=== PATIENT | female | born 1960 | race Caucasian/White ===

== ENCOUNTER 2020-02-18 09:33 | Outpatient (REF) | payer MEDICAID, SELFPAY ==
[2020-02-18 10:53] LABS: Alanine Aminotransferase 18 U/L (0-31); Albumin Level 4.6 g/dL (3.5-5.0); Alkaline Phosphatase 71 U/L (39-117); Anion Gap 13 (12-20); Aspartate Amino Transferase 24 U/L (5-31); Bilirubin Total 0.9 mg/dL (0.0-1.0); Blood Urea Nitrogen 15 mg/dL (9-16); Calcium 9.3 mg/dL (8.4-10.2); Carbon Dioxide 26 mmol/L (22-29); Chloride 104 mmol/L (96-108); Cholesterol 194 mg/dL; Estimated Glomerular Filt Rate > 60; Glucose Random 97 mg/dL (60-115); HDL Cholesterol 43 mg/dL; LDL Cholesterol Calculated 122 mg/dl; Potassium 4.2 mmol/l (3.3-5.1); Sodium 139 mmol/L (135-145); Total Protein 8.1 g/dL (6.5-8.0); Triglycerides 146 mg/dL
[2020-02-19 09:22] LABS: Mumps Virus IgG Antibody <9.00 AU/mL; Rubeola IgG (Measles) >300.00 AU/mL
[2020-02-19 17:37] LABS: Rubella IgG Antibody 9.86 Index
== END 2020-02-18 09:34 | disposition home or self-care (01) ==
LOC: HO.LAB 09:33
PROVIDERS: PCP Nurse Practitioner Community Health; Visit Provider Nurse Practitioner Community Health
DX: E78.5 Hyperlipidemia, unspecified (principal)
CPT/HCPCS: 80053; 80061; 86735; 86762; 86765

== ENCOUNTER 2020-05-21 14:33 | Outpatient (REF) | payer MEDICAID, SELFPAY ==
--- NOTE | ~2020-05-21 | MM_ITS ---
EXAMINATION: MM DIAGNOSTIC DIGITAL BREAST TOMOSYNTHESIS, BILATERAL CLINICAL INFORMATION: Six-month follow-up for question of bilateral breast densities which were not identified on ultrasound. The lifetime risk of breast cancer based on the Tyrer-Cuzick Model is 5.1%. COMPARISON: Mammography: October 07, 2019 and studies dating back to February 22, 2012 TECHNIQUE: Digital breast tomosynthesis is performed in both the craniocaudal and mediolateral oblique views along with computer-aided detection (CAD). Synthesized 2D images are generated from the tomosynthesis. FINDINGS: The breasts are heterogeneously dense, which may obscure small masses (ACR BI-RADS breast composition Category c). There are no significant masses, abnormal calcifications, or other abnormalities. Previously noted density superior to represent superimposition of fibroglandular tissue. Results are provided to the patient at time of visit by the technologist. MM/MM tomosynthesis diagnostic BI IMPRESSION: There are no significant changes from prior study. ASSESSMENT: BI-RADS 1: Negative RECOMMENDATION: Routine annual mammography screening due in 12 months. This patient's information was entered into a reminder system with a target due date for their next mammogram.
== END 2020-05-21 14:34 | disposition home or self-care (01) ==
LOC: HO.MAMMO 14:33
PROVIDERS: Visit Provider Nurse Practitioner Community Health
DX: R92.8 Other abnormal and inconclusive findings on diagnostic imaging of breast (principal)
CPT/HCPCS: 77062; 77066

== ENCOUNTER 2020-11-19 15:03 | Emergency (ER) | payer MEDICAID, SELFPAY ==
[2020-11-19 16:37] VITALS: BP 153/67; PULSE 73; RESP 18; TEMP 36.9; O2SAT 97; BMI 29.2
--- NOTE | 2020-11-19 18:18 | ED.GENADULT ---
HPI - General Adult General Chief complaint: Allergic Reaction Stated complaint: facial swelling Time Seen by Provider: 11/19/20 17:43 Source: patient and family (daughter) Mode of arrival: ambulatory Limitations: language barrier History of Present Illness HPI narrative: 60-year-old female here with her daughter who is interpreting presents for left facial swelling that happened at 2:30 p.m. after drinking lemonade. Patient was concerned she was having an allergic reaction. Stated she suddenly felt the left side of her face swollen. She did not feel short of breath, no throat swelling or lip swelling, no wheezing. No dental pain, patient has dentures. No fevers. 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 Related Data Previous Rx's Medication Instructions Recorded clindamycin HCl 300 mg capsule 450 mg PO TID 10 Days #45 cap 11/19/20 Allergies Allergy/AdvReac Type Severity Reaction Status Date / Time Penicillins Allergy Severe ANAPHYLAXIS Verified 11/19/20 17:35 AND BLEEDING penicillin V Allergy Unknown Unknown Verified 11/19/20 17:35 Review of Systems Constitutional: Constitutional: Denies body ache(s), Denies chills, Denies fatigue, Denies fever(s), Denies headache(s), Denies malaise and Denies weakness Eyes: Eyes: Denies diplopia ENT: Denies vertigo, Denies dizziness, Denies otalgia, Reports facial pain, Denies headache(s), Denies nasal congestion, Denies nasal discharge, Denies post nasal drip and Denies throat swelling Cardiovascular: Cardiovascular: Denies chest pain, Denies syncope, Denies leg edema, Denies lightheadedness, Denies Loss of Consciousness, Denies palpitations and Denies dyspnea Respiratory: Respiratory: Denies chest congestion, Denies cough and Denies dyspnea Gastrointestinal: Gastrointestinal: Denies abdominal pain, Denies nausea and Denies vomiting Musculoskeletal: Musculoskeletal: Reports no additional musculoskeletal complaints Neurologic: Denies confusion, Denies vertigo, Denies dizziness, Denies syncope, Denies headache(s) and Denies weakness Psychiatric: Psychiatric: Denies anxiety, Denies confusion and Denies depression Endocrine: Endocrine: Denies fatigue and Denies palpitations Allergic/Immunologic: Allergic/Immunologic: Denies throat swelling PMFSH Social History Social History Advance Directives: No Advance Directives Information Provided: No Patient : No Physical Exam Vital Signs: Vital Signs: Last Vital Signs Temp 98.4 F 11/19/20 16:37 Pulse 73 11/19/20 16:37 Resp 18 11/19/20 16:37 BP 153/67 H 11/19/20 16:37 Pulse Ox 97 11/19/20 16:37 Body Mass Index 29.2 Const: General: No confusion Nutritional Appearance: well nourished Orientation/consciousness: No confusion Limitations: no limitations HENMT: Other: No trismus Head: Yes normal to inspection, Yes normocephalic and Yes atraumatic Ears: hearing grossly normal bilaterally, TM's normal bilaterally and EAC's normal General nose exam: Normal external nose present Face and sinus: Yes Facial tenderness on exam of face and sinuses (left parotid area) Mouth: Normal oral and palatal mucosa present Teeth and gingiva: dentures Throat: Yes uvula midline and Yes abnormal tonsil (left tonsil stone) Eyes: Conjunctivae: conjunctivae normal Pupils: Equal, round and reactive pupils present EOM: EOMs intact bilaterally Neck: Neck: Yes full ROM, Yes no lymphadenopathy and Yes supple Resp: Effort & Inspection: normal respiratory effort and able to speak in complete sentences Auscultation: clear to auscultation bilaterally, no crackles, no rales, no rhonchi and no wheezes Cardio: Rate: regular rate Rhythm: regular rhythm Heart sounds: S1 normal heart sound present and S2 normal heart sound present GI: Inspection: Yes normal to inspection Palpation (GI): Soft to palpation, nontender, no guarding and not rigid Percussion: Yes normal to percussion Auscultation: normal bowel sounds Skin: General skin exam: no rashes or lesions noted Neuro: General: No confusion Cranial nerves: Yes Equal, round and reactive pupils present Extrem: General: Yes normal to inspection and Yes full ROM Psych: Appearance: grossly normal Affect: normal affect Attitude: cooperative Thought process: Normal thought process present Course Course Course Narrative: Patient has left facial swelling at the angle of her mandible, that got much worse when she drank a sour drink earlier today. On exam, patient has mildly erythematous posterior oropharynx, with an left tonsillar stone. Patient is tender swollen and mildly red around her parotid gland. Started her on clindamycin, gave return precautions to return if she has trouble opening her mouth, if she has fevers, if she has trouble swallowing. Discharge Plan Discharge Clinical Impression: Acute parotitis Patient Disposition: Home, Self-Care Additional Instructions: Please fill your prescription for antibiotics and take for the next 10 days. Please stay hydrated and take Tylenol or ibuprofen for pain Please return if you have fevers, he have trouble opening her mouth, or for any other new or concerning symptoms. We did see a tonsil stone in your left tonsil, I think this does not have anything to do with your current symptoms Please call your primary care provider for follow-up appointment within the next 2 weeks Prescriptions: New clindamycin HCl 300 mg capsule 450 mg PO TID 10 Days Qty: 45 RF: 0
== END 2020-11-19 18:22 | disposition home or self-care (01) ==
PROVIDERS: Emergency Provider Emergency Medicine
DX: K11.21 Acute sialoadenitis (principal); Z79.899 Other long term (current) drug therapy
CPT/HCPCS: 99283; 99284

== ENCOUNTER 2021-05-23 10:43 | Outpatient (REF) | payer MEDICAID, SELFPAY ==
--- NOTE | ~2021-05-23 | MM_ITS ---
EXAMINATION: MM SCREENING DIGITAL BREAST TOMOSYNTHESIS, BILATERAL CLINICAL INFORMATION: Screening. Asymptomatic. The lifetime risk of breast cancer based on the Tyrer-Cuzick Model is 4%. COMPARISON: Mammography: 05/21/2020, 10/07/2019, 04/07/2019, 03/26/2019, 07/07/2016 TECHNIQUE: Digital breast tomosynthesis is performed in both the craniocaudal and mediolateral oblique views along with computer-aided detection (CAD). Synthesized 2D images are generated from the tomosynthesis. Additional left CC view is provided. FINDINGS: The breasts are heterogeneously dense, which may obscure small masses (ACR BI-RADS breast composition Category c). Parenchymal pattern is similar to prior studies. 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 No interval significant mass or architectural abnormality or abnormal calcifications. The axilla and skin contours are unremarkable. MM/MM tomosynthesis screening BI IMPRESSION: No significant changes from prior studies. ASSESSMENT: BI-RADS 2: Benign RECOMMENDATION: Routine annual mammography screening. This patient's information was entered into a reminder system with a target due date for their next mammogram.
== END 2021-05-23 10:44 | disposition home or self-care (01) ==
LOC: HO.MAMMO 10:43
PROVIDERS: Visit Provider Nurse Practitioner Community Health
DX: Z12.31 Encounter for screening mammogram for malignant neoplasm of breast (principal)
CPT/HCPCS: 77063; 77067

== ENCOUNTER 2021-09-14 04:04 | Emergency (ER) | payer MEDICAID, SELFPAY ==
--- NOTE | ~2021-09-14 | XR_ITS ---
EXAMINATION: XR CHEST CLINICAL INFORMATION: Shortness of breath COMPARISON: 02/08/2017 TECHNIQUE: Frontal view of the chest was obtained. FINDINGS: The lungs are clear with no focal consolidation. No evidence of pneumothorax, pulmonary edema, or pleural effusions. The cardiomediastinal silhouette is unremarkable. No acute osseous findings. XR/XR chest 1V IMPRESSION: No acute cardiopulmonary findings.
[2021-09-14 04:18] VITALS: BP 156/61; PULSE 109; TEMP 38.8; O2SAT 98; BMI 30.9
[2021-09-14 04:43] LABS: Hematocrit 36.6 % (37.0-47.0); Hemoglobin 12.9 g/dl (12.0-16.0); Mean Corpuscular HGB Conc 35.2 g/dl (31.0-35.0); Mean Corpuscular Hemoglobin 27.6 pg (27.0-33.0); Mean Corpuscular Volume 78.2 fL (80.0-98.0); Mean Platelet Volume 10.3 fL (9.4-12.3); Platelet Count 199 X10*3/uL (160-400); Red Blood Count 4.68 X10*6/uL (4.20-5.50); Red Cell Distribution Width 13.8 % (11.0-16.0); White Blood Count 8.3 X10*3/uL (4.8-10.8)
[2021-09-14 04:47] LABS: Appearance Urine CLEAR; Color Urine YELLOW; Glucose Urine UA NEG (NEG); Leukocyte Esterase Urine NEG (NEG); Nitrite Urine NEG (NEG); Specific Gravity - Urine 1.025 (1.005-1.025); UACC Culture Trigger NO; Urine Blood 2+ (NEG); Urine Ketones NEG (NEG); Urine Protein TRACE MG/DL (NEG-TRACE)
[2021-09-14 04:52] LABS: COVID-19 Test Positive (Negative)
[2021-09-14 04:56] LABS: IDNOW Serial# 16C4AD1C; Influenza A Negative (Negative); Influenza B2 Negative (Negative)
[2021-09-14 05:05] LABS: Bacteria Urine 1+ /LPF; Mucus Urine 2+ /LPF; RBC Urine 0-2 /HPF (0); Squamous Epithelial Cell Urine 3+ /LPF
[2021-09-14 05:17] LABS: Alanine Aminotransferase 22 U/L (0-31); Albumin Level 4.5 g/dL (3.5-5.0); Alkaline Phosphatase 69 U/L (39-117); Anion Gap 11 (12-20); Aspartate Amino Transferase 27 U/L (5-31); Bilirubin Total 0.6 mg/dL (0.0-1.0); Blood Urea Nitrogen 13 mg/dL (9-16); Carbon Dioxide 27 mmol/L (22-29); Chloride 101 mmol/L (96-108); Creatinine Clr Calc Pharmacy 54.6; Estimated Glomerular Filt Rate 56; Glucose Random 97 mg/dL (60-115); Potassium 3.9 mmol/L (3.3-5.1); Sodium 135 mmol/L (135-145)
[2021-09-14 05:27] VITALS: TEMP 39.4
[2021-09-14] MEDS: Ondansetron ODT 4 MG TAB.RAPDIS TRANSLINGU (05:28)
[2021-09-14] MEDS: Acetaminophen 325 MG TABLET 650 MG PO (05:28)
--- NOTE | 2021-09-14 06:04 | ED_ITS ---
HPI - General Adult General Chief complaint: General Medical Stated complaint: 105 temp, vomiting, diarrhea, sore throat Time Seen by Provider: 09/14/21 05:56 Source: patient Mode of arrival: ambulatory Limitations: no limitations History of Present Illness HPI narrative: Patient comes to the emergency room complaining of fever, nausea, vomiting, sore throat. Patient states all her symptoms started approximately 3 hours ago, patient states that 3 days ago she was exposed to a patient that likely had COVID-19. Patient is not immunized for COVID-19. Patient states. Patient denies chest pain or shortness of breath. In triage, oxygen saturation 98%. Also, patient states that the vomiting is triggering her vertigo, due to the vomiting she has been unable to take any medications for vertigo. Related Data Previous Rx's Medication Instructions Recorded clindamycin HCl 300 mg capsule 450 mg PO TID 10 days #45 caps 11/19/20 ibuprofen 600 mg tablet 600 mg PO QID PRN fever or pain 09/14/21 #20 tabs meclizine 50 mg tablet 50 mg PO BID PRN dizziness #20 tabs 09/14/21 nirmatrelvir 300 mg (150 mg x See Rx Instructions PO .COMPLEX 09/14/21 2)-ritonavir 100 mg tablet (EUA) #30 tabs (Paxlovid) ondansetron HCl 4 mg tablet 4 mg PO Q6H PRN nausea and 09/14/21 vomiting #14 tabs Allergies Allergy/AdvReac Type Severity Reaction Status Date / Time Penicillins Allergy Severe ANAPHYLAXIS Verified 11/19/20 17:35 AND BLEEDING penicillin V Allergy Unknown Unknown Verified 11/19/20 17:35 Review of Systems Review of Systems: Constitutional : No Weight loss, complaining of fever, chills, fatigue, generalized malaise ENT/Mouth : No Hearing loss, No Ear Pain, No Nasal Congestion, No Sinus Pain, No Hoarseness, No sore throat, No Rhinorrhea, No Swallowing Difficulty Eyes: No Eye Pain, No Swelling, No Redness, No Foreign Body, No Discharge, No Vision Changes Cardiovascular : No Chest Pain, No SOB, No Dyspnea on Exertion, No Orthopnea, No Edema, No Palpitations Respiratory : No Cough, No Sputum, No Wheezing, No Smoke Exposure, No Dyspnea Gastrointestinal : Complaining of nausea and vomiting, No Diarrhea, No Constipation, complaining of mild epigastric pain,, No Hematochezia, No Melena Genitourinary : no irregular bleeding, No Dysuria, No Urinary Frequency, No Hematuria, No Urinary Incontinence, No Urgency, No Flank Pain, No Urinary Flow Changes, No Hesitancy Musculoskeletal : No joint pain, No Myalgias, No Joint Swelling Skin : No Skin Lesions, No rash Neuro : No Weakness, No Numbness, No Paresthesias, No Loss of Consciousness, No Dizziness, No Headache Psych : No Anxiety/Panic, No Depression, No SI/HI/AH/VH, No Social Issues, Heme/Lymph: No Bruising, No Bleeding,No Lymphadenopathy Endocrine : No Polyuria, No Polydipsia, No Temperature Intolerance [facility] Social History Social History Advance Directives: No Physical Exam ED Vital Signs: Vital Signs - 24 hr 09/14/21 04:18 09/14/21 05:27 09/14/21 07:08 Temperature 102 F H 102.9 F H 99.2 F Pulse Rate 109 H 106 H Respiratory Rate 18 Blood Pressure 156/61 H 116/53 L Pulse Oximetry 98 96 Oxygen Delivery Method Room Air Room Air BMI result Body Mass Index 30.9 Course Course Course Narrative: Discussed the labs and imaging with the patient. Patient aware that she tested positive for COVID-19. As mentioned above, patient has not been immunized. Patient was p.o. challenged, did not vomit, patient states that she feels well to go home, declined admission. Patient's oxygen saturation remains 96-98% on room air. Vertigo resolved. Medical Decision Making Lab Data Result diagrams: 09/14/21 04:31 09/14/21 04:31 Labs: Lab Results 09/14/21 09/14/21 09/14/21 Range/Units 04:31 04:31 04:31 WBC 8.3 (4.8-10.8) X10*3/uL RBC 4.68 (4.20-5.50) X10*6/uL Hgb 12.9 (12.0-16.0) g/dl Hct 36.6 L (37.0-47.0) % MCV 78.2 L (80.0-98.0) fL MCH 27.6 (27.0-33.0) pg MCHC 35.2 H (31.0-35.0) g/dl RDW 13.8 (11.0-16.0) % Plt Count 199 (160-400) X10*3/uL MPV 10.3 (9.4-12.3) fL Absolute Nucleated RBC 0.000 (0.0-0.012) X10*3/uL Nucleated RBC % (auto) 0.0 (0.0-0.2) /100WBC Sodium 135 (135-145) mmol/L Potassium 3.9 (3.3-5.1) mmol/L Chloride 101 (96-108) mmol/L Carbon Dioxide 27 (22-29) mmol/L Anion Gap 11 L (12-20) BUN 13 (9-16) mg/dL Creatinine 1.01 (0.5-1.4) mg/dL Estim Creat Clear Calc 54.6 Estimated GFR 56 Random Glucose 97 (60-115) mg/dL Calcium 9.0 (8.4-10.2) mg/dL Total Bilirubin 0.6 (0.0-1.0) mg/dL AST 27 (5-31) U/L ALT 22 (0-31) U/L Alkaline Phosphatase 69 (39-117) U/L Troponin I High Sens (<3.5-17.0) ng/L Total Protein 8.0 (6.5-8.0) g/dL Albumin 4.5 (3.5-5.0) g/dL Urine Color Urine Appearance Urine pH (5.0-8.0) Ur Specific [place] (1.005-1.025) Urine Protein (NEG-TRACE) MG/DL Urine Glucose (UA) (NEG) MG/DL Urine Ketones (NEG) MG/DL Urine Blood (NEG) Urine Nitrite (NEG) Ur Leukocyte Esterase (NEG) Urine RBC (0) /HPF Urine WBC (0-4) /HPF Ur Squamous Epith Cells /LPF Urine Bacteria /LPF Urine Mucus /LPF COVID-19 (GABRIELA) Positive A (Negative) COVID-19 Clin Com See Note Influenza Type A (ESTEFANI) (Negative) Influenza Type B (ESTEFANI) (Negative) Influenza A & B Note 09/14/21 09/14/21 09/14/21 Range/Units 04:31 04:31 04:31 WBC (4.8-10.8) X10*3/uL RBC (4.20-5.50) X10*6/uL Hgb (12.0-16.0) g/dl Hct (37.0-47.0) % MCV (80.0-98.0) fL MCH (27.0-33.0) pg MCHC (31.0-35.0) g/dl RDW (11.0-16.0) % Plt Count (160-400) X10*3/uL MPV (9.4-12.3) fL Absolute Nucleated RBC (0.0-0.012) X10*3/uL Nucleated RBC % (auto) (0.0-0.2) /100WBC Sodium (135-145) mmol/L Potassium (3.3-5.1) mmol/L Chloride (96-108) mmol/L Carbon Dioxide (22-29) mmol/L Anion Gap (12-20) BUN (9-16) mg/dL Creatinine (0.5-1.4) mg/dL Estim Creat Clear Calc Estimated GFR Random Glucose (60-115) mg/dL Calcium (8.4-10.2) mg/dL Total Bilirubin (0.0-1.0) mg/dL AST (5-31) U/L ALT (0-31) U/L Alkaline Phosphatase (39-117) U/L Troponin I High Sens < 3.5 (<3.5-17.0) ng/L Total Protein (6.5-8.0) g/dL Albumin (3.5-5.0) g/dL Urine Color YELLOW Urine Appearance CLEAR Urine pH 6.0 (5.0-8.0) Ur Specific [place] 1.025 (1.005-1.025) Urine Protein TRACE (NEG-TRACE) MG/DL Urine Glucose (UA) NEG (NEG) MG/DL Urine Ketones NEG (NEG) MG/DL Urine Blood 2+ H (NEG) Urine Nitrite NEG (NEG) Ur Leukocyte Esterase NEG (NEG) Urine RBC 0-2 (0) /HPF Urine WBC 5-9 H (0-4) /HPF Ur Squamous Epith Cells 3+ /LPF Urine Bacteria 1+ /LPF Urine Mucus 2+ /LPF COVID-19 (GABRIELA) (Negative) COVID-19 Clin Com Influenza Type A (ESTEFANI) Negative (Negative) Influenza Type B (ESTEFANI) Negative (Negative) Influenza A & B Note See Note Discharge Plan Discharge Clinical Impression: COVID-19, Nausea & vomiting, Vertigo Patient Disposition: Home, Self-Care Instructions: Acute Nausea and Vomiting (ED), COVID-19 (Coronavirus Disease 2019) (ED) Additional Instructions: Please follow-up with your primary care physician tomorrow. If you have any worsening or new symptoms, please return to the emergency room or call 911 Prescriptions: New Paxlovid (EUA) 300 mg (150 mg x 2)-100 mg tablet See Rx Instructions .ROUTE .COMPLEX Qty: 30 0RF Rx Instructions: take TWO 150 mg tablets of nirmatrelvir with ONE 100 mg tablet of ritonavir twice daily for 5 days meclizine 50 mg tablet 50 mg PO BID PRN (Reason: dizziness) Qty: 20 0RF ondansetron HCl 4 mg tablet 4 mg PO Q6H PRN (Reason: nausea and vomiting) Qty: 14 0RF ibuprofen 600 mg tablet 600 mg PO QID PRN (Reason: fever or pain) Qty: 20 0RF No Action clindamycin HCl 300 mg capsule 450 mg PO TID 10 Days Qty: 45 0RF
[2021-09-14] MEDS: 0.9 % Sodium Chloride 1,000 ML 999 ML IVCONT (06:23)
[2021-09-14] MEDS: Meclizine HCl 25 MG TABLET 50 MG PO (06:24)
[2021-09-14] MEDS: diazePAM 2 MG TABLET PO (06:24)
[2021-09-14] MEDS: Prochlorperazine Edisylate 10 MG/2 ML VIAL IVPUSH (06:24)
[2021-09-14 06:36] LABS: Troponin-I High Sensitivity < 3.5 ng/L (<3.5-17.0)
[2021-09-14 07:08] VITALS: BP 116/53; PULSE 106; RESP 18; TEMP 37.3; O2SAT 96
== END 2021-09-14 08:16 | disposition home or self-care (01) ==
PROVIDERS: Emergency Provider Emergency Medicine
DX: U07.1 COVID-19 (principal); R11.2 Nausea with vomiting, unspecified; R42 Dizziness and giddiness; Z79.899 Other long term (current) drug therapy
CPT/HCPCS: 71045; 80053; 81001; 84484; 85027; 87502; 87635; 96361; 96374; 99284

== ENCOUNTER 2022-02-19 19:48 | Emergency (ER) | payer MEDICAID, SELFPAY ==
[2022-02-19 20:31] VITALS: BP 155/72; PULSE 110; RESP 20; TEMP 37.3; O2SAT 99; BMI 29.4
[2022-02-19 20:52] VITALS: BP 148/80; PULSE 104; RESP 18; TEMP 37.1; O2SAT 99
--- NOTE | 2022-02-19 21:00 | ED.GENADULT ---
HPI - General Adult General Chief complaint: General Medical Stated complaint: abd pain, vomit, throat pain Time Seen by Provider: 02/19/22 21:00 Source: patient and family Mode of arrival: ambulatory Limitations: language barrier History of Present Illness HPI narrative: 62-year-old female presents with body aches, cough, sore throat, nausea and vomiting. Nausea and vomiting started today. Onset (ago): day(s) Severity: moderate Severity scale (1-10): 5 Quality: aching Pain Consistency: constant Associated symptoms: cough, fever/chills, headaches, loss of appetite, malaise, nausea/vomiting and weakness Treatments prior to arrival: none Related Data Previous Rx's Medication Instructions Recorded clindamycin HCl 300 mg capsule 450 mg PO TID 10 days #45 caps 11/19/20 ibuprofen 600 mg tablet 600 mg PO QID PRN fever or pain 09/14/21 #20 tabs meclizine 50 mg tablet 50 mg PO BID PRN dizziness #20 tabs 09/14/21 nirmatrelvir 300 mg (150 mg See Rx Instructions PO .COMPLEX 09/14/21 x2)-ritonavir 100 mg tablet,dose #30 tabs pack(EUA) (Paxlovid) ondansetron HCl 4 mg tablet 4 mg PO Q6H PRN nausea and 09/14/21 vomiting #14 tabs albuterol sulfate 90 mcg/actuation 2 inh inhalation Q4H PRN shortness 02/19/22 breath activated powder inhaler of breath or wheezing #1 ea benzonatate 100 mg capsule 100 mg PO TID PRN cough #14 caps 02/19/22 ondansetron 4 mg disintegrating 4 mg PO Q8H PRN nausea and 02/19/22 tablet vomiting #20 tabs Allergies Allergy/AdvReac Type Severity Reaction Status Date / Time Penicillins Allergy Severe ANAPHYLAXIS Verified 02/19/22 20:39 AND BLEEDING penicillin V Allergy Unknown Unknown Verified 02/19/22 20:39 Review of Systems Review of Systems: Constitutional: positive Fever, positive Chills, positive fatigue, positive Malaise ENT/Mouth: positive sore throat, positive runny nose Eyes: No Discharge Cardiovascular: No Chest Pain, No SOB Respiratory: Positive Cough, No Sputum, No Wheezing, No Dyspnea Gastrointestinal: Positive Nausea, phos Vomiting, No Diarrhea Musculoskeletal: positive Myalgia Skin: No rash Neuro: Positive Headache Yes all other systems are reviewed and are negative [facility] Past Medical History Attestation statement: The following information was validated with the patient. Source: old records reviewed Social History Social History Advance Directives: No Advance Directives Information Provided: No Physical Exam ED Vital Signs: Vital Signs - 24 hr 02/19/22 20:31 02/19/22 20:52 Temperature 99.2 F 98.8 F Pulse Rate 110 H 104 H Respiratory Rate 20 18 Blood Pressure 155/72 H 148/80 H Pulse Oximetry 99 99 Oxygen Delivery Method Room Air Room Air BMI result Body Mass Index 29.4 Appearance: Alert. Oriented X3. No acute distress. Eyes: Pupils equal, round and reactive to light. ENT: Pharynx normal. Positive rhinorrhea. Neck: Normal inspection. Neck supple. CVS: Tachycardic heart rate and rhythm. Pulses normal. Respiratory: No respiratory distress. Breath sounds normal. Abdomen: Soft and nontender. Skin: Skin warm and dry. Normal skin color. Normal skin turgor. Extremities: No lower extremity edema. Gait well balanced well coordinated. Neuro: No motor deficit. No sensory deficit. Cranial nerves 2-12 intact Course Course Course Narrative: 62-year-old female presents with upper respiratory symptoms consistent with influenza versus COVID. Patient also complains of nausea and vomiting. Will order COVID influenza RSV testing. Patient is afebrile, appears nontoxic, does have some rhinorrhea, and appears tired. Patient is tachycardic, low likelihood of sepsis at this time as I feel that her symptoms are most likely viral. If viral panel comes back negative will investigate for other sources of infection. COVID influenza RSV positive for COVID. I did discuss supportive measures with this patient. She recently had paxlovid, paxlovid not indicated for this patient at this time. I did discuss this in detail with her family. Patient verbalized understanding of and agrees to plan of care discharge home. Verbalized understanding of supportive measures. Verbalized understanding of signs symptoms indicating need for emergent intervention. Medications Administered Discontinued Medications Generic Name Dose Route Start Last Admin Trade Name Freq PRN Reason Stop Dose Admin Acetaminophen 650 mg 02/19/22 21:01 02/19/22 21:21 Acetaminophen 325 Mg Tablet PO 02/19/22 21:02 650 mg ONCE ONE Administration Ondansetron HCl 4 mg 02/19/22 21:23 02/19/22 21:32 Ondansetron Odt 4 Mg Tab.Rapdis TRANSLINGU 02/19/22 21:24 4 mg ONCE ONE Administration Medical Decision Making Differential Diagnosis Differential Diagnoses: The differential diagnosis associated with the presentation includes COVID, influenza, RSV, pneumonia, viral syndrome Admission/Observation Consideration of admission/observation: Escalation of care including admission/observation considered Becomes hypoxic will consider admission otherwise discharged home Lab Data MDM Lab Attestation statement: I reviewed the patient's lab results. Labs: Lab Results 02/19/22 Range/Units 20:55 Influenza Type A (PCR) NEGATIVE (Negative) Influenza Type B (PCR) NEGATIVE (Negative) RSV RNA Qual (PCR) NEGATIVE (Negative) SARS-CoV-2 RNA (RT-PCR) POSITIVE A (Negative) Discharge Plan Discharge Clinical Impression: COVID-19 Patient Disposition: Home, Self-Care Instructions: Covid-19 Viral Syndrome and Novel Coronavirus (ED) Hey/Ath, COVID-19 (Coronavirus Disease 2019) (ED) Additional Instructions: Has dado positivo por COVID-19. Favor de continuar con las medidas de apoyo. [place] Tylenol 650 mg cada 6 horas y Motrin 600 mg cada 6 horas seg?n sea necesario para controlar el dolor y la fiebre. Anote a qu? hora aleyda estos medicamentos para evitar jorge sobredosis accidental. [place] Tessalon Perles cada 8 horas seg?n sea necesario para la tos. Use un inhalador de albuterol para la dificultad para respirar. [place] Zofran cada 8 horas seg?n sea necesario para las n?useas y los v?mitos. [place] medicamento tambi?n lo hace debajo de la lengua. Descansa, sayda muchos l?quidos. Imriam por elegir lashonda departamento de emergencias para dumont evaluaci?n. Por favor, yesica un seguimiento con el m?dico de atenci?n primaria seg?n sea necesario. Regrese al departamento de emergencias por cualquier s?ntoma nuevo, preocupante o que empeore. You tested positive for COVID-19. Please continue with supportive measures. Alternate Tylenol 650 mg every 6 hours and Motrin 600 mg every 6 hours as needed for pain and fever management. Write down what time you take these medications to prevent accidental overdose. Take Tessalon Perles every 8 hours as needed for cough. Use albuterol inhaler for shortness of breath. Take Zofran every 8 hours as needed for nausea and vomiting. This medication does also under the tongue. Rest, drink plenty of fluids. Thank you for choosing this emergency department for evaluation. Please follow-up with primary care physician as needed. Return to the emergency department for any new, concerning, or worsening symptoms. Prescriptions: New ondansetron 4 mg tablet,disintegrating 4 mg PO Q8H PRN (Reason: nausea and vomiting) Qty: 20 0RF albuterol sulfate 90 mcg/actuation aerosol powdr breath activated 2 inh inhalation Q4H PRN (Reason: shortness of breath or wheezing) Qty: 1 0RF Rx Instructions: May dispense medication equivalent accepted by patient's insurance benzonatate 100 mg capsule 100 mg PO TID PRN (Reason: cough) Qty: 14 0RF No Action clindamycin HCl 300 mg capsule 450 mg PO TID 10 Days Qty: 45 0RF Paxlovid (EUA) 300 mg (150 mg x 2)-100 mg tablet See Rx Instructions .ROUTE .COMPLEX Qty: 30 0RF Rx Instructions: take TWO 150 mg tablets of nirmatrelvir with ONE 100 mg tablet of ritonavir twice daily for 5 days meclizine 50 mg tablet 50 mg PO BID PRN (Reason: dizziness) Qty: 20 0RF ondansetron HCl 4 mg tablet 4 mg PO Q6H PRN (Reason: nausea and vomiting) Qty: 14 0RF ibuprofen 600 mg tablet 600 mg PO QID PRN (Reason: fever or pain) Qty: 20 0RF Interventions: ED Discharge Assessment Last Done: 02/19/22 22:08 Discharge Date/Time: 02/19/22 22:10
[2022-02-19 21:37] LABS: Influenza A PCR NEGATIVE (Negative); Influenza B PCR NEGATIVE (Negative); Resp Syncy Virus RNA Qual PCR NEGATIVE (Negative); SARS COV2 PCR INHOUSE POSITIVE (Negative)
== END 2022-02-19 22:10 | disposition home or self-care (01) ==
PROVIDERS: Emergency Medicine; Emergency Provider Internal Medicine; PCP Physician Assistant Medical
DX: U07.1 COVID-19 (principal); R05.9 Cough, unspecified; R50.9 Fever, unspecified; M79.10 Myalgia, unspecified site
CPT/HCPCS: 0241U; 99283

== ENCOUNTER 2022-04-24 23:27 | Emergency (ER) | payer MEDICAID, SELFPAY ==
--- NOTE | ~2022-04-24 | CT_ITS ---
EXAMINATION: CT ABDOMEN AND PELVIS WITHOUT CONTRAST CLINICAL INFORMATION: Right flank pain, question stone COMPARISON: 11/08/2018 TECHNIQUE: Multidetector volumetric imaging was performed from the superior aspect of the liver through the pubic symphysis. Sagittal and coronal reformatted images were obtained on the technologist's workstation. This CT examination was performed using dose optimization techniques as appropriate, variously including the following: *Automated exposure control *Adjustment of mA and/or kV according to patient size (this includes techniques or standardized protocols for targeted exams where dose is matched to indication/reason for exam; i.e. extremities or head) *Use of iterative reconstruction technique DLP: 527 mGy-cm FINDINGS: LUNG BASES: The visualized lung bases are unremarkable. LIVER, GALLBLADDER, AND BILIARY TREE: The liver is normal in size, shape, and attenuation. No focal hepatic lesion or biliary ductal dilatation is identified. Patient is status post cholecystectomy. PANCREAS: Unremarkable. SPLEEN: Unremarkable. ADRENAL GLANDS: Unremarkable. KIDNEYS AND URETERS: The kidneys are normal in size, shape, and attenuation. No hydronephrosis, hydroureter, or calculi seen. No perinephric stranding. BLADDER: Unremarkable. GASTROINTESTINAL TRACT: No evidence of bowel obstruction or significant wall thickening. The appendix is unremarkable. No free fluid or free air is seen. ABDOMINAL WALL: No significant hernia is appreciated. LYMPH NODES: Normal. VASCULAR: Unremarkable. PELVIC VISCERA: An approximately 1.8 cm exophytic fibroid is suspected off the uterine fundus. OSSEOUS STRUCTURES: Scattered endplate osteophytes in the spine. CT/CT abdomen pelvis wo IV con IMPRESSION: No acute findings identified in the abdomen/pelvis. No hydronephrosis or obstructing calculus.
[2022-04-24 23:36] VITALS: BP 176/73; PULSE 80; RESP 20; TEMP 36.6; O2SAT 98; BMI 32.3
--- NOTE | 2022-04-25 00:03 | ED.BACK ---
HPI - Back Pain/Injury General Chief Complaint: Back Pain/Injury Stated Complaint: Lower back and right side pain Time Seen by Provider: 04/25/22 00:03 Source: patient Mode of arrival: ambulatory Limitations: no limitations History of Present Illness HPI Narrative: Patient history of back pain in the past comes here for similar pain in the right side started early today increases on movement associated with nausea no vomiting no urinary complaints patient never had kidney stones no fever or chills Related Data Previous Rx's Medication Instructions Recorded clindamycin HCl 300 mg capsule 450 mg PO TID 10 days #45 caps 11/19/20 ibuprofen 600 mg tablet 600 mg PO QID PRN fever or pain 09/14/21 #20 tabs meclizine 50 mg tablet 50 mg PO BID PRN dizziness #20 tabs 09/14/21 nirmatrelvir 300 mg (150 mg See Rx Instructions PO .COMPLEX 09/14/21 x2)-ritonavir 100 mg tablet,dose #30 tabs pack(EUA) (Paxlovid) ondansetron HCl 4 mg tablet 4 mg PO Q6H PRN nausea and 09/14/21 vomiting #14 tabs albuterol sulfate 90 mcg/actuation 2 inh inhalation Q4H PRN shortness 02/19/22 breath activated powder inhaler of breath or wheezing #1 ea benzonatate 100 mg capsule 100 mg PO TID PRN cough #14 caps 02/19/22 ondansetron 4 mg disintegrating 4 mg PO Q8H PRN nausea and 02/19/22 tablet vomiting #20 tabs cefuroxime axetil 250 mg tablet 250 mg PO BID 7 days #14 tabs 04/25/22 cyclobenzaprine 10 mg tablet 10 mg PO Q8H #20 tabs 04/25/22 tramadol 50 mg tablet 50 mg PO Q8H PRN pain #9 tabs 04/25/22 Allergies Allergy/AdvReac Type Severity Reaction Status Date / Time Penicillins Allergy Severe ANAPHYLAXIS Verified 02/19/22 20:39 AND BLEEDING penicillin V Allergy Unknown Unknown Verified 02/19/22 20:39 Review of Systems Review of Systems: Yes all other systems are reviewed and are negative PMFSH Social History Social History Advance Directives: No Patient : No Physical Exam Vital Signs: Vital Signs: Last Vital Signs Temp 97.9 F 04/24/22 23:36 Pulse 80 04/24/22 23:36 Resp 15 04/25/22 00:50 BP 176/73 H 04/24/22 23:36 Pulse Ox 98 04/24/22 23:36 O2 Del Method 04/24/22 23:36 BMI result Body Mass Index 32.3 Appearance: Alert. Oriented X3. In mod distress. Eyes: PERRLA, No Nystagmus ENT: Pharynx normal. Oral Mucosa moist Neck: Normal inspection. Neck supple. CVS: Normal heart rate and rhythm. Pulses normal. Respiratory: No respiratory distress. Equal air entry bilateral, no wheezing/rales/rhonchi Abdomen: Soft and nontender. Bowel sounds are present, no mass palpable,R CVA tenderness back; diffuse muscle tenderness right-sided traumatic chest all the way to R lower ribcage Skin: Skin warm and dry. Normal skin color. Normal skin turgor. Extremities: No lower extremity edema. No calf tenderness Neuro: Oriented X 3. No motor deficit. No sensory deficit.No cerebellar signs , cranial nerves II-XII intact Medications Administered Discontinued Medications Generic Name Dose Route Start Last Admin Trade Name Freq PRN Reason Stop Dose Admin Sodium Chloride 1,000 mls @ 999 mls/hr 04/25/22 00:08 04/25/22 00:50 Ns IV 04/25/22 01:08 999 mls/hr .Q1H1M ONE Administration Ceftriaxone Sodium 1 gm/ 50 mls @ 100 mls/hr 04/25/22 02:35 04/25/22 02:53 Sodium Chloride IV 04/25/22 03:04 100 mls/hr ONCE ONE Administration Morphine Sulfate 4 mg 04/25/22 00:09 04/25/22 00:50 Morphine Sulfate 4 Mg/Ml Cartridge IVPUSH 04/25/22 00:10 4 mg ONCE ONE Administration Protocol Ondansetron HCl 4 mg 04/25/22 00:09 04/25/22 00:50 Ondansetron Hcl 4 Mg/2 Ml Vial IVPUSH 04/25/22 00:10 4 mg ONCE ONE Administration Medical Decision Making Medical Decision Making MDM Narrative: Patient with similar pain off and on the past at this time workup is negative CT scan negative for kidney stone likely patient has muscular pain patient UA showed wbc's and large amount of leuko Estrase will start patient home on Ceftin received 1 dose of Rocephin in the ER Lab Data MDM Lab Attestation statement: I reviewed the patient's lab results. 04/25/22 00:03 04/25/22 00:03 Labs: Lab Results 04/25/22 04/25/22 04/25/22 Range/Units 00:03 00:03 02:07 WBC 10.8 (4.8-10.8) X10*3/uL RBC 5.05 (4.20-5.50) X10*6/uL Hgb 13.8 (12.0-16.0) g/dl Hct 39.4 (37.0-47.0) % MCV 78.0 L (80.0-98.0) fL MCH 27.3 (27.0-33.0) pg MCHC 35.0 (31.0-35.0) g/dl RDW 13.6 (11.0-16.0) % Plt Count 237 (160-400) X10*3/uL MPV 10.2 (9.4-12.3) fL Immature Gran % (Auto) 0.3 (0.0-0.4) % Neut % (Auto) 62.6 (45-73) % Lymph % (Auto) 27.3 (20-40) % [place] % (Auto) 7.6 (2-11) % Eos % (Auto) 1.6 (0-4) % Baso % (Auto) 0.6 (0-2) % Lymph # (Auto) 3.0 (1.2-4.9) X10*3/uL [place] # (Auto) 0.8 (0.1-1.2) X10*3/uL Eos # (Auto) 0.2 (0.0-0.4) X10*3/uL Baso # (Auto) 0.1 (0.0-0.2) X10*3/uL Abs Immat Gran (auto) 0.03 (0.00-0.03) X10*3/uL Absolute Neuts (auto) 6.8 (2.0-8.3) x10*3/uL Absolute Nucleated RBC 0.000 (0.0-0.012) X10*3/uL Nucleated RBC % (auto) 0.0 (0.0-0.2) /100WBC Sodium 138 (135-145) mmol/L Potassium 3.9 (3.3-5.1) mmol/L Chloride 103 (96-108) mmol/L Carbon Dioxide 25 (22-29) mmol/L Anion Gap 14 (12-20) BUN 12 (9-16) mg/dL Creatinine 0.87 (0.5-1.4) mg/dL Estim Creat Clear Calc 58.9 Estimated GFR > 60 Random Glucose 96 (60-115) mg/dL Calcium 9.2 (8.4-10.2) mg/dL Urine Color Yellow Urine Appearance Clear Urine pH 6.0 (5.0-9.0) Ur Specific [place] 1.010 (1.005-1.025) Urine Protein Negative (Neg-Trace) mg/dL Urine Glucose (UA) Negative (Negative) mg/dL Urine Ketones Negative (Negative) mg/dL Urine Blood Negative (Negative) Urine Nitrite Negative (Negative) Ur Leukocyte Esterase Large (3+) H (Negative) Urine RBC 0-2 (0-2) /HPF Urine WBC >50 H (0-5) /HPF Ur Squamous Epith Cells 3-5 (0-2) /HPF Urine Bacteria None Seen (None Seen) Hyaline Casts 0-2 (0-2) /LPF Discharge Plan Discharge Clinical Impression: Strain of lumbar region, UTI (urinary tract infection) Patient Disposition: Home, Self-Care Instructions: Urinary Tract Infection in Women (ED), Low Back Strain (ED) Additional Instructions: Take tramadol for pain and Flexeril for muscle relaxer Your CT scan is negative for any acute pathology no kidney stone was seen Follow with PCP not better Drink plenty of fluids and take antibiotic for UTI Prescriptions: New cyclobenzaprine 10 mg tablet 10 mg PO Q8H Qty: 20 0RF tramadol 50 mg tablet 50 mg PO Q8H PRN (Reason: pain) Qty: 9 0RF cefuroxime axetil 250 mg tablet 250 mg PO BID 7 Days Qty: 14 0RF No Action clindamycin HCl 300 mg capsule 450 mg PO TID 10 Days Qty: 45 0RF Paxlovid (EUA) 300 mg (150 mg x 2)-100 mg tablet See Rx Instructions .ROUTE .COMPLEX Qty: 30 0RF Rx Instructions: take TWO 150 mg tablets of nirmatrelvir with ONE 100 mg tablet of ritonavir twice daily for 5 days meclizine 50 mg tablet 50 mg PO BID PRN (Reason: dizziness) Qty: 20 0RF ondansetron HCl 4 mg tablet 4 mg PO Q6H PRN (Reason: nausea and vomiting) Qty: 14 0RF ibuprofen 600 mg tablet 600 mg PO QID PRN (Reason: fever or pain) Qty: 20 0RF ondansetron 4 mg tablet,disintegrating 4 mg PO Q8H PRN (Reason: nausea and vomiting) Qty: 20 0RF albuterol sulfate 90 mcg/actuation aerosol powdr breath activated 2 inh inhalation Q4H PRN (Reason: shortness of breath or wheezing) Qty: 1 0RF Rx Instructions: May dispense medication equivalent accepted by patient's insurance benzonatate 100 mg capsule 100 mg PO TID PRN (Reason: cough) Qty: 14 0RF
[2022-04-25 00:08] LABS: MANUAL DIFF FLAG NO
[2022-04-25 00:13] LABS: Basophils Absolute Auto 0.1 X10*3/uL (0.0-0.2); Basophils Percent Auto 0.6 % (0-2); Eosinophils Absolute Auto 0.2 X10*3/uL (0.0-0.4); Eosinophils Percent Auto 1.6 % (0-4); Hematocrit 39.4 % (37.0-47.0); Hemoglobin 13.8 g/dl (12.0-16.0); Imm Gran Abs Auto 0.03 X10*3/uL (0.00-0.03); Imm Gran Pct Auto 0.3 % (0.0-0.4); Lymphocytes Percent Auto 27.3 % (20-40); Mean Corpuscular Hemoglobin 27.3 pg (27.0-33.0); Mean Platelet Volume 10.2 fL (9.4-12.3); Monocytes Absolute Auto 0.8 X10*3/uL (0.1-1.2); Monocytes Percent Auto 7.6 % (2-11); Neutrophils Absolute Auto 6.8 x10*3/uL (2.0-8.3); Neutrophils Percent Auto 62.6 % (45-73); Platelet Count 237 X10*3/uL (160-400); Red Blood Count 5.05 X10*6/uL (4.20-5.50); Red Cell Distribution Width 13.6 % (11.0-16.0); White Blood Count 10.8 X10*3/uL (4.8-10.8)
[2022-04-25 00:25] LABS: Anion Gap 14 (12-20); Blood Urea Nitrogen 12 mg/dL (9-16); Calcium 9.2 mg/dL (8.4-10.2); Carbon Dioxide 25 mmol/L (22-29); Chloride 103 mmol/L (96-108); Creatinine Clr Calc Pharmacy 58.9; Estimated Glomerular Filt Rate > 60; Glucose Random 96 mg/dL (60-115); Potassium 3.9 mmol/L (3.3-5.1); Sodium 138 mmol/L (135-145)
[2022-04-25 00:50] VITALS: RESP 15
[2022-04-25] MEDS: Morphine Sulfate 4 MG/ML CARTRIDGE IVPUSH (00:50)
[2022-04-25] MEDS: 0.9 % Sodium Chloride 1,000 ML 999 ML IV (00:50)
[2022-04-25] MEDS: ondansetron HCL 4 MG/2 ML VIAL IVPUSH (00:50)
[2022-04-25 02:19] LABS: Appearance Urine Clear; Color Urine Yellow; Glucose Urine UA Negative (Negative); Leukocyte Esterase Urine Large (3+) (Negative); Nitrite Urine Negative (Negative); UMIC TRIGGER UACC YES; Urine Blood Negative (Negative); Urine Ketones Negative (Negative); Urine Protein Negative (Neg-Trace)
[2022-04-25 02:24] LABS: Bacteria Urine None Seen (None Seen); Hyaline Casts Urine 0-2 /LPF (0-2); RBC Urine 0-2 /HPF (0-2); UACC Culture Trigger YES; WBC Urine >50 /HPF (0-5)
--- NOTE | 2022-04-25 02:40 | PC.NURSE ---
Per Dr. Sullivan blood cultures not needed to be drawn.
[2022-04-25] MEDS: cefTRIAXone sodium 1 GM in 0.9 % Sodium Chloride 50 ML IV (02:53)
--- NOTE | 2022-04-25 03:03 | PC.NURSE ---
Patient is alert and oriented x3. Patient is afebrile vital signs are stable and medicated with morphine with improvement in level of pain from 10 out of 10 to 3 out of 10. IV Ceftrixone administered per MAR. Patient tolerating IV antibiotics without adverse reactions noted. Call saez within patient reach. Son at patients bedside and will be discharged home with oral antibiotics.
[2022-04-25 04:29] VITALS: BP 166/87; PULSE 87; RESP 16; TEMP 36.6; O2SAT 98
== END 2022-04-25 04:33 | disposition home or self-care (01) ==
PROVIDERS: Emergency Provider Internal Medicine; PCP Nurse Practitioner Community Health
DX: N39.0 Urinary tract infection, site not specified (principal); M54.50 Low back pain, unspecified; R11.2 Nausea with vomiting, unspecified; Z79.899 Other long term (current) drug therapy
CPT/HCPCS: 36415; 74176; 80048; 81001; 85025; 87086; 96361; 96365; 96375; 99284; 99285; J0696; J2270; J2405

== ENCOUNTER 2022-05-27 08:08 | Outpatient (REF) | payer MEDICAID, SELFPAY ==
--- NOTE | ~2022-05-27 | MM_ITS ---
EXAMINATION: MM SCREENING DIGITAL BREAST TOMOSYNTHESIS, BILATERAL CLINICAL INFORMATION: Screening. Asymptomatic. The lifetime risk of breast cancer based on the Tyrer-Cuzick Model is 4%. COMPARISON: Multiple prior mammography exams, most recent 05/23/2021. TECHNIQUE: Digital breast tomosynthesis is performed in both the craniocaudal and mediolateral oblique views along with computer-aided detection (CAD). Synthesized 2D images are generated from the tomosynthesis. FINDINGS: The breasts are heterogeneously dense, which may obscure small masses (ACR BI-RADS breast composition Category c). Parenchymal pattern is similar to prior studies and there is no interval significant mass or architectural abnormality or developing density. There are scattered bilateral parenchymal asymmetries again seen similar to prior studies. Chronic bilateral retroareolar duct ectasia again seen. There are no abnormal calcifications. The axilla are unremarkable. No significant changes. MM/MM tomosynthesis screening BI IMPRESSION: No mammographic evidence of malignancy. ASSESSMENT: BI-RADS 2: Benign RECOMMENDATION: Routine annual mammography screening. This patient's information was entered into a reminder system with a target due date for their next mammogram.
== END 2022-05-27 08:09 | disposition home or self-care (01) ==
LOC: HO.MAMMO 08:08
PROVIDERS: PCP Nurse Practitioner Community Health; Visit Provider Nurse Practitioner Community Health
DX: Z12.31 Encounter for screening mammogram for malignant neoplasm of breast (principal)
CPT/HCPCS: 77063; 77067

== ENCOUNTER 2023-04-16 10:04 | Emergency (ER) | payer MEDICAID, SELFPAY ==
--- NOTE | ~2023-04-16 | CT_ITS ---
CT ANGIOGRAM NECK WITH CONTRAST CT ANGIOGRAM BRAIN WITH CONTRAST CLINICAL INFORMATION: Severe headache and dizziness COMPARISON: CTA neck 02/18/2017. Brain MRI from the same day. TECHNIQUE: Test bolus sequences followed by intravenous administration 70 mL of Omnipaque 350. Helical imaging was performed in the axial plane from the thoracic inlet to the skull vertex. Delayed postcontrast imaging of the head was also performed. The data was processed at the angio technologist workstation for generation of MIP sequences. Angled MIPs and volume rendered reformatted images were also generated at an offline 3D workstation under concurrent supervision. Stenoses are assessed in accordance with NASCET criteria unless otherwise indicated. This CT examination was performed using dose optimization techniques as appropriate, variously including the following: *Automated exposure control *Adjustment of mA and/or kV according to patient size (this includes techniques or standardized protocols for targeted exams where dose is matched to indication/reason for exam; i.e. extremities or head) *Use of iterative reconstruction technique FINDINGS: BRAIN: There is mineralization within the globus pallidus bilaterally. [There is no intracranial hemorrhage, hydrocephalus, extra-axial surface collection, midline shift, or other herniation pattern. Reyes to white matter differentiation is diffusely maintained without evidence of an evolved acute territorial infarct. The basilar cisterns are preserved. No significant soft tissue abnormality. No acute osseous abnormality. Small fluid level within the left maxillary sinus. CERVICAL SOFT TISSUES AND LUNG APICES: The imaged upper lungs are clear. Multilevel cervical spondylosis. There is a heterogeneous and enlarged multinodular thyroid gland with the largest nodule measuring at least 2.2 cm in size. Thyroid ultrasound recommended for further assessment. NECK CTA: [There is a classic 3 vessel configuration of the aortic arch. Proximal arch vessels are non-stenotic. The vertebral arteries are codominant. No significant ostial stenosis is visualized on either side. Both vertebral arteries are widely patent throughout their extracranial cervical course. Both common carotid arteries are normal in course and caliber.] Retropharyngeal course of the proximal cervical internal carotid arteries bilaterally. BRAIN CTA: [There is normal opacification of major intracranial arteries. No focal flow-limiting stenosis nor discrete proximal large artery occlusion. 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 Timing of the contrast bolus allows assessment of the major dural venous sinuses, which all opacify normally] CT/CT angio head neck IMPRESSION: - No acute intracranial findings. - No acute arterial occlusions and no significant arterial stenoses within the head or neck. 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 - There is a heterogeneous and enlarged multinodular thyroid gland with the largest nodule measuring at least 2.2 cm in size. Thyroid ultrasound recommended for further assessment. - Multilevel cervical spondylosis.
[2023-04-16 10:09] VITALS: BP 169/108; PULSE 91; O2SAT 100
[2023-04-16 10:13] VITALS: BP 142/56; PULSE 90; RESP 18; TEMP 36.6; O2SAT 99; BMI 28.6
--- NOTE | 2023-04-16 11:01 | ED_ITS ---
HPI - Dizziness General Chief Complaint: Dizziness Stated Complaint: DIZZY, N/V,HIGH BP 167/108 PER EMS Time Seen by Provider: 04/16/23 10:39 Source: patient Mode of arrival: EMS Limitations: no limitations History of Present Illness HPI Narrative: THIS IS A 63 YEARS OLD FEMALE PRESENTED BY AMBULANCE WITH A CHIEF COMPLAINT OF PRESSURE IN THE HEAD VOMITING DIZZINESS STARTED THIS MORNING. PATIENT HAS HISTORY OF HYPERCHOLESTEROLEMIA HISTORY OF DIZZINESS IN THE PAST. DENIES ANY FEVER CHEST PAIN SHORTNESS OF BREATH MD elicited complaint: dizziness Onset (ago): hour(s) (4) Timing: gradual onset Severity: moderate Description: sense of movement History of similar symptoms: No Exacerbating factors: nothing Relieving factors: nothing Associated symptoms: nausea and vomiting Related Data Previous Rx's Medication Instructions Recorded clindamycin HCl 300 mg capsule 450 mg (1.5 x 300 mg) PO TID 10 11/19/20 days #45 caps ibuprofen 600 mg tablet 600 mg PO QID PRN fever or pain 09/14/21 #20 tabs meclizine 50 mg tablet 50 mg PO BID PRN dizziness #20 tabs 09/14/21 nirmatrelvir 300 mg (150 mg See Rx Instructions PO .COMPLEX 09/14/21 x2)-ritonavir 100 mg tablet,dose #30 tabs pack (Paxlovid) ondansetron HCl 4 mg tablet 4 mg PO Q6H PRN nausea and 09/14/21 vomiting #14 tabs albuterol sulfate 90 mcg/actuation 2 inh inhalation Q4H PRN shortness 02/19/22 breath activated powder inhaler of breath or wheezing #1 ea benzonatate 100 mg capsule 100 mg PO TID PRN cough #14 caps 02/19/22 ondansetron 4 mg disintegrating 4 mg PO Q8H PRN nausea and 02/19/22 tablet vomiting #20 tabs cefuroxime axetil 250 mg tablet 250 mg PO BID 7 days #14 tabs 04/25/22 cyclobenzaprine 10 mg tablet 10 mg PO Q8H #20 tabs 04/25/22 tramadol 50 mg tablet 50 mg PO Q8H PRN pain #9 tabs 04/25/22 meclizine 25 mg tablet 25 mg PO TID PRN dizziness #15 tabs 04/16/23 ondansetron HCl 4 mg tablet 4 mg PO TID PRN nausea and 04/16/23 vomiting 24 hours #21 tabs Allergies Allergy/AdvReac Type Severity Reaction Status Date / Time Penicillins Allergy Severe ANAPHYLAXIS Verified 02/19/22 20:39 AND BLEEDING penicillin V Allergy Unknown Unknown Verified 02/19/22 20:39 Review of Systems 2 Constitutional: Constitutional: Reports no additional constitutional complaints ENT: Reports dizziness Gastrointestinal: Gastrointestinal: Reports no additional gastrointestinal complaints Neurologic: Reports dizziness [facility] Past Medical History [facility] Narrative: HYPERCHOLESTEROLEMIA VERTIGO Social History Social History Smoked in Last 30 Days: No Advance Directives: No Advance Directives Information Provided: No Patient : No Physical Exam 2 Vital Signs: Vital Signs: Last Vital Signs Temp 97.8 F 04/16/23 10:13 Pulse 90 04/16/23 10:13 Resp 18 04/16/23 10:13 BP 142/56 H 04/16/23 10:13 Pulse Ox 99 04/16/23 10:13 O2 Del Method Room Air 04/16/23 10:13 BMI result Body Mass Index 28.6 Const: General: cooperative and alert Nutritional Appearance: well nourished Orientation/consciousness: patient oriented x3 Limitations: no limitations HEENT: Head: Yes normal to inspection General nose exam: Normal external nose present Face and sinus: Yes normal facial exam Mouth: Normal oral and palatal mucosa present Throat: Yes posterior oropharynx normal Neck: Neck: Yes normal visual inspection and Yes full ROM Chest: Chest palpation & inspection: normal inspection of the chest Resp: Effort & Inspection: normal respiratory effort Auscultation: clear to auscultation bilaterally Cardio: Jugular venous distension: no JVD Rate: regular rate Rhythm: r egular rhythm GI: Inspection: Yes normal to inspection Palpation (GI): Soft to palpation, not firm and nontender Auscultation: normal bowel sounds Skin: General skin exam: no rashes or lesions noted Rashes: no rashes Neuro: General: patient oriented x3 and CN's II-XI intact bilaterally C ranial nerves: Yes CN's II-XII intact bilaterally Cognition (Neuro): normal cognition Motor exam (neuro): 5/5 motor strength present throughout Course Reevaluation(s) Reevaluation #1: Pt is completely asymptomatic,no dizziness no WINTER,ct no acute finding ,stable 1.5 mm infundibulum vs aneurysm this is likely incidental finding . At this time because verónica feels fine will d/c home she will follow up with Primary Care Doctor Time: 13:34 Reevaluation #2: At this time the patient is fully ambulatory completely asymptomatic will plan discharge Time: 14:24 Medications Administered Discontinued Medications Generic Name Dose Route Start Last Admin Trade Name Freq PRN Reason Stop Dose Admin Diphenhydramine HCl 25 mg 04/16/23 10:55 04/16/23 11:03 Diphenhydramine Hcl 50 Mg/Ml Vial IVPUSH 04/16/23 10:56 25 mg ONCE ONE Administration Sodium Chloride 1,000 mls @ 999 mls/hr 04/16/23 11:00 04/16/23 13:11 Ns IVCONT 04/16/23 12:00 Infused .Q1H1M DELAI Infusion Iohexol 70 ml 04/16/23 12:49 04/16/23 12:50 Iohexol 350 Mg/Ml 100 Ml Infus..Btl IV 04/16/23 12:50 70 ml ONCE ONE Administration Ketorolac Tromethamine 15 mg 04/16/23 11:26 04/16/23 11:31 Ketorolac Tromethamine 15 Mg/Ml Vial IVPUSH 04/16/23 11:27 15 mg ONCE ONE Administration Metoclopramide HCl 10 mg 04/16/23 10:56 04/16/23 11:03 Metoclopramide Hcl 10 Mg/2 Ml Vial IVPUSH 04/16/23 10:57 10 mg ONCE ONE Administration Ondansetron HCl 4 mg 04/16/23 11:26 04/16/23 11:31 Ondansetron Hcl 4 Mg/2 Ml Vial IVPUSH 04/16/23 11:27 4 mg ONCE ONE Administration Medical Decision Making Medical Decision Making MDM Narrative: PATIENT PRESENTED WITH NAUSEA VOMITING DIZZINESS AND HEADACHE WILL OBTAIN IMAGING OF THE BRAIN, WILL ADMINISTER ANTIEMETIC ANALGESIA Differential Diagnosis Differential Diagnoses: The differential diagnosis associated with the presentation includes VERTIGO/SUBARACHNOID BLEED/SUBDURAL HEMATOMA/VIRAL SYNDROME Admission/Observation Consideration of admission/observation: Escalation of care including admission/observation considered Lab Data MDM Lab Attestation statement: I reviewed the patient's lab results. 04/16/23 11:12 04/16/23 11:11 Labs: Lab Results 04/16/23 04/16/23 Range/Units 11:11 11:12 WBC 11.3 H (4.8-10.8) X10*3/uL RBC 5.07 (4.20-5.50) X10*6/uL Hgb 14.1 (12.0-16.0) g/dl Hct 39.9 (37.0-47.0) % MCV 78.7 L (80.0-98.0) fL MCH 27.8 (27.0-33.0) pg MCHC 35.3 H (31.0-35.0) g/dl RDW 13.1 (11.0-16.0) % Plt Count 219 (160-400) X10*3/uL MPV 10.4 (9.4-12.3) fL Immature Gran % (Auto) 0.3 (0.0-0.4) % Neut % (Auto) 77.9 H (45-73) % Lymph % (Auto) 15.3 L (20-40) % [place] % (Auto) 5.3 (2-11) % Eos % (Auto) 0.7 (0-4) % Baso % (Auto) 0.5 (0-2) % Lymph # (Auto) 1.7 (1.2-4.9) X10*3/uL [place] # (Auto) 0.6 (0.1-1.2) X10*3/uL Eos # (Auto) 0.1 (0.0-0.4) X10*3/uL Baso # (Auto) 0.1 (0.0-0.2) X10*3/uL Abs Immat Gran (auto) 0.03 (0.00-0.03) X10*3/uL Absolute Neuts (auto) 8.8 H (2.0-8.3) x10*3/uL Absolute Nucleated RBC 0.000 (0.0-0.012) X10*3/uL Nucleated RBC % (auto) 0.0 (0.0-0.2) /100WBC Sodium 138 (135-145) mmol/L Potassium 3.8 (3.3-5.1) mmol/L Chloride 103 (96-108) mmol/L Carbon Dioxide 26 (22-29) mmol/L Anion Gap 13 (12-20) BUN 13 (9-16) mg/dL Creatinine 0.92 (0.5-1.4) mg/dL Estim Creat Clear Calc 60.8 Estimated GFR > 60 Random Glucose 113 (60-115) mg/dL Calcium 9.2 (8.4-10.2) mg/dL Total Bilirubin 0.4 (0.0-1.0) mg/dL AST 19 (5-31) U/L ALT 16 (0-31) U/L Alkaline Phosphatase 70 (39-117) U/L Total Protein 8.3 H (6.5-8.0) g/dL Albumin 4.5 (3.5-5.0) g/dL Independent Interpretation I performed an independent interpretation of an: CT Scan Independent Historian Clinical information obtained from an independent historian. History obtained from or confirmed by: Other (DAUGHTER) Discharge Plan Discharge Clinical Impression: Dizziness Patient Disposition: Home, Self-Care Instructions: Dizziness (ED) Additional Instructions: She should follow-up tomorrow with your primary care physician return to the emergency room if you worse any concern Prescriptions: New ondansetron HCl 4 mg tablet 4 mg PO TID PRN (Reason: nausea and vomiting) 1 Days Qty: 21 0RF meclizine 25 mg tablet 25 mg PO TID PRN (Reason: dizziness) Qty: 15 0RF No Action clindamycin HCl 300 mg capsule 450 mg PO TID 10 Days Qty: 45 0RF Paxlovid 300 mg (150 mg x 2)-100 mg tablet See Rx Instructions .ROUTE .COMPLEX Qty: 30 0RF Rx Instructions: take TWO 150 mg tablets of nirmatrelvir with ONE 100 mg tablet of ritonavir twice daily for 5 days meclizine 50 mg tablet 50 mg PO BID PRN (Reason: dizziness) Qty: 20 0RF ondansetron HCl 4 mg tablet 4 mg PO Q6H PRN (Reason: nausea and vomiting) Qty: 14 0RF ibuprofen 600 mg tablet 600 mg PO QID PRN (Reason: fever or pain) Qty: 20 0RF ondansetron 4 mg tablet,disintegrating 4 mg PO Q8H PRN (Reason: nausea and vomiting) Qty: 20 0RF albuterol sulfate 90 mcg/actuation aerosol powdr breath activated 2 inh inhalation Q4H PRN (Reason: shortness of breath or wheezing) Qty: 1 0RF Rx Instructions: May dispense medication equivalent accepted by patient's insurance benzonatate 100 mg capsule 100 mg PO TID PRN (Reason: cough) Qty: 14 0RF cyclobenzaprine 10 mg tablet 10 mg PO Q8H Qty: 20 0RF tramadol 50 mg tablet 50 mg PO Q8H PRN (Reason: pain) Qty: 9 0RF cefuroxime axetil 250 mg tablet 250 mg PO BID 7 Days Qty: 14 0RF Referrals: Akil Zee NP [Primary Care Provider] - 1 day Interventions: ED Discharge Assessment Last Done: 04/16/23 14:47 Discharge Date/Time: 04/16/23 14:47
[2023-04-16] MEDS: 0.9 % Sodium Chloride 1,000 ML 999 ML IVCONT (11:03)
[2023-04-16] MEDS: Metoclopramide HCl 10 MG/2 ML VIAL IVPUSH (11:03)
[2023-04-16] MEDS: diphenhydrAMINE HCL 50 MG/ML VIAL 25 MG IVPUSH (11:03)
[2023-04-16 11:17] LABS: MANUAL DIFF FLAG NO
[2023-04-16 11:19] LABS: Basophils Absolute Auto 0.1 X10*3/uL (0.0-0.2); Basophils Percent Auto 0.5 % (0-2); Eosinophils Absolute Auto 0.1 X10*3/uL (0.0-0.4); Eosinophils Percent Auto 0.7 % (0-4); Hematocrit 39.9 % (37.0-47.0); Hemoglobin 14.1 g/dl (12.0-16.0); Imm Gran Abs Auto 0.03 X10*3/uL (0.00-0.03); Imm Gran Pct Auto 0.3 % (0.0-0.4); Lymphocytes Absolute Auto 1.7 X10*3/uL (1.2-4.9); Lymphocytes Percent Auto 15.3 % (20-40); Mean Corpuscular HGB Conc 35.3 g/dl (31.0-35.0); Mean Corpuscular Hemoglobin 27.8 pg (27.0-33.0); Mean Corpuscular Volume 78.7 fL (80.0-98.0); Mean Platelet Volume 10.4 fL (9.4-12.3); Monocytes Absolute Auto 0.6 X10*3/uL (0.1-1.2); Monocytes Percent Auto 5.3 % (2-11); Neutrophils Absolute Auto 8.8 x10*3/uL (2.0-8.3); Neutrophils Percent Auto 77.9 % (45-73); Platelet Count 219 X10*3/uL (160-400); Red Blood Count 5.07 X10*6/uL (4.20-5.50); Red Cell Distribution Width 13.1 % (11.0-16.0); White Blood Count 11.3 X10*3/uL (4.8-10.8)
[2023-04-16] MEDS: Ketorolac Tromethamine 15 MG/ML VIAL IVPUSH (11:31)
[2023-04-16] MEDS: ondansetron HCL 4 MG/2 ML VIAL IVPUSH (11:31)
[2023-04-16 11:33] LABS: Alanine Aminotransferase 16 U/L (0-31); Albumin Level 4.5 g/dL (3.5-5.0); Alkaline Phosphatase 70 U/L (39-117); Anion Gap 13 (12-20); Aspartate Amino Transferase 19 U/L (5-31); Bilirubin Total 0.4 mg/dL (0.0-1.0); Blood Urea Nitrogen 13 mg/dL (9-16); Calcium 9.2 mg/dL (8.4-10.2); Carbon Dioxide 26 mmol/L (22-29); Chloride 103 mmol/L (96-108); Creatinine Clr Calc Pharmacy 60.8; Estimated Glomerular Filt Rate > 60; Glucose Random 113 mg/dL (60-115); Potassium 3.8 mmol/L (3.3-5.1); Sodium 138 mmol/L (135-145); Total Protein 8.3 g/dL (6.5-8.0)
[2023-04-16] MEDS: iohexoL 350 MG/ML 100 ML INFUS..BTL 70 ML IV (12:50)
--- NOTE | 2023-04-16 13:13 | PC.NURSE ---
PT IV NOTED TO BE INFILTRATED AFTER CT. D/C'D AND HOT PACK APPLIED
== END 2023-04-16 14:47 | disposition home or self-care (01) ==
PROVIDERS: Emergency Provider Emergency Medicine; PCP Nurse Practitioner Community Health
DX: R42 Dizziness and giddiness (principal); R11.2 Nausea with vomiting, unspecified; R03.0 Elevated blood-pressure reading, without diagnosis of hypertension; R06.02 Shortness of breath; M54.2 Cervicalgia; Z79.899 Other long term (current) drug therapy
CPT/HCPCS: 36415; 70496; 70498; 80053; 85025; 96361; 96374; 96375; 99284; J1200; J1885; J2405; J2765; Q9967

== ENCOUNTER 2023-06-07 10:00 | Outpatient (REF) | payer MEDICAID, SELFPAY | END 2023-06-07 10:01 | disposition home or self-care (01) | LOC: HO.MAMMO 10:00 | DX: Z13.89 Encounter for screening for other disorder (principal) ==

== ENCOUNTER → 2023-06-11 10:30 | Outpatient (BNV) | payer MEDICAID, SELFPAY | PROVIDERS: Visit Provider Radiology Diagnostic Radiology | DX: Z12.31 Encounter for screening mammogram for malignant neoplasm of breast (principal) | CPT/HCPCS: 77063; 77067 ==

== ENCOUNTER 2023-06-11 10:31 | Outpatient (REF) | payer MEDICAID, SELFPAY | END 2023-06-11 10:32 | disposition home or self-care (01) | LOC: HO.MAMMO 10:31 | PROVIDERS: PCP Nurse Practitioner Community Health; Visit Provider Nurse Practitioner Community Health | DX: Z12.31 Encounter for screening mammogram for malignant neoplasm of breast (principal) | CPT/HCPCS: 77063; 77067 ==

== ENCOUNTER 2024-01-07 06:20 | Emergency (ER) | payer MEDICAID, SELFPAY ==
[2024-01-07 06:22] VITALS: BP 159/73; PULSE 98; RESP 18; TEMP 36.9; O2SAT 99; BMI 23.3
[2024-01-07 06:40] LABS: MANUAL DIFF FLAG NO
[2024-01-07 06:42] LABS: Basophils Percent Auto 0.3 % (0-2); Hematocrit 38.1 % (37.0-47.0); Hemoglobin 13.9 g/dl (12.0-16.0); Imm Gran Abs Auto 0.02 X10*3/uL (0.00-0.03); Imm Gran Pct Auto 0.2 % (0.0-0.4); Lymphocytes Absolute Auto 0.8 X10*3/uL (1.2-4.9); Lymphocytes Percent Auto 8.6 % (20-40); Mean Corpuscular HGB Conc 36.5 g/dl (31.0-35.0); Mean Corpuscular Hemoglobin 28.7 pg (27.0-33.0); Mean Corpuscular Volume 78.6 fL (80.0-98.0); Mean Platelet Volume 10.1 fL (9.4-12.3); Monocytes Absolute Auto 0.6 X10*3/uL (0.1-1.2); Monocytes Percent Auto 7.3 % (2-11); Neutrophils Absolute Auto 7.3 x10*3/uL (2.0-8.3); Neutrophils Percent Auto 83.6 % (45-73); Platelet Count 186 X10*3/uL (160-400); Red Blood Count 4.85 X10*6/uL (4.20-5.50); Red Cell Distribution Width 13.2 % (11.0-16.0); White Blood Count 8.7 X10*3/uL (4.8-10.8)
[2024-01-07 06:46] LABS: Appearance Urine Clear; Color Urine Yellow; Glucose Urine UA Negative (Negative); Leukocyte Esterase Urine Moderate (2+) (Negative); Nitrite Urine Negative (Negative); PH 7.5 (5.0-9.0); Specific Gravity - Urine 1.025 (1.005-1.025); UMIC TRIGGER UACC YES; Urine Blood Trace (Negative); Urine Ketones Negative (Negative); Urine Protein 30 (1+) mg/dL (Neg-Trace)
[2024-01-07 06:52] LABS: Bacteria Urine Trace (None Seen); Hyaline Casts Urine 0-2 /LPF (0-2); UACC Culture Trigger YES
[2024-01-07 06:57] LABS: Alanine Aminotransferase 18 U/L (0-31); Albumin Level 4.5 g/dL (3.5-5.0); Alkaline Phosphatase 61 U/L (39-117); Anion Gap 13 (12-20); Aspartate Amino Transferase 28 U/L (5-31); Bilirubin Direct 0.2 mg/dL (0.0-0.5); Bilirubin Total 0.6 mg/dL (0.0-1.0); Blood Urea Nitrogen 12 mg/dL (9-16); Calcium 9.2 mg/dL (8.4-10.2); Carbon Dioxide 23 mmol/L (22-29); Chloride 102 mmol/L (96-108); Creatinine Clr Calc Pharmacy 62.7; Estimated Glomerular Filt Rate > 60; Glucose Random 109 mg/dL (60-115); Lipase 24 U/L (8-78); Potassium 3.9 mmol/L (3.3-5.1); Sodium 134 mmol/L (135-145); Total Protein 8.3 g/dL (6.5-8.0)
== END 2024-01-07 14:28 | disposition left against medical advice (07) ==
LOC: HO.ED 14:08
PROVIDERS: Emergency Provider Emergency Medicine
DX: R11.0 Nausea (principal); R51.9 Headache, unspecified; Z79.899 Other long term (current) drug therapy
CPT/HCPCS: 36415; 80048; 80076; 81001; 83690; 85025; 87086; 99281; 99282

== ENCOUNTER 2024-12-17 15:25 | Emergency (ER) | payer MEDICAID, SELFPAY ==
--- NOTE | ~2024-12-17 | US_ITS ---
EXAMINATION: US PELVIS CLINICAL INFORMATION: Abnormal uterine bleeding COMPARISON: Previous pelvic ultrasound October 2017 TECHNIQUE: Ultrasound of the pelvis is performed using both transabdominal and transvaginal transducers along with Doppler. Transvaginal imaging is performed due to inadequate visualization transabdominally. FINDINGS: Uterus: The uterus is anteverted and measures 7.2 x 3.1 x 3.7 cm. The double wall endometrial thickness is 6 mm. This is minimally thickened for a postmenopausal patient and is similar in thickness to October 2017. Small amount of fluid seen in the endometrial cavity. This is new compared to October 2017 exam. The uterus is smooth in contour and has normal myometrial echogenicity. 1.4 x 1.2 x 1.3 cm left intramural upper uterine body fibroid. Nabothian cysts in the cervix. Adnexa: The ovaries are not identified. No adnexal mass. There is no pelvic ascites or fluid collection. US/US pelvic and transvaginal IMPRESSION: Slightly thickened endometrium measuring 6 mm and small amount of fluid in the endometrial cavity. Probable small uterine fibroid. Ovaries not seen. Electronically signed by: Kimberly Zuñiga MD 12/17/2024 05:04 PM EDT
--- OUTSIDE RECORDS SUMMARY | 2024-12-17 14:00 | XMS_ITS | Encounter Summary ---
Author Organization [employer] Address [address] [facility] [address] [place] [address] Care Team Providers Care Backup Engineer Name Role Phone Akil Zee NP Primary Care Provider + [phone] Reason for Visit * Reason Comments Same Day Appt Patient present in o ffice to discuss bleeding since yesterday with clots, extreme abdominal pain. Patient has not had period for over 10yrs. Encounter Details Date Type Department Care Team (Late Contact Info) Description 12/17/2024 2:00 PM EDT Office Visit V[facility]ctor [facility] [address] [place] [address] [facility] [address] [place] [address] Acute abdominal pain (Primary Dx); Abdominal distention; Uterine enlargement; Post-menopausal bleeding Social History Tobacco Use Types Packs/Day Years Used Date Smoking Tobacco: Never Smokeless Tobacco: Never Alcohol Use Standard Drinks/Week Comments Never 0 (1 standard drink = 0.6 oz pur e alcohol) Overall Financial Resource Strain (CARDIA) Answe r Date Recorded How hard is it for you to pa y for the very basics like food, housing, medical care, and heating? Not hard at all 04/05/2022 Alcohol Answer Date Recorded Q1: How often do you have a drink containing alc ohol? 1 04/05/2022 Q2: How many drinks containi ng alcohol do you have on a typical day when you are drinking? 0 04/05/2022 Q3: How often do you have six or more drinks on one occasion? 1 04/05/2022 Depression Answer Date Recorded Patient Health Questionnaire-9 Score 18 04/05/2022 Housing Stability Answer Date Recorded What is your housing situation today? I have leigh yañez 12/17/[address] you li ve. Do you have problems with any of the following? None of the above 12/17/2023 Food Insecurity Answer Date Recorded Within the past 12 months, y ou worried that your food would run out before you got money to buy more: Never True 12/17/2023 Within the past 12 months,th e food you bought just didn't last and you didn't have enough money to get more: Never True Transportation Answer Date Recorded In the past 12 months, has l ack of transportation kept you from medical appts, meetings, work or from getting things needed for daily living? No 12/17/2023 Intimate Partner Violence Answer Date R ecorded Within the last year, have y ou been afraid of your partner or ex-partner? 2 04/05/2022 Within the last year, have y ou been humiliated or emotionally abused in other ways by your partner or ex-partner? 2 Within the last year, have y ou been kicked, hit, slapped, or otherwise physically hurt by your partner or ex-partner? 2 04/05/2022 Within the last year, have y ou been raped or forced to have any kind of sexual activity by your partner or ex-partner? 2 04/05/2022 Utilities Answer Date Recorded In the past 12 months, has t he electric, gas, oil or water company threatened to shut off services in your home? No 12/17/2023 Depression Answer Date Recorded Patient Health Questionnaire-2 Score 0 12/17/2023 Internet Access Answer Date Recorded Internet Access Q1 Yes 12/17/2023 Internet Access Q2 Not on file 12/17/2023 Comments Unknown Sex and Gender Information Value Date Recorded Sex Assigned at Female 12/26/2021 10:14 AM EDT Legal Sex Female 10:14 AM EDT Gender Identity Female 02/23/2022 7:15 AM EST Sexual Orientation Choose not to disclose 2022 10:22 AM EST documented as of this encounter Last Filed Vital Signs Vital Sign Reading Time Taken Comments Blood Pressure 172/82 12/17/2024 2:08 PM EDT Pulse 68 12/17/2024 2:08 PM EDT Temperature 36.9 C (98.4 F) 12/17/2024 2:08 PM EDT Respiratory Rate - - Oxygen Saturation - - Inhaled Oxygen Concentration - - Weight 63.5 kg (140 lb) 12/17/2024 2:08 PM EDT Height 157.5 cm (5' 2 ) 12/17/2024 2:08 PM EDT Body Mass Index 25.61 12/17/2024 2:08 PM EDT documented in this encounter Patient Instructions * Patient Instructions* JOSUE Sethi - 12/17/2024 2:00 PM EDT We are recommending you go to the Emergency Department for new acute abdominal pain, tenderness, bloating and post menopausal bleeding. documented in this encounter Progress Notes * JOSUE Sethi - 12/17/2024 2:00 PM EDT Margaret Aquino 1960 [phone] Chief complaint: Same Day Appt (Patient present in office to discuss bleeding since yesterday with clots, extreme abdominal pain. Patient has not had period for over 10yrs. ) HPI: Margaret Aquino, age 64, female, reports vaginal bleeding that started yesterday morning, with small amounts of blood. She notes mild vaginal itching. Describes abdominal pain starting in the upper abdomen and now traveling downward. Denies fever, nausea, vomiting, diarrhea, dysuria, vaginal discharge. Last bowel movement was yesterday, normal. States history of endometrial ablation in her 40s. History of left ovary removal per chart, she is unsure if just ovary or fallopian tube was removed. Last pap 2020, normal. She is post menopausal. Current Outpatient Medications on File Prior to Visit Medication Sig Dispense Refill acetaminophen (Tylenol 8 Hour) 650 MG ER tablet Take 1 tablet (650 mg) by mouth every 8 (eight) hours if needed for mild pain. Do not crush, chew, or split. 60 tablet 0 albuterol 108 (90 Base) MCG/ACT inhaler Inhale 2 puffs every 6 (six) hours if needed for wheezing. 18 g 1 EPINEPHrine (Epipen) 0.3 MG/0.3ML injection syringe as directed Injection prn severe allergy for 180 days famotidine (Pepcid) 20 MG tablet TAKE 1 TABLET (20 MG) BY MOUTH IF NEEDED IN THE MORNING AND AT BEDTIME FOR HEARTBURN. 180 tablet 0 ondansetron ODT (Zofran-ODT) 4 MG disintegrating tablet Take 1 tablet by mouth every 8 (eight) hours if needed. rosuvastatin (Crestor) 5 MG tablet Take 1 tablet (5 mg) by mouth Once per day. 90 tablet 3 traMADol (Ultram) 50 MG tablet Take 1 tablet (50 mg) by mouth every 8 (eight) hours if needed for moderate pain. 15 tablet 0 loratadine (Claritin) 10 MG tablet Take 1 tablet (10 mg) by mouth if needed each day for allergies.(Patient not taking: Reported on 12/17/2024) 90 tablet 3 polyethylene glycol, PEG, 3350 (Glycolax) 17 GM/SCOOP powder MIX AND DRINK DIRECTED ONCE A DAY NEEDED FOR 30 DAYS (Patient not taking: Reported on 12/17/2024) 510 g 0 [DISCONTINUED] famotidine (Pepcid) 20 MG tablet TAKE 1 TABLET (20 MG) BY MOUTH IF NEEDED IN THE MORNING AND AT BEDTIME FOR HEARTBURN. 180 tablet 0 No current facility-administered medications on file prior to visit. Allergies Allergen Reactions Aciphex [Rabeprazole] Other reaction(s): stomach upset Atorvastatin Other reaction(s): Unknown Bees [Honey Bee Venom] Other reaction(s): itchy @ site only @ this time Penicillin G Other reaction(s): Unknown Pravastatin Unknown Simvastatin Other reaction(s): Unknown Zetia [Ezetimibe] Other reaction(s): constipation, foul taste in mouth PAST MEDICAL, SURGICAL, SOCIAL AND FAMILY HISTORY: Reviewed and updated MEDICATIONS AND ALLERGIES: Reviewed and updated Patient Active Problem List Diagnosis Osteoarthritis of knee Arthritis of knee Asthma in adult Chronic constipation Gastroesophageal reflux disease without esophagitis History of cholecystectomy Glaucoma suspect of both eyes Hyperlipidemia Illiterate Migraine with aura Multinodular goiter Non-seasonal allergic rhinitis Osteoarthritis of spine with radiculopathy, cervical region Steatohepatitis Varicose veins of lower extremity Combined forms of age-related cataract of both eyes Presbyopia of both eyes PTSD (post-traumatic stress disorder) Pain in left shoulder Allergic urticaria Review of Symptoms: Review of Systems Constitutional: Negative for chills and fever. Respiratory: Negative for cough, shortness of breath and wheezing. Cardiovascular: Negative for chest pain and palpitations. Gastrointestinal: Positive for abdominal pain. Negative for blood in stool, constipation, diarrhea,nausea and vomiting. Genitourinary: Positive for vaginal bleeding. Negative for dysuria and vaginal discharge. PHYSICAL EXAMINATION: BP (!) 172/82 (BP Location: Right arm, Patient Position: Sitting, BP Cuff Size: Adult) Pulse 68 Temp 98.4 ??F (36.9 ??C) (Temporal) Ht 5' 2 (1.575 m) Wt 140 lb (63.5 kg) BMI 25.61 kg/m?? Constitutional: Alert, in no acute distress, Normal appearance. Pulmonary: Pulmonary effort is normal Abdomen: Distended. Diffuse tenderness, worse suprapubic area. Uterus enlarged and firm. No rebound tenderness. Mild guarding during exam Neurological: No focal deficit present, Alert, Speech is normal, Gait is intact. RESULTS: Results for orders placed or performed in visit on 12/17/24 POCT urinalysis dipstick manually resulted (CPT 49854) Collection Time: 12/17/24 2:34 PM Result Value Ref Range Color, UA Yellow Clarity, UA Clear Glucose, UA Negative Bilirubin, UA Negative Ketones, UA Negative Spec Grav, UA 1.020 Blood, UA 2+ (A) Negative, None Detected pH, UA 6.0 Protein, UA Moderate Urobilinogen, UA 4.0 Leukocytes, UA Negative Negative, Rare, Trace Nitrite, UA Negative Negative, None Detected ASSESSMENT AND PLAN: Acute abdominal pain: - 24 hours of acute abdominal pain and vaginal bleeding - Urine dip negative for infection - Concern for acute process with abrupt onset of pain, distended and tenderness on exam - Recommended she go to the ED now for further evaluation and managment. She agrees. Her daughter will drive her to [facility] ED now. Nursing called ED to give report. - Nursing to follow up with patient via phone tomorrow Uterine enlargement: - Enlarged on physical exam today - To ED for evaluation of acute pain today - Will need ELECTRIFICATION ADVISER referral after ED evaluation Post-menopausal bleeding: - Abnormal post-menopausal bleeding requires further investigation. - Will need ELECTRIFICATION ADVISER referral after ED evaluation Orders Placed This Encounter Procedures POCT urinalysis dipstick manually resulted (CPT 68306) Follow up for to be determined. Parris Mendez, MSN, SAP ARIBA CONSULTANT-C [facility] [address] [facility], [place] [address] This note was drafted using [employer] (AI) technology. The patient/patient's guardian has been informed and has consented to the use of this technology: Yes documented in this encounter Plan of Treatment Upcoming Encounters Date Type Department Care Team (Late st Contact Info) Description 12/25/2024 2:00 PM EDT Office Visit Víctor [facility] [address] [place], [place] [phone] [facility] [address] [place], [place] [phone] documented as of this encounter Procedures Procedure Name Priority Date/Time Associated Diagnosis Comments POCT URINALYSIS DIPSTICK Routine 12/17/2024 2:34 PM EDT Acute abdominal pain documented in this encounter Results * (ABNORMAL) POCT urinalysis dipstick manually resulted (CPT 16500) (12/17/2024 2:34 PM EDT) Color, UA Yellow Clarity, UA Clear Glucose, UA Negative Bilirubin, UA Negative Ketones, UA Negative Spec Grav, UA 1.020 Blood, UA 2+(A) Negative, None Detected pH, UA 6.0 Protein, UA Moderate Urobilinogen, UA 4.0 Leukocytes, UA Negative Negative, Rare, Trace Nitrite, UA Negative Negative, None Detected Urine (Urine, Random) 12/17/2024 2:34 PM EDT Parris SALAS POINT OF CARE TEST ENTER/ EDIT ORDERABLES Final Result documented in this encounter Visit Diagnoses Diagnosis Acute abdominal pain- Primary Abdominal pain, unspecified site Abdominal distention Flatulence, eructation, and gas pain Uterine enlargement Hypertrophy of uterus Post-menopausal bleeding Postmenopausal bleeding documented in this encounter Additional Health Concerns Assessment Noted Time PHQ-9 Depression Total Score: 18 023 12:29 PM EST documented as of this encounter Care Teams Backup Engineer Relationship Specialty Start Date End Date Akil Zee NP [address] [place] [address] PCP - General Internal Medicine 02/24/22 documented as of this encounter
[2024-12-17 15:48] VITALS: BP 185/79; PULSE 88; RESP 18; TEMP 36.8; O2SAT 99; BMI 24.9
--- NOTE | 2024-12-17 15:48 | ED.GENADULT ---
HPI - General Adult General Chief complaint: Vaginal Bleeding Stated complaint: abd pain, vaginal bleeding Time Seen by Provider: 12/17/24 20:51 Source: patient Mode of arrival: ambulatory Limitations: no limitations History of Present Illness ED Provider: Dr. Spencer [facility] narrative: 64-year-old female history of asthma, hyperlipidemia presented hospital today for abnormal vaginal bleeding. Patient has not had vaginal bleeding since menopause. However past couple of days she has has been having some vaginal spotting and some clot passing. This is abnormal for her. It is complaining of some abdominal bloating as well. And itchiness in the vaginal area and some increased urinary frequency. She told her doctor about this and was instructed come to the ER for further evaluation. No other complaints at this time. Related Data Previous Rx's ?Medication ?Instructions ?Recorded clindamycin HCl 300 mg capsule 450 mg (1.5 x 300 mg) PO TID 10 11/19/20 days #45 caps ibuprofen 600 mg tablet 600 mg PO QID PRN fever or pain 09/14/21 #20 tabs meclizine 50 mg tablet 50 mg PO BID PRN dizziness #20 tabs 09/14/21 nirmatrelvir 300 mg (150 mg See Rx Instructions PO .COMPLEX 09/14/21 x2)-ritonavir 100 mg tablet,dose #30 tabs pack (Paxlovid) ondansetron HCl 4 mg tablet 4 mg PO Q6H PRN nausea and 09/14/21 vomiting #14 tabs albuterol sulfate 90 mcg/actuation 2 inh inhalation Q4H PRN shortness 02/19/22 breath activated powder inhaler of breath or wheezing #1 ea benzonatate 100 mg capsule 100 mg PO TID PRN cough #14 caps 02/19/22 ondansetron 4 mg disintegrating 4 mg PO Q8H PRN nausea and 02/19/22 tablet vomiting #20 tabs cefuroxime axetil 250 mg tablet 250 mg PO BID 7 days #14 tabs 04/25/22 cyclobenzaprine 10 mg tablet 10 mg PO Q8H #20 tabs 04/25/22 tramadol 50 mg tablet 50 mg PO Q8H PRN pain #9 tabs 04/25/22 meclizine 25 mg tablet 25 mg PO TID PRN dizziness #15 tabs 04/16/23 ondansetron HCl 4 mg tablet 4 mg PO TID PRN nausea and 04/16/23 vomiting 24 hours #21 tabs ciprofloxacin HCl 500 mg tablet 500 mg PO Q12H 7 days #14 tabs 12/17/24 polyethylene glycol 3350 17 17 g PO BID 4 days #136 grams 12/17/24 gram/dose oral powder (Miralax) sennosides 8.6 mg capsule (senna) 8.6 mg PO DAILY #14 caps 12/17/24 tranexamic acid 650 mg tablet 650 mg PO Q8H 3 days #9 tabs 12/17/24 Allergies Allergy/AdvReac Type Severity Reaction Status Date / Time Penicillins Allergy Severe ANAPHYLAXIS Verified 12/17/24 15:51 AND BLEEDING penicillin V Allergy Unknown Unknown Verified 12/17/24 15:51 Review of Systems Review of Systems: Pertinent review of systems as mentioned in HPI. All other system otherwise negative. [facility] Past Medical History [facility] Narrative: Medical history as mentioned in HPI Social History Social History Advance Directives: No Advance Directives Information Provided: Yes Physical Exam ED Exam Exam: General: Pleasant, no distress, interacting appropriately Head: Normacephalic, atraumatic ENT: oral mucosa moist, neck supple, no tracheal deviation Gastrointestinal: Slight distention in the abdomen, nontender non guarding Neurological: Awake and alert, no facial droop noted Skin: Warm and dry Psychiatric: Appropriate mood and thoughts Vital Signs: Vital Signs - 24 hr 12/17/24 15:48 12/17/24 20:33 12/17/24 21:09 Temperature 98.2 F 98.4 F 98.4 F Pulse Rate 88 79 79 Respiratory Rate 18 16 16 Blood Pressure 185/79 H 174/71 H 174/71 H Pulse Oximetry 99 99 99 Oxygen Delivery Method Room Air Room Air Room Air BMI result Body Mass Index 24.9 Course Course Course Narrative: This is a Rapid Medical Examination (RME) performed by Alina Michel PA-C in triage. Full HPI, ROS, assessment and treatment plan per primary provider in the Main ED. Hx: 64 yo F here from PCP office today for eval of vaginal bleeding x24 hours. reports spotting w/ clots. wearing a panty liner - has not bled through. still has a uterus. assoc abd pain - cannot describe what it feels like. PCP sent her here for CT scan. PE: abd soft, ND, diffusely ttp. no rebound/guarding. Plan: labs, UA, US Medical Decision Making Medical Decision Making MDM Narrative: This is a 64-year-old female presented hospital today for abnormal vaginal bleeding. Patient has slight leukocytosis on lab work on review. 11.1. Hemoglobin appropriate at 14.5. No sign of tachycardic hypotension. Do not think patient has hemorrhagic shock. Patient's chemistries unremarkable. Patient's UA shows moderate blood trace leuk esterase. Likely secondary to her vaginal bleeding. Ultrasound did show signs of fibroids and borderline thickened endometrium. Discussed these findings with the patient and the patient's daughter. Recommend follow up with BATTERY LOADER doctor. Patient will be discharged at this time. We will plan to discharge her with some Keflex, to treat for a possible UTI. We will also plan to discharge her with some short course of TXA for her vaginal bleeding. We will also plan to discharge her with some bowel regimen including senna and MiraLax for constipation. I suspect this is likely causing her bloating abdomen. Abdomen was nonsurgical on exam. However patient is stable. No sign of hemorrhagic shock. No sign of significant anemia requiring transfusion. Differential Diagnosis Differential Diagnoses: The differential diagnosis associated with the presentation includes Vaginal bleed, fibroids, hemorrhagic shock, anemia Lab Data MDM Lab Attestation statement: I reviewed the patient's lab results. 12/17/24 15:58 12/17/24 15:58 Labs: Lab Results 12/17/24 12/17/24 Range/Units 15:58 16:02 WBC 11.1 H (4.8-10.8) X10*3/uL RBC 5.26 (4.20-5.50) X10*6/uL Hgb 14.5 (12.0-16.0) g/dl Hct 41.4 (37.0-47.0) % MCV 78.7 L (80.0-98.0) fL MCH 27.6 (27.0-33.0) pg MCHC 35.0 (31.0-35.0) g/dl RDW 13.2 (11.0-16.0) % Plt Count 269 D (160-400) X10*3/uL MPV 10.1 (9.4-12.3) fL Immature Gran % (Auto) 1.1 H (0.0-0.4) % Neut % (Auto) 72.7 (45-73) % Lymph % (Auto) 19.4 L (20-40) % Parmer % (Auto) 5.5 (2-11) % Eos % (Auto) 0.7 (0-4) % Baso % (Auto) 0.6 (0-2) % Lymph # (Auto) 2.2 (1.2-4.9) X10*3/uL Parmer # (Auto) 0.6 (0.1-1.2) X10*3/uL Eos # (Auto) 0.1 (0.0-0.4) X10*3/uL Baso # (Auto) 0.1 (0.0-0.2) X10*3/uL Abs Immat Gran (auto) 0.12 H (0.00-0.03) X10*3/uL Absolute Neuts (auto) 8.1 (2.0-8.3) x10*3/uL Absolute Nucleated RBC 0.000 (0.0-0.012) X10*3/uL Nucleated RBC % (auto) 0.0 (0.0-0.2) /100WBC Sodium 138 (135-145) mmol/L Potassium 4.5 (3.3-5.1) mmol/L Chloride 102 (96-108) mmol/L Carbon Dioxide 28 (22-29) mmol/L Anion Gap 13 (12-20) BUN 16 (9-16) mg/dL Creatinine 0.83 (0.5-1.4) mg/dL Estim Creat Clear Calc 60.0 Estimated GFR > 60 Random Glucose 89 (60-115) mg/dL Calcium 9.7 (8.4-10.2) mg/dL Magnesium 2.5 (1.6-2.6) mg/dL Total Bilirubin 0.5 (0.0-1.0) mg/dL AST 26 (5-31) U/L ALT 19 (0-31) U/L Alkaline Phosphatase 81 (39-117) U/L Total Protein 8.7 H (6.5-8.0) g/dL Albumin 5.0 (3.5-5.0) g/dL Lipase 53 (8-78) U/L Urine Color Yellow Urine Appearance Clear Urine pH 6.0 (5.0-9.0) Ur Specific [place] 1.010 (1.005-1.025) Urine Protein Negative (Neg-Trace) mg/dL Urine Glucose (UA) Negative (Negative) mg/dL Urine Ketones Negative (Negative) mg/dL Urine Blood Moderate (2+) H (Negative) Urine Nitrite Negative (Negative) Ur Leukocyte Esterase Trace H (Negative) Urine RBC >20 H (0-2) /HPF Urine WBC 6-10 H (0-5) /HPF Ur Squamous Epith Cells 0-2 (0-2) /HPF Urine Bacteria None Seen (None Seen) Hyaline Casts 0-2 (0-2) /LPF Independent Interpretation I performed an independent interpretation of an: Ultrasound Radiology Impression Discussion of test interpretation with radiology: I have reviewed the radiologist's reading. Discharge Plan Discharge Clinical Impression: Vaginal bleeding Patient Disposition: Home, Self-Care Instructions: Abnormal (Dysfunctional) Uterine Bleeding (ED) Prescriptions: New ciprofloxacin HCl 500 mg tablet 500 mg PO Q12H 7 Days Qty: 14 0RF polyethylene glycol 3350 [Miralax] 17 gram/dose powder 17 g PO BID 4 Days Qty: 136 0RF senna 8.6 mg capsule 8.6 mg PO DAILY Qty: 14 0RF tranexamic acid 650 mg tablet 650 mg PO Q8H 3 Days Qty: 9 0RF No Action clindamycin HCl 300 mg capsule 450 mg PO TID 10 Days Qty: 45 0RF Paxlovid 300 mg (150 mg x 2)-100 mg tablet See Rx Instructions .ROUTE .COMPLEX Qty: 30 0RF Rx Instructions: take TWO 150 mg tablets of nirmatrelvir with ONE 100 mg tablet of ritonavir twice daily for 5 days meclizine 50 mg tablet 50 mg PO BID PRN (Reason: dizziness) Qty: 20 0RF ondansetron HCl 4 mg tablet 4 mg PO Q6H PRN (Reason: nausea and vomiting) Qty: 14 0RF ibuprofen 600 mg tablet 600 mg PO QID PRN (Reason: fever or pain) Qty: 20 0RF ondansetron 4 mg tablet,disintegrating 4 mg PO Q8H PRN (Reason: nausea and vomiting) Qty: 20 0RF albuterol sulfate 90 mcg/actuation aerosol powdr breath activated 2 inh inhalation Q4H PRN (Reason: shortness of breath or wheezing) Qty: 1 0RF Rx Instructions: May dispense medication equivalent accepted by patient's insurance benzonatate 100 mg capsule 100 mg PO TID PRN (Reason: cough) Qty: 14 0RF cyclobenzaprine 10 mg tablet 10 mg PO Q8H Qty: 20 0RF tramadol 50 mg tablet 50 mg PO Q8H PRN (Reason: pain) Qty: 9 0RF cefuroxime axetil 250 mg tablet 250 mg PO BID 7 Days Qty: 14 0RF ondansetron HCl 4 mg tablet 4 mg PO TID PRN (Reason: nausea and vomiting) 1 Days Qty: 21 0RF meclizine 25 mg tablet 25 mg PO TID PRN (Reason: dizziness) Qty: 15 0RF Referrals: [facility] [Provider Group] Referral Note: Vaginal bleed, need assessment for uterine cancer rule out. Fibroid on US Clinical Impression: Vaginal bleeding Interventions: ED Discharge Assessment Last Done: 12/17/24 21:09 Discharge Date/Time: 12/17/24 21:09 Print Language: Urdu
[2024-12-17 16:02] LABS: MANUAL DIFF FLAG NO
[2024-12-17 16:16] LABS: Alanine Aminotransferase 19 U/L (0-31); Albumin Level 5.0 g/dL (3.5-5.0); Alkaline Phosphatase 81 U/L (39-117); Anion Gap 13 (12-20); Aspartate Amino Transferase 26 U/L (5-31); Blood Urea Nitrogen 16 mg/dL (9-16); Calcium 9.7 mg/dL (8.4-10.2); Carbon Dioxide 28 mmol/L (22-29); Chloride 102 mmol/L (96-108); Creatinine Clr Calc Pharmacy 60.0; Estimated Glomerular Filt Rate > 60; Lipase 53 U/L (8-78); Magnesium 2.5 mg/dL (1.6-2.6); Potassium 4.5 mmol/L (3.3-5.1); Sodium 138 mmol/L (135-145); Total Protein 8.7 g/dL (6.5-8.0)
[2024-12-17 16:17] LABS: Appearance Urine Clear; Glucose Urine UA Negative (Negative); PH 6.0 (5.0-9.0); Specific Gravity - Urine 1.010 (1.005-1.025); UMIC TRIGGER UACC YES
[2024-12-17 16:20] LABS: Hematocrit 41.4 % (37.0-47.0); Hemoglobin 14.5 g/dl (12.0-16.0); Imm Gran Abs Auto 0.12 X10*3/uL (0.00-0.03); Imm Gran Pct Auto 1.1 % (0.0-0.4); Lymphocytes Absolute Auto 2.2 X10*3/uL (1.2-4.9); Mean Corpuscular HGB Conc 35.0 g/dl (31.0-35.0); Mean Corpuscular Hemoglobin 27.6 pg (27.0-33.0); Mean Corpuscular Volume 78.7 fL (80.0-98.0); NRBC Abs Auto 0.000 X10*3/uL (0.0-0.012); NRBC Pct Auto 0.0 /100WBC (0.0-0.2); Platelet Count 269 X10*3/uL (160-400); Red Blood Count 5.26 X10*6/uL (4.20-5.50); White Blood Count 11.1 X10*3/uL (4.8-10.8)
[2024-12-17 16:22] LABS: UACC Culture Trigger YES
[2024-12-17 20:33] VITALS: BP 174/71; PULSE 79; RESP 16; TEMP 36.9; O2SAT 99
[2024-12-17 21:09] VITALS: BP 174/71; PULSE 79; RESP 16; TEMP 36.9; O2SAT 99
--- OUTSIDE RECORDS SUMMARY | 2024-12-17 21:57 | XMS_ITS | Clinical Summary ---
Author Organization [employer] Address [address] [place] [address] 7[address] [place] [address] Care Team Providers Care Security Systems Engineer Name Role Phone Akil Zee NP Primary Care Provider + [phone] Allergies Active Allergy Reactions Criticality Noted Date Comments Rabeprazole 02/23/2022 Other reaction(s): stomach upset Atorvastatin 02/23/2022 Other reaction(s): Unknown Honey Bee Venom 02/23/2022 Other reaction(s): itchy @ site only @ this time Penicillin G 02/23/2022 Other reaction(s): Unknown Pravastatin Unknown 02/23/2022 Simvastatin 02/23/2022 Other reaction(s): Unknown Ezetimibe 02/23/2022 Other reaction(s): constipation, foul taste in mouth Medications EPINEPHrine (Epipen) 0.3 MG/0.3ML injection syringe as directed Injection prn severe allergy for 180 days 018 Active ondansetron ODT (Zofran-ODT) 4 MG disintegrating tablet Take 1 tablet by mouth every 8 (eight) hours if needed. 022 Active acetaminophen (Tylenol 8 Hour) 650 MG ER tabletIndications :Low back strain, initial encounter Take 1 tablet (650 mg) by mouth every 8 (eight) hours if needed for mild pain. Do not crush, chew, or split. 60 tablet 023 Active polyethylene glycol, PEG, 3350 (Glycolax) 17 GM/SCOOP powderIndications :Constipation, unspecified MIX AND DRINK DIRECTED ONCE A DAY NEEDED FOR 30 DAYS 510 g 023 Active Additional Information Patient not taking.Reported on 12/17/2024 traMADol (Ultram) 50 MG tabletIndications :Chronic left shoulder pain Take 1 tablet (50 mg) by mouth every 8 (eight) hours if needed for moderate pain. 15 tablet 024 Active albuterol 108 (90 Base) MCG/ACT inhalerIndication s:Mild intermittent asthma without complication Inhale 2 puffs every 6 (six) hours if needed for wheezing. 18 g 1 025 Active loratadine (Claritin) 10 MG tabletIndications :Allergic rhinitis, unspecified seasonality, unspecified trigger Take 1 tablet (10 mg) by mouth if needed each day for allergies. 90 tablet 3 025 2025 Active Additional Information Patient not taking.Reported on 12/17/2024 rosuvastatin (Crestor) 5 MG tabletIndications :Hyperlipidemia, unspecified hyperlipidemia type,Steatohepati tis Take 1 tablet (5 mg) by mouth Once per day. 90 tablet 3 025 Active famotidine (Pepcid) 20 MG tabletIndications :Gastro-esophagea l reflux disease without esophagitis TAKE 1 TABLET (20 MG) BY MOUTH IF NEEDED IN THE MORNING AND AT BEDTIME FOR HEARTBURN. 180 tablet 025 Active famotidine (Pepcid) 20 MG tabletIndications :Gastro-esophagea l reflux disease without esophagitis TAKE 1 TABLET (20 MG) BY MOUTH IF NEEDED IN THE MORNING AND AT BEDTIME FOR HEARTBURN. 180 tablet 025 2024 Discontinued Active Problems Problem Noted Date Diagnosed Date PTSD (post-traumatic stress disorder) 02/23/2022 Pain in left shoulder 02/23/2022 Allergic urticaria 02/23/2022 Osteoarthritis of knee 02/22/2022 Arthritis of knee 02/22/2022 Asthma in adult 02/22/2022 Chronic constipation 02/22/2022 Gastroesophageal reflux disease without esophagi tis 02/22/2022 History of cholecystectomy 02/22/2022 Glaucoma suspect of both eyes 02/22/2022 Hyperlipidemia 02/22/2022 Illiterate 02/22/2022 Migraine with aura 02/22/2022 Multinodular goiter 02/22/2022 Non-seasonal allergic rhinitis 02/22/2022 Osteoarthritis of spine with radiculopathy, cerv ical region 02/22/2022 Steatohepatitis 02/22/2022 Varicose veins of lower extremity 02/22/2022 Combined forms of age-related cataract of both e yes 02/22/2022 Presbyopia of both eyes 02/22/2022 Resolved Problems Problem Noted Date Diagnosed Date Resolved Date Thrombophlebitis of deep fem oral vein of left leg 01/28/2024 01/28/2024 Encounters Date Type Department Care Team Description 12/17/2024 2:00 PM EDT Office Visit [facility] [address] [place] [address] [facility] Acute abdominal pain (Primary Dx); Abdominal distention; Uterine enlargement; Post-menopausal bleeding 12/16/2024 Telephone [facility] MEDICAL [address] [place] [address] Akil Zee NP Blood in Urine; Vaginal Bleeding 12/14/2024 Refill [facility] [address] [place] [address] [facility] Gastro-esophageal reflux disease without esophagitis 12/04/2024 10:00 AM EDT Office Visit [facility] DENT[facility] [address] [place] [address] Francisca Trinh LLD 11/13/2024 9:00 AM EDT Office Visit [facility] [address] [place] [address] Francisca Trinh LLD from Last 3 Months Immunizations Immunization Administration Dates Next Due DTaP / Hep B / IPV 11/18/1998,07/16/1998 Hep A, Adult 11/18/1998,04/30/1998 Hep B, adult 11/18/1998,07/16/1998 Influenza, IIV3, injectable 01/03/2022,1 02/28/2020,02/04/2020,12/23,01/04/2018,01/12/2017,11/30/2010 Influenza, Injectable, MDCK, w/preservative 12/17/2023 Influenza, Split (incl. dangelo [place] antigen) 02/03/2013,01/07/2013,01/08/2012 MMR 06/28/2021 Pneumococcal Polysaccharide PPSV23 08/12/2007 Tdap 09/20/2009 Family History Medical History Relation Name Comments Glaucoma Mother Mother had operation of the eye Mother Relation Name Status Comments Mother Social History Tobacco Use Types Packs/Day Years Used Date Smoking Tobacco: Never Smokeless Tobacco: Never Tobacco Cessation:Counseling Given: Not Answered Alcohol Use Standard Drinks/Week Comments Never 0 [...] is your housing situation today? I have leighjuliette yañez 12/17/[address] you [...] not to disclose 2022 10:22 AM EST Last Filed Vital Signs Vital Sign Reading Time Taken Comments Blood Pressure 172/82 12/17/2024 2:08 PM EDT Pulse 68 12/17/2024 2:08 PM EDT Temperature 36.9 C (98.4 F) 12/17/2024 2:08 PM EDT Respiratory Rate 16 03/23/2022 3:13 PM EST Oxygen Saturation 98% 06/24/2024 12:34 PM EDT Inhaled Oxygen Concentration - - Weight 63.5 kg (140 lb) 12/17/2024 2:08 PM EDT Height 157.5 cm (5' 2 ) 12/17/2024 2:08 PM EDT Body Mass Index 25.61 12/17/2024 2:08 PM EDT Plan of Treatment Upcoming Encounters Date Type Department Care Team (Late st Contact Info) Description 12/25/2024 2:00 PM EDT Office Visit [facility] [address] [place] [address] Francisca Trinh LLD [address] [place] [address] Health Maintenance Due Date Last Done Comments CT Colonography 1961 Colonoscopy 1961 Colorectal Cancer Screening 1961 Dental Prophylaxis 1961 Dental X-Ray: Bitewings 1961 FIT DNA/Cologuard 1961 FIT 1961 FOBT 1961 Sigmoidoscopy 1961 Alcohol/Substance Use Screening 1973 Hepatitis B Vaccines (3 of 3 - Risk 3-dose series) 01/16/1999 11/18/1998, 11/18/1998, 07/16/1998, Additional history exists IPV Vaccines (3 of 3 - Adult catch-up series) 05/19/1999 11/18/1998, 07/16/1998 Pneumococcal Vaccine: 50+ Years (2 of 2 - PCV) 08/11/2008 08/12/2007 Zoster Vaccines (1 of 2) 2011 DTaP/Tdap/Td Vaccines (4 - Td or Tdap) 09/21/2019 09/20/2009, 11/18/1998, 07/16/1998 RSV Patients and Patients Aged 60 years or older (1 - Risk 60-74 years 1-dose series) 2021 Dental Oral Exam 02/19/2021 08/19/2020 Dental X-Ray: Full Mouth 08/21/2023 08/19/2020 Depression Monitoring 06/16/2024 12/17/2023, 023 Cervical Cancer Screening 07/14/2024 HPV/Cotest 07/14/2024 Pap Smear 07/14/2024 07/15/2019 COVID-19 Vaccine ( season) 2024 Influenza Vaccine (#1) 2024 , 01/03/2022, 12/28/2020, Additional history exists SDOH Screening 12/16/2024 12/17/2023 Disability Screening 03/13/2025 03/13/2024 Mammogram 06/10/2025 06/11/2023, 03/29, 10/07/2019, Additional history exists Tobacco Screening 12/17/2025 12/17/2024 Hepatitis A Vaccines Completed 11/18/1998, 04/30/18 99 HIV Screening Completed 04/26/2010 HIB Vaccines Aged Out No longer eligi ble based on patient's age to complete this topic HPV Vaccines Aged Out No longer eligi ble based on patient's age to complete this topic Meningococcal B Vaccine Aged Out No l onger eligible based on patient's age to complete this topic Meningococcal Vaccine Aged Out No argenis tobias eligible based on patient's age to complete this topic RSV under 20 months Aged Out No longe r eligible based on patient's age to complete this topic Rotavirus Vaccines Aged Out No longer eligible based on patient's age to complete this topic Procedures Procedure Name Priority Date/Time Associated Diagnosis Comments POCT URINALYSIS DIPSTICK Routine 12/17/2024 2:34 PM EDT Acute abdominal pain DIGITAL SCAN FOR DENTURES Routine 11/13/2024 9:00 AM EDT AMB REFERRAL TO OPHTHALMOLOGY Routine 10/10/2024 Unspecified acute and subacute iridocyclitis Presence of intraocular lens BI MAMMOGRAM SCREENING TOMOSYNTHESIS BILATERAL Routine 06/11/2023 2:09 PM EDT PANORAMIC RADIOGRAPHIC IMAGE Routine 08/19/2020 12:00 AM EDT COMPREHENSIVE ORAL EVALUATION - NEW OR ESTABLISHED PATIENT Routine 08/19/2020 12:00 AM EDT PAP SMEAR Routine 07/15/2019 12:00 AM EDT HIV-1 ANTIBODY, EIA Routine 04/26/2010 from Last 3 Months or Most Recently Relevant to Health Maintenance Results * (ABNORMAL) POCT urinalysis dipstick manually resulted (CPT 76426) (12/17/2024 2:34 PM EDT) Color, UA Yellow Clarity, UA Clear Glucose, UA Negative Bilirubin, UA Negative Ketones, UA Negative Spec Grav, UA 1.020 Blood, UA 2+(A) Negative, None Detected pH, UA 6.0 Protein, UA Moderate Urobilinogen, UA 4.0 Leukocytes, UA Negative Negative, Rare, Trace Nitrite, UA Negative Negative, None Detected Urine (Urine, Random) 12/17/2024 2:34 PM EDT [facility] POINT OF CARE TEST ENTER/ EDIT ORDERABLES Final Result * Referral to Ophthalmology (10/10/2024) Akil Zee NP OUTPATIENT REFERRAL ORDERABL ES Final Result * BI Mammogram Screening Tomosynthesis Bilateral (06/11/2023 2:09 PM EDT) Anatomical Region Laterality Modality Breast Bilateral Mammography Result [facility] Akil Zee NP IMG BI PROCEDURES Final Resu lt * Pap Smear (07/15/2019 12:00 AM EDT) Swab Result [facility] Historical Provider LAB CYTOLOGY ORDERABLES F inal Result * HIV-1 antibody, EIA (04/26/2010) External HIV-1 Antibody Negative Blood Venous blood specimen / Unknown Result [facility] Historical Provider LAB BLOOD ORDERABLES Caren l Result from Last 3 Months or Most Recently Relevant to Health Maintenance Insurance [facility] C3 DENTAL-[facility] MEDICAID STAND ADULT DENTAL - HSN FULL (MEDICAID) Care Teams Security Systems Engineer Relationship Specialty Start Date End Date Akil Zee NP [address] [place] [id number] PCP - General Internal Medicine 02/24/22
--- OUTSIDE RECORDS SUMMARY | 2024-12-17 21:57 | XMS_ITS | Encounter Summary ---
Author Organization [employer] Address [address] [facility] 7[address] [place] [address] Care Team Providers Care Shactor Name Role Phone Akil Zee NP Primary Care Provider + [phone] Encounter Details Date Type Department Care Team (Late st Contact Info) Description 06/26/2023 Orders Only [facility] [address] [place] [address] Akil Zee NP [address] [place] [address] Social History Tobacco Use Types Packs/Day Years [...] housing situation today? I have leigh yañez 01/03/[address] you li ve. Do you have problems with any of the following? None of the above 01/03/2023 Food Insecurity Answer Date Recorded Within the past 12 months, y ou worried that your food would run out before you got money to buy more: Never True 01/03/2023 Within the past 12 months,th e food you bought just didn't last and you didn't have enough money to get more: Never True 09/2022 Transportation Answer Date Recorded In the past 12 months, has l ack of transportation kept you from medical appts, meetings, work or from getting things needed for daily living? No 01/03/2023 Intimate Partner Violence Answer Date R ecorded [...] shut off services in your home? No 01/03/2023 Depression Answer Date Recorded Patient Health Questionnaire-2 Score 0 05/22/2022 Comments Unknown Sex and Gender Information Value Date Recorded Sex Assigned at Female 12/26/2021 10:14 AM EDT Legal Sex Female 10:14 AM EDT Gender Identity Female 02/23/2022 7:15 AM EST Sexual Orientation Choose not to disclose 2022 10:22 AM EST documented as of this encounter Plan of Treatment Upcoming Encounters Date Type Department Care Team (Late st Contact Info) Description 12/25/2024 2:00 PM EDT Office Visit [facility] [address] [place] [address] Francisca Trinh LLD [address] [place] [address] documented as of this encounter Procedures Procedure Name Priority Date/Time Associated Diagnosis Comments BI MAMMOGRAM SCREENING TOMOSYNTHESIS BILATERAL Routine 06/11/2023 2:09 PM EDT documented in this encounter Results * BI Mammogram Screening Tomosynthesis Bilateral (06/11/2023 2:09 PM EDT) Anatomical Region Laterality Modality Breast Bilateral Mammography Akil Zee ADVERTISING DIRECTOR IMG BI PROCEDURES Final Resu lt documented in this encounter Visit Diagnoses Not on filedocumented in this encounter Additional Health Concerns Assessment Noted Time PHQ-9 Depression Total Score: 18 023 12:29 PM EST documented as of this encounter Care Teams Shactor Relationship Specialty Start Date End Date Akil Zee, PRIYA [address] [place] [address] PCP - General Internal Medicine 02/24/22 documented as of this encounter
--- OUTSIDE RECORDS SUMMARY | 2024-12-17 21:57 | XMS_ITS | Encounter Summary ---
Author Organization [employer] Address [address] [place] [address] [address] [place] [address] Care Team Providers Care Wallpaper Printer Name Role Phone Akil Zee NP Primary Care Provider + [phone] Reason for Visit * Reason Comments Med Refill Encounter Details Date Type Department Care Team (Late st Contact Info) Description 01/26/2022 Refill [facility] MEDICAL [address] [place] [address] Akil Zee NP [address] [place] [address] Allergic rhinitis, unspecified seasonality, unspecified trigger (Primary Dx) Social History Tobacco Use Types Packs/Day Years Used Date Smoking Tobacco: Never Assessed Comments Unknown Sex and Gender Information Value Date Recorded Sex Assigned at Female 12/26/2021 10:14 AM EDT Legal Sex Female 10:14 AM EDT Gender Identity Female 02/23/2022 7:15 AM EST Sexual Orientation Choose not to disclose 2022 10:22 AM EST documented as of this encounter Miscellaneous Notes * Telephone Encounter - Akil Zee NP - 01/30/2022 2:28 PM EST Rx sent documented in this encounter Plan of Treatment Upcoming Encounters Date Type Department Care Team (Late st Contact Info) Description 12/25/2024 2:00 PM EDT Office Visit [facility] DENTAL [address] [place] [address] Francisca Trinh LLD [address] [place] [address] documented as of this encounter Visit Diagnoses Diagnosis Allergic rhinitis, unspecified seasonality, unspecified trigger- Primary documented in this encounter Care Teams Wallpaper Printer Relationship Specialty Start Date End Date Akil Zee NP [address] [place] [address] PCP - General Internal Medicine 02/24/22 documented as of this encounter
--- OUTSIDE RECORDS SUMMARY | 2024-12-17 21:57 | XMS_ITS | Encounter Summary ---
Author Organization [employer] Address [address] [facility] [address] [place] [address] Care Team Providers Care Divorce Lawyer Name Role Phone Akil Zee NP Primary Care Provider + [phone] Reason for Visit * Reason Onset Date Comments Blood in Urine 12/16/2024 Vaginal Bleeding 12/16/2024 Encounter Details Date Type Department Care Team (Late st Contact Info) Description 12/16/2024 Telephone [facility] MEDICAL [address] [place] [address] Akil Zee, PRIYA [address] [place] [address] Blood in Urine; Vaginal Bleeding Social History Tobacco Use Types Packs/Day Years [...] encounter Miscellaneous Notes * Telephone Encounter - Wendy Fonseca - 12/17/2024 12:14 PM EDT Patient scheduled to see VF today at 2 * Telephone Encounter - Wendy Fonseca - 12/17/2024 10:50 AM EDT Patients daughter called Patient does not menstruate any more but started having vaginal bleeding yesterday It was light yesterday but is not getting heavy Patient is very concerned Please call back to advise No appointments available today Patient will need an diplomatic interpreter Daughter will not be available so please call patients cell number Please call patient back at [phone] * Telephone Encounter - Arminda Clayton - 12/16/2024 2:15 PM EDT Patient's daughter (Ruth) called back for nursing. Nursing unavailable. Ruth states the best number to reach the patient is at [phone]. * Telephone Encounter - Tracee Driscoll LPN - 12/16/2024 10:28 AM EDT Call placed to pt via diplomatic interpreter [phone]. No answer, no voicemail. * Telephone Encounter - Arminda Clayton - 12/16/2024 10:15 AM EDT Patient called stating she went to go to the bathroom today (12/16/24) and she was bleeding and doesn't know why. Patient states her stomach doesn't feel good and it has never happened before. Offered patient next available appointment but patient wants to see someone today (12/16/24). Patient states she would like a call back with a hourly sign language interpreter with next steps. documented in this encounter Plan of Treatment Upcoming Encounters Date Type Department Care Team (Late st Contact Info) Description 12/25/2024 2:00 PM EDT Office Visit [facility] [address] [place] [address] Francisca Trinh LLD [address] [place] [address] documented as of this encounter Visit Diagnoses Not on filedocumented in this encounter Additional Health Concerns Assessment Noted Time PHQ-9 Depression Total Score: 18 023 12:29 PM EST documented as of this encounter Care Teams Divorce Lawyer Relationship Specialty Start Date End Date Akil Zee NP [address] [place] [address] PCP - General Internal Medicine 02/24/22 documented as of this encounter
--- OUTSIDE RECORDS SUMMARY | 2024-12-17 21:57 | XMS_ITS | Encounter Summary ---
Author Organization [employer] Address [address] [place] [address] [address] [place] [address] Care Team Providers Care Rn Compliance Name Role Phone Akil Zee NP Primary Care Provider + [phone] Reason for Visit * Reason Comments Med Refill Encounter Details Date Type Department Care Team (Late st Contact Info) Description 12/14/2024 Refill [facility] MED[facility] [address] [place], [place] [phone] [facility] [address] [place] [address] Gastro-esophageal reflux disease without esophagitis Social History Tobacco Use Types Packs/Day Years [...] encounter Miscellaneous Notes * Telephone Encounter - Ellie Hannah MD - 12/15/2024 2:03 PM EDT Approving, but needs appt for additional refills. documented in this encounter Plan of Treatment Upcoming Encounters Date Type Department Care Team (Late st Contact Info) Description 12/25/2024 2:00 PM EDT Office Visit [facility] D[facility] [address] [place] [address] Francisca Trinh LLD [address] [place] [address] documented as of this encounter Visit Diagnoses Diagnosis Gastro-esophageal reflux disease without esophagitis documented in this encounter Additional Health Concerns Assessment Noted Time PHQ-9 Depression Total Score: 18 023 12:29 PM EST documented as of this encounter Care Teams Rn Compliance Relationship Specialty Start Date End Date Akil Zee NP [address] [place] [address] PCP - General Internal Medicine 02/24/22 documented as of this encounter
== END 2024-12-17 21:09 | disposition home or self-care (01) ==
PROVIDERS: Physician Assistant Medical; Emergency Provider Student in an Organized Health Care Education/Training Program; PCP Nurse Practitioner Community Health
DX: N93.9 Abnormal uterine and vaginal bleeding, unspecified (principal); J45.909 Unspecified asthma, uncomplicated; Z79.899 Other long term (current) drug therapy
CPT/HCPCS: 36415; 76830; 76856; 80053; 81001; 83690; 83735; 85025; 87086; 99283; 99284

== ENCOUNTER → 2024-12-17 15:52 | Outpatient (BNV) | payer MEDICAID, SELFPAY | PROVIDERS: PCP Nurse Practitioner Community Health; Visit Provider Radiology Diagnostic Radiology | DX: N93.9 Abnormal uterine and vaginal bleeding, unspecified (principal) | CPT/HCPCS: 76830; 76856 ==

== ENCOUNTER 2024-12-31 14:28 | Outpatient (AMB) | payer MEDICAID, SELFPAY ==
--- NOTE | 2024-12-31 14:42 | MHC.OFFVIS ---
Vital Signs 12/31/24 14:43 Height 5 ft 2 in Weight 136 lb BMI 24.9 BP 130/84 Intake Visit Reasons: ER Follow up/Fibroids/Vaginal Bleeding Dehydration Unit Operator Required: Yes Dehydration Unit Operator Language: Collection Manager Services: Dehydration Unit Operator Present (in person) Dehydration Unit Operator Name: Reshma BETANCOURT Information Interpreted: non-clinical & clinical Instant Potato Processor: Instant Potato Processor Present (Reshma BETANCOURT) Accompanied by: Daughter Allergies Penicillins Allergy (Severe, Verified 12/17/24 15:51) ANAPHYLAXIS AND BLEEDING Post menopausal: Yes HPI Comments Details: Presenting for ER follow-up for vaginal bleeding 12/17/2024 H&H 14.5/41.4 Last mammogram in 06/19 was BI-RADS 1 Pelvic ultrasound in 12/20 showed the following: Uterus: The uterus is anteverted and measures 7.2 x 3.1 x 3.7 cm. The double wall endometrial thickness is 6 mm. This is minimally thickened for a postmenopausal patient and is similar in thickness to October 2017. Small amount of fluid seen in the endometrial cavity. This is new compared to October 2017 exam. The uterus is smooth in contour and has normal myometrial echogenicity. 1.4 x 1.2 x 1.3 cm left intramural upper uterine body fibroid. Nabothian cysts in the cervix. Adnexa: The ovaries are not identified. No adnexal mass. There is no pelvic ascites or fluid collection. [facility] Medical History Hx of ectopic Migraine PTSD (post-traumatic stress disorder) Hypothyroidism Anxiety Hyperlipidemia Depression Surgical History History of endometrial ablation Hx of cholecystectomy Family History Mother HTN (hypertension) Diabetes Father HTN (hypertension) Diabetes Maternal Grandmother Heart disease Social History Household Members: None Housing: Apartment Alcohol intake: never Patient Tobacco Use Status: Never used Tobacco Use of substances other than those prescribed or required for medical reasons: No Current occupational status: disabled Sexually active: No Sexual orientation: Straight/Heterosexual Gender identity: Female Female Reproductive History Menstrual Total pregnancies: 5 Full term: 2 Number of Living Children: 2 Ab spontaneous: 2 Ectopics: 1 Review of Systems Const All systems reviewed & are unremarkable except as noted in HPI and below Card Reports as per HPI Resp Reports as per HPI GI Reports as per HPI and Reports no additional complaints Reports as per HPI Physical Exam Vital Signs: Last Vital Signs BP 130/84 12/31/24 14:43 BMI result Body Mass Index 24.9 Const General: cooperative, healthy appearing and comfortable Chest Chest palpation & inspection: normal inspection of the chest and normal palpation of entire chest wall Breast/axilla inspection: normal inspection of the breasts and normal inspection of the axillae Breast/axilla palpation: normal palpation of the breasts, normal palpation of the axillae and no axillary lymphadenopathy Resp Effort & Inspection: normal respiratory effort Auscultation: clear to auscultation bilaterally Percussion: percussion normal Cardio Palpation: normal PMI Rate: regular rate Rhythm: regular rhythm Heart sounds: no murmurs and no rubs Peripheral pulses: Peripheral pulses 2+ throughout GI Inspection: Yes normal to inspection Palpation (GI): Soft to palpation, nontender, no guarding, not rigid and No hepatosplenomegaly present Percussion: Yes normal to percussion Auscultation: normal bowel sounds Rectal Exam - Female: deferred General: Yes bladder normal to palpation External Female Exam: No lesion Speculum Exam - Vagina: normal appearance of the vagina, normal palpation, normal vaginal discharge and not erythematous Speculum Exam - Cervix: normal appearance of the cervix and normal palpation Bimanual exam- vagina & uterus: normal bimanual exam, normal palpation, uterine size normal, bladder normal to palpation, consistency normal and normal palpation Bimanual Exam- Adnexa, other: normal adnexae, no masses and no tenderness Office Procedures Endometrial Biopsy Details: The patient was counseled regarding the indication and benefits of endometrial sampling to rule out endometrial pathology including not limited to endometrial hyperplasia or endometrial cancer and others; The alternatives (Either do nothing vs. hysteroscopy D&C) & the risks were discussed with the patient including but not limited: pain, uterine perforation, bleeding, infection, possible injury to bladder, bowel, ureter, possible need for blood transfusion with all its possible risks. The patient verbalized understanding all questions answered and signed consent. The patient was placed into the dorsal lithotomy position; a speculum was inserted in the vagina. Using aseptic technique for the procedure, the cervix was cleansed with Betadine. The anterior lip of the cervix was grasped with a single tooth tenaculum. The uterus was sounded to 7 cm with a 4 mm Pipelle was used. Tissues samples were obtained and placed in formalin, in a patient labeled container and sent to the pathology department. At the end of the procedure, there was minimal bleeding noted The patient tolerated the procedure well and was discharged in good condition with the following instructions: Nothing in the vagina until the bleeding stops. No sex until the bleeding stops, to call if any of the following occurs: fever (>100.4), flu-like symptoms, abdominal pain, heavy bleeding, four smelling vaginal discharge. The patient was instructed to schedule a Follow up appointment in 2 weeks to discuss pathology results of the biopsy and treatment options. This note was generated with a voice recognition program. Some errors may have been overlooked during the review of this note. Sometimes these errors may affect the content or meaning of a given sentence. 66748-Btyxdcewnte Biopsy Assessment & Plan Assessment & Plan (1) Uterine myoma: Code(s): D25.9 - Leiomyoma of uterus, unspecified Category: Medical Plan: Discussed with the patient the findings on pelvic ultrasound & the risk of myosarcoma; in addition reviewed with the patient that malignancy and pre malignancy cannot be ruled out without hysterectomy for pathological evaluation ; furthermore, explained to the patient the limitation of pelvic ultrasound and endometrial biopsy in the setting. Discussed with the patient the options of treatment including expectant management versus hysterectomy; the pros and cons, risks benefits of each approach were discussed with the patient including the fact that in cases of myosarcoma, surgical treatment can lead to early diagnosis and positively affects the prognosis; after further discussion, the patient decided to proceed with expectant management. Will repeat pelvic ultrasound periodically. Instructions given to patient to call in case any of the following occurs: pressure symptoms, abnormal uterine bleeding, pelvic pain; and to schedule a six-months pelvic ultrasound (order placed) and a follow-up appointment . All questions answered, the patient verbalized understanding and agreed with the plan . (2) Postmenopausal bleeding: Comment: Endometrial thickening with endometrial fluid History of endometrial ablation Code(s): N95.0 - Postmenopausal bleeding Category: Medical Plan: Co testing done. Discussed with the patient the pelvic ultrasound findings, the endometrial stripe thickenss measured by ultrasound was more than 4mm. The negative predictive value, positive predictive value, Sensitivity, specificity of using ultrasound measurement of endometrial stripe to detecting endometrial pathology including hyperplasia , polyp or cancer were discussed with the patient. Recommended to the patient that the next step is an endometrial sampling via hysteroscopy D&C possible polypectomy versus endometrial biopsy to r/o endometrial pathology including hyperplasia or cancer. All the pros and cons risks and benefits of each approach were discussed with the patient, endometrial biopsy being less invasive, office procedure with less sensitivity and inability diagnose a polyp and removal versus hysteroscopy done under anesthesia more invasive more sensitive to endometrial cancer and possibility of diagnosing and endometrial polyp with the possibility of polypectomy. All questions were answered pt verbalized understanding and decided to proceed with endometrial biopsy. EMB done, see procedure note Orders: Orders AMB Endometrial Biopsy Today N95.0 - Postmenopausal bleeding US pelvic and transvaginal 6 Months D25.9 - Leiomyoma of uterus, unspecified MM tomosynthesis screening BI Today Z12.31 - Encounter for screening mammogram for malignant neoplasm of breast Medications: Discontinued clindamycin HCl Discontinued Reason: Patient Completed Course 450 mg (1.5 x 300 mg) PO TID 10 days 45 caps 0RF ibuprofen Discontinued Reason: Patient no longer taking 600 mg PO QID PRN 20 tabs 0RF fever or pain nirmatrelvir-ritonavir 300 mg (150 mg x 2)-100 mg (Paxlovid) Discontinued Reason: Patient Completed Course take TWO 150 mg tablets of nirmatrelvir with ONE 100 mg tablet of ritonavir twice daily for 5 days 30 tabs 0RF ondansetron HCl Discontinued Reason: Duplicate 4 mg PO Q6H PRN 14 tabs 0RF nausea and vomiting benzonatate Discontinued Reason: Patient Completed Course 100 mg PO TID PRN 14 caps 0RF cough cefuroxime axetil Discontinued Reason: Patient Completed Course 250 mg PO BID 7 days 14 tabs 0RF meclizine Discontinued Reason: Patient no longer taking 50 mg PO BID PRN 20 tabs 0RF dizziness cyclobenzaprine Discontinued Reason: Patient no longer taking 10 mg PO Q8H 20 tabs 0RF ondansetron HCl Discontinued Reason: Duplicate 4 mg PO TID 24 hours PRN 21 tabs 0RF nausea and vomiting ciprofloxacin HCl Discontinued Reason: Patient Completed Course 500 mg PO Q12H 7 days 14 tabs 0RF Coding Level of Care Code New Pt Level 3 (06671) Procedure Only Diagnoses Uterine myoma D25.9 Postmenopausal bleeding N95.0 CPT Codes Endometrial Biopsy - CPT: 46704-Ucxznmrzjzp Biopsy ([id number])
[2024-12-31 14:43] VITALS: BP 130/84; BMI 24.9
--- OUTSIDE RECORDS SUMMARY | 2024-12-31 17:37 | XMS_ITS | Encounter Summary ---
Author Organization [employer] Address [address] 7t [place] [address] Care Team Providers Care Cooling Tower Operator Name Role Phone Akil Zee NP Primary Care Provider + [phone] Jacobo Rodríguez Unavailable Reason for Visit * Reason Comments Med Refill Encounter Details Date Type Department Care Team (Late st Contact Info) Description 01/26/2022 Refill [facility] MED[facility] [address] [place] [address] Akil Zee NP [address] [place] [address] Allergic rhinitis, unspecified seasonality, unspecified trigger (Primary [...] Care Team (Late st Contact Info) Description 01/05/2025 11:00 AM EST Office Visit [facility] DENTAL [address] [place] [address] Francisca Trinh LLD [address] [place] [address] documented as of this encounter Visit Diagnoses Diagnosis Allergic rhinitis, unspecified seasonality, unspecified trigger- Primary documented in this encounter Care Teams Cooling Tower Operator Relationship Specialty Start Date End Date Akil Zee NP [address] [place] [address] PCP - General Internal Medicine 02/24/22 Jacobo Rodríguez 12/18/24 documented as of this encounter
--- OUTSIDE RECORDS SUMMARY | 2024-12-31 17:37 | XMS_ITS | Encounter Summary ---
Author Organization [employer] Address [address] [place] [address] 7t [place] [address] Care Team Providers Care Vocal Music Instructor Name Role Phone Aikl Zee NP Primary Care Provider + [phone] Jacobo Rodríguez Unavailable Reason for Visit * Reason Comments Med Refill Encounter Details Date Type Department Care Team (Late st Contact Info) Description 12/14/2024 Refill [facility] MED[facility] [address] [place] [address] [facility] [address] [place] [address] Gastro-esophageal reflux disease without esophagitis Social History [...] Description 01/05/2025 11:00 AM EST Office Visit [facility] D[facility] [address] [place] [address] Francisca Trinh LLD [address] [place], [place] [phone] documented as of this encounter Visit Diagnoses Diagnosis Gastro-esophageal reflux disease without esophagitis documented in this encounter Additional Health Concerns Assessment Noted Time PHQ-9 Depression Total Score: 18 023 12:29 PM EST documented as of this encounter Care Teams Vocal Music Instructor Relationship Specialty Start Date End Date Akil Zee NP [address] [place] [address] PCP - General Internal Medicine 02/24/22 Jacobo Rodríguez 12/18/24 documented as of this encounter
--- OUTSIDE RECORDS SUMMARY | 2024-12-31 17:37 | XMS_ITS | Encounter Summary ---
Author Organization [employer] Address [address] [facility] 7t [place] [address] Care Team Providers Care Architecture Intern Name Role Phone Akil Zee NP Primary Care Provider + [phone] Jacobo Rodríguez Unavailable Encounter Details Date Type Department Care Team (Late st Contact Info) Description 12/18/2024 Orders Only [facility] [address] [place] [address] Akil Zee NP [address] [place] [address] Social History Tobacco Use Types Packs/Day Years [...] Description 01/05/2025 11:00 AM EST Office Visit [place] [facility] [address] [place] [address] Francisca Trinh LLD 9 [place] [address] documented as of this encounter Procedures Procedure Name Priority Date/Time Associated Diagnosis Comments US PELVIS TRANSVAGINAL Routine 12/17/2024 9:48 AM EDT documented in this encounter Results * US Pelvis Transvaginal (12/17/2024 9:48 AM EDT) Anatomical Region Laterality Modality Pelvis Ultrasound us Akil Zee MEMBERSHIP ASSISTANT IMG US PROCEDURES Final Resu lt documented in this encounter Visit Diagnoses Not on filedocumented in this encounter Additional Health Concerns Assessment Noted Time PHQ-9 Depression Total Score: 18 023 12:29 PM EST documented as of this encounter Care Teams Architecture Intern Relationship Specialty Start Date End Date Akil Zee NP [address] [place] [address] PCP - General Internal Medicine 02/24/22 Jacobo Rodríguez 12/18/24 documented as of this encounter
--- OUTSIDE RECORDS SUMMARY | 2024-12-31 17:37 | XMS_ITS ---
Author Organization [employer] Address [address] [place] [address] [address] [place] [address] Care Team Providers Care Matrix Drier Tender Name Role Phone Akil Zee NP Primary Care Provider + [phone] Jacobo Rodríguez Unavailable CHW Complex Status:Outreach In Progress (Enrolling) Start date:12/18/2024 Enrollment reason:ADT Feed Overview [facility]. Evs C3 eligible Case Team Name Relationship Phone Jacobo Rodríguez(Responsible Staff) [phone] Continued Care and Services Coordination
--- OUTSIDE RECORDS SUMMARY | 2024-12-31 17:37 | XMS_ITS | Clinical Summary ---
Author Organization [employer] Address [address] [place] [address] [address]t [place] [address] Care Team Providers Care Coin Box Collector Name Role Phone Akil Zee NP Primary Care Provider + [phone] Jacobo Rodríguez Unavailable Allergies Active Allergy Reactions Criticality Noted Date [...] Encounters Date Type Department Care Team Description 12/25/2024 Patient Outreach [facility] (C3) Department [address] [phone] Jacobo Rodríguez 12/18/2024 Patient Outreach [facility] (C3) Department [address] [place] [phone] Jacobo Rodríguez c3 care management 12/18/2024 Orders Only [facility] Information Management [address] [place] [address] Akil Zee, PRIYA 12/18/2024 Telephone [facility] [address] [place] [address] Akil Zee NP ER Follow-up 12/17/2024 2:00 PM EDT Office Visit [facility] [address] [place] [address] [place] Acute abdominal pain (Primary Dx); Abdominal distention; Uterine enlargement; Post-menopausal bleeding 12/16/2024 Telephone [facility] MEDICAL [address] [place] [address] Akil Zee NP Blood in Urine; Vaginal Bleeding 12/14/2024 Refill [facility] [address] [place] [address] [place] [facility] Gastro-esophageal reflux disease without esophagitis 12/04/2024 10:00 AM EDT Office Visit [facility] DENTAL [address] [place] [address] Francisca Trinh LLD 11/13/2024 9:00 AM EDT Office Visit [facility] D[facility] [address] [place] [address] Francisca Trinh LLD from Last 3 Months [...] the past 12 months, has t he [employer], gas, oil or water company threatened to [...] 01/05/2025 11:00 AM EST Office Visit [facility] DENTAL [address] [place] [address] Francisca Trinh LLD [address] [place] [address] Health Maintenance Due Date Last Done Comments [...] ( season) 2024 Influenza Vaccine (#1) 2024 4, 01/03/2022, 12/28/2020, Additional history exists SDOH Screening [...] 12/17/2024 2:34 PM EDT Acute abdominal pain US PELVIS TRANSVAGINAL Routine 9:48 AM EDT DIGITAL SCAN FOR DENTURES Routine 11/13/2024 9:00 [...] (ABNORMAL) POCT urinalysis dipstick manually resulted (CPT 70162) (12/17/2024 2:34 PM EDT) Color, UA Yellow Clarity, UA Clear Glucose, UA Negative Bilirubin, UA Negative Ketones, UA Negative Spec Grav, UA 1.020 Blood, UA 2+(A) Negative, None Detected pH, UA 6.0 Protein, UA Moderate Urobilinogen, UA 4.0 Leukocytes, UA Negative Negative, Rare, Trace Nitrite, UA Negative Negative, None Detected Urine (Urine, Random) 12/17/2024 2:34 PM EDT Result [facility] POINT OF CARE TEST ENTER/ EDIT ORDERABLES Final Result * US Pelvis Transvaginal (12/17/2024 9:48 AM EDT) Anatomical Region Laterality Modality Pelvis Ultrasound Result [facility] Akil Zee NP IMG US PROCEDURES Final Resu lt * Referral to Ophthalmology (10/10/2024) Result [facility] Akil Zee NP OUTPATIENT REFERRAL ORDERABL ES Final Result * BI Mammogram Screening Tomosynthesis Bilateral (06/11/2023 2:09 PM EDT) Anatomical Region Laterality Modality Breast Bilateral Mammography Result [facility] Akil Zee NP IMG BI PROCEDURES Final Resu lt * Pap Smear (07/15/2019 12:00 AM EDT) Swab Result [facility] Provider LAB CYTOLOGY ORDERABLES F inal Result * HIV-1 antibody, EIA (04/26/2010) External HIV-1 Antibody Negative Blood Venous blood specimen / Unknown Result [facility] Provider LAB BLOOD ORDERABLES Caren l Result from Last 3 Months or Most Recently Relevant to Health Maintenance Insurance [place] [facility] MEDICAID STAND ADULT DENTAL - HSN FULL (MEDICAID) Care Teams Coin Box Collector Relationship Specialty Start Date End Date Akil Zee NP [address] [place] [address] PCP - General Internal Medicine 02/24/22 Jacobo Rodríguez 12/18/24
--- OUTSIDE RECORDS SUMMARY | 2024-12-31 17:37 | XMS_ITS | Encounter Summary ---
Author Organization [employer] Address [address] [facility] 7t [place] [address] Care Team Providers Care Filter Press Pumper Name Role Phone Akil Zee NP Primary Care Provider + [phone] Jacobo Rodríguez Unavailable Encounter Details Date Type Department Care Team (Late st Contact Info) Description 06/26/2023 Orders Only [facility] [address] [place] [address] Akil Zee NP [address] [place] [address] Social History Tobacco Use Types Packs/Day Years [...] 01/05/2025 11:00 AM EST Office Visit [facility] DENTAL [address] [place] [address] Francisca Trinh LLD [address] [place] [address] documented as of this encounter Procedures Procedure Name Priority Date/Time Associated Diagnosis Comments BI MAMMOGRAM SCREENING TOMOSYNTHESIS BILATERAL Routine 06/11/2023 2:09 PM EDT documented in this encounter Results * BI Mammogram Screening Tomosynthesis Bilateral (06/11/2023 2:09 PM EDT) Anatomical Region Laterality Modality Breast Bilateral Mammography Akil Zee SPLITTER TENDER IMG BI PROCEDURES Final Resu lt documented in this encounter Visit Diagnoses Not on filedocumented in this encounter Additional Health Concerns Assessment Noted Time PHQ-9 Depression Total Score: 18 023 12:29 PM EST documented as of this encounter Care Teams Filter Press Pumper Relationship Specialty Start Date End Date Akil Zee NP [address] [facility] [place] [address] PCP - General Internal Medicine 02/24/22 Jacobo Rodríguez 12/18/24 documented as of this encounter
== END 2024-12-31 15:36 | disposition home or self-care (01) ==
LOC: HO.HWS 14:29
PROVIDERS: PCP Nurse Practitioner Community Health; Visit Provider Obstetrics & Gynecology
DX: D25.9 Leiomyoma of uterus, unspecified (principal); N95.0 Postmenopausal bleeding
CPT/HCPCS: 58100; 99203

== ENCOUNTER 2024-12-31 14:28 | Outpatient (REF) | payer MEDICAID, SELFPAY | END 2024-12-31 14:29 | disposition home or self-care (01) | LOC: HO.LNP 14:28 | PROVIDERS: PCP Nurse Practitioner Community Health; Visit Provider Obstetrics & Gynecology | DX: N95.0 Postmenopausal bleeding (principal); D25.9 Leiomyoma of uterus, unspecified; R93.89 Abnormal findings on diagnostic imaging of other specified body structures; Z12.31 Encounter for screening mammogram for malignant neoplasm of breast; Z11.51 Encounter for screening for human papillomavirus (HPV) | CPT/HCPCS: 58100; 87626; 88175; 88305; 99202 ==

== ENCOUNTER 2025-01-03 17:45 | Emergency (ER) | payer MEDICAID, SELFPAY ==
--- NOTE | ~2025-01-03 | US_ITS ---
CLINICAL HISTORY: vag bleeding US pelvis transabdominal and transvaginal with doppler interrogation Comparison: 12/17/2024 Findings: Transabdominal scanning performed for overall anatomy. Transvaginal scanning performed for additional detail. Anteverted uterus 7.7 cm in length. Normal echotexture. Left-sided intramural fibroids are present, measuring 12 x 13 x 11 mm, and 18 x 14 x 15 mm. Normal endometrium, 6 mm thickness. Trace amount of fluid is present within endometrial cavity. Ovaries are not visualized bilaterally. No gross adnexal lesions or collections. No free fluid Impression: 1. Uterine fibroids as described above. 2. Nonvisualization of the ovaries bilaterally. This document has been electronically signed by: Darvin Frey MD on 01/03/2025 19:57:43
[2025-01-03 18:05] VITALS: BP 168/77; PULSE 77; RESP 18; TEMP 36.6; O2SAT 99; BMI 23.6
--- NOTE | 2025-01-03 18:09 | ED_ITS ---
HPI - General Adult General Chief complaint: Vaginal Bleeding Stated complaint: Vaginal Bleeding Time Seen by Provider: 01/03/25 21:55 Source: patient Mode of arrival: ambulatory Limitations: language barrier (Medicaid Business Analyst services utilized) History of Present Illness ED Provider: Torsten JOHNSON HPI narrative: The patient is a 64-year-old female presenting to the ED for evaluation of vaginal bleeding. The patient reports she was seen in this ED on 12/24 for the bleeding, ultrasound at that time showed a 6 mm endometrial stripe for which she followed up with blacktop paver operator and reportedly had a uterine scraping , clarification and chart review reveals patient underwent endometrial biopsy on 12/[address] Gil. The patient reports she had slight bleeding the day of the biopsy, and the morning of the , however bleeding then subsided. Patient reports today she had to move her washing machine, after pushing on the washing machine she felt an odd sensation at her vaginal meatus, patient reports she went to the bathroom and wiped away large amount of blood. Patient reports she then lifted a package of soda and had a similar sensation this time with associated abdominal cramping, patient reports she went to the bathroom, urinated blood-tinged urine, and again experienced blood when wiping. The patient reports she contacted her family who recommended she come to the ED for evaluation. The patient denies associated lightheadedness, dizziness, near-syncope, syncope, chest pain, shortness of breath, dysuria, diarrhea, or constipation. The patient reports since she has been in the ED she has had additional bleeding noted during ultrasound, and is now wearing a pad, has not needed to change the pad since arriving in the ED. Related Data Previous Rx's ?Medication ?Instructions ?Recorded albuterol sulfate 90 mcg/actuation 2 inh inhalation Q4 H PRN shortness 02/19/22 breath activated powder inhaler of breath or wheezing #1 ea ondansetron 4 mg disintegrating 4 mg PO Q8H PRN nausea and 02/19/22 tablet vomiting #20 tabs tramadol 50 mg tablet 50 mg PO Q8H PRN pain #9 tab s 04/25/22 meclizine 25 mg tablet 25 mg PO TID PRN dizziness # 15 tabs 04/16/23 polyethylene glycol 3350 17 17 g PO BID 4 days #136 gr ams 12/17/24 gram/dose oral powder (Miralax) sennosides 8.6 mg capsule (senna) 8.6 mg PO DAILY #14 caps 12/17/24 tranexamic acid 650 mg tablet 650 mg PO Q8H 3 days #9 tabs 12/17/24 Allergies Allergy/AdvReac Type Severity Reaction Status Date / Time Penicillins Allergy Severe ANAPHYLAXIS Verified 01/03/25 18:08 AND BLEEDING Review of Systems 2 Review of Systems: Yes all other systems are reviewed and are negative PMFSH Past Medical History Medical History Hx of ectopic Migraine PTSD (post-traumatic stress disorder) Hypothyroidism Anxiety Hyperlipidemia Depression Surgical History History of endometrial ablation Hx of cholecystectomy Family History Family History Mother HTN (hypertension) Diabetes Father HTN (hypertension) Diabetes Maternal Grandmother Heart disease Social History Social History Household Members: None Housing: Apartment Alcohol intake: never Patient Tobacco Use Status: Never used Tobacco Smoked in Last 30 Days: No Use of substances other than those prescribed or required for medical reasons: No Advance Directives: No Advance Directives Information Provided: No Current occupational status: disabled Sexual orientation: Straight/Heterosexual Gender identity: Female Physical Exam ED Vital Signs: Vital Signs - 24 hr 01/03/25 18:05 01/03/25 21:04 01/03/25 23:11 Temperature 97.8 F 97.8 F Pulse Rate 77 84 71 Respiratory Rate 18 16 18 Blood Pressure 168/77 H 160/73 H 148/67 H Pulse Oximetry 99 99 100 Oxygen Delivery Method Room Air Room Air Room Air BMI result Body Mass Index 23.6 CONSTITUTIONAL: The patient appears non-toxic, well nourished and in no acute distress. Vital signs as documented. HEAD: Atraumatic, normocephalic. EYES: EOMs grossly intact, pupils equal, conjunctiva clear, no exudate. ENT: Nares patent, no discharge. Airway patent, no audible stridor, visible mucosa is pink and moist without noted lesions. NECK: Trachea is midline, no obvious masses or gross abnormalities. CHEST: Symmetric movement, normal appearance. LUNGS: LS present and CTAB, no w/r/r. Non-labored work of breathing. CARDIAC: Regular Rhythm, S1/S2 appreciated, no murmurs, rubs or gallops. ABDOMEN: Abdomen soft and non-tender x4 quadrants, mild tenderness in the suprapubic region, negative rebound, no palpable masses or organomegaly. : Deferred. EXTREMITIES: Normal tone, moves all extremities spontaneously without reported pain. No obvious acute injury or deformity noted. NEURO: Alert and oriented x3, CN II-XII appear grossly intact. Cerebellar Functioning grossly intact. No obvious sensory or motor deficits. Speech clear and appropriate. PSYCH: normal affect, appropriate eye contact, fluid speech, with appropriate response to questioning. No reported suicidality or homicidality. SKIN: Warm, dry, color appropriate, normal turgor. No rashes noted. Course Course Course Narrative: Medical screening exam performed. Please refer to detailed history, exam, evaluation, and management by primary provider. Patient with vaginal spotting, status post uterus scraping but did some heavy lifting and now having spotting with wiping. There is current evaluation for possible uterine malignancy. Medications Administered Discontinued Medications Generic Name Dose Route Start Last Admin Trade Name Freq PRN Reason Stop Dose Admin Acetaminophen 975 mg 01/03/25 22:27 01/03/25 23:38 Acetaminophen 325 Mg Tablet PO 01/03/25 22:28 975 mg ONCE ONE Administration Medical Decision Making Medical Decision Making [facility] Narrative: 10:06 PM 01/03/2025 (Alina JOHNSON): The patient is a 64-year-old female presenting to the ED for evaluation of vaginal bleeding. The patient reports she was seen in this ED on 12/24 for the bleeding, ultrasound at that time showed a 6 mm endometrial stripe for which she followed up with blacktop paver operator and reportedly had a uterine scraping , clarification and chart review reveals patient underwent endometrial biopsy on 12/[address] Gil. The patient reports she had slight bleeding the day of the biopsy, and the morning of the , however bleeding then subsided. Patient reports today she had to move her washing machine, after pushing on the washing machine she felt an odd sensation at her vaginal meatus, patient reports she went to the bathroom and wiped away large amount of blood. Patient reports she then lifted a package of soda and had a similar sensation this time with associated abdominal cramping, patient reports she went to the bathroom, urinated blood-tinged urine, and again experienced blood when wiping. The patient reports she contacted her family who recommended she come to the ED for evaluation. The patient denies associated lightheadedness, dizziness, near-syncope, syncope, chest pain, shortness of breath, dysuria, diarrhea, or constipation. The patient reports since she has been in the ED she has had additional bleeding noted during ultrasound, and is now wearing a pad, has not needed to change the pad since arriving in the ED. The patient's exam demonstrates mild tenderness of the suprapubic region, negative rebound, no other acute findings. The patient is normotensive, afebrile, without tachycardia. The patient's laboratory evaluation is markedly reassuring, no leukocytosis, anemia, electrolyte abnormality, or SAM. The patient's urinalysis is blood-tinged, with large blood, small leukocyte esterase, greater than 20 RBCs, 11-20 WBCs, with no bacteria, negative nitrate. The patient's ultrasound shows left-sided intramural uterine fibroids, with 6 mm endometrium and trace fluid in the endometrial cavity, there are no adnexal lesions, no free fluid. The patient's presentation is concerning for possible clot dislodgement from recent biopsy, versus recurrence of already established vaginal bleeding. At this time given the patient's well-appearing exam, normal vital signs, and lack of anemia, there was no indication for emergent transfusion. The patient's CBC will be repeated 4 hours after initial lab draw, pending no significant decrease in H&H, patient will be discharged with the instructions to call OBGYN Sunday to move up her follow up appointment from the , for re-evaluation. 11:43 PM 01/03/2025 (Alina JOHNSON): Patient's repeat lab work demonstrates a mild drop in H&H, patient remains normotensive without tachycardia. At this time patient is safe for discharge home with outpatient OBGYN follow up. Admission/Observation Consideration of admission/observation: Escalation of care including admission/observation considered Lab Data MDM Lab Attestation statement: I reviewed the patient's lab results. 01/03/25 23:15 01/03/25 19:26 Labs: Lab Results 01/03/25 01/03/25 01/03/25 Range/Units 19:26 21:20 23:15 WBC 10.0 9.6 (4.8-10.8) X10*3/uL RBC 5.13 4.70 (4.20-5.50) X10*6/uL Hgb 14.2 13.3 (12.0-16.0) g/dl Hct 40.3 37.0 (37.0-47.0) % MCV 78.6 L 78.7 L (80.0-98.0) fL MCH 27.7 28.3 (27.0-33.0) pg MCHC 35.2 H 35.9 H (31.0-35.0) g/dl RDW 13.1 13.2 (11.0-16.0) % Plt Count 233 226 (160-400) X10*3/uL MPV 10.6 10.5 (9.4-12.3) fL Immature Gran % (Auto) 0.4 0.3 (0.0-0.4) % Neut % (Auto) 72.0 72.2 (45-73) % Lymph % (Auto) 19.2 L 19.9 L (20-40) % [place] % (Auto) 6.7 6.3 (2-11) % Eos % (Auto) 1.0 0.8 (0-4) % Baso % (Auto) 0.7 0.5 (0-2) % Lymph # (Auto) 1.9 1.9 (1.2-4.9) X10*3/uL [place] # (Auto) 0.7 0.6 (0.1-1.2) X10*3/uL Eos # (Auto) 0.1 0.1 (0.0-0.4) X10*3/uL Baso # (Auto) 0.1 0.1 (0.0-0.2) X10*3/uL Abs Immat Gran (auto) 0.04 H 0.03 (0.00-0.03) X10*3/uL Absolute Neuts (auto) 7.2 6.9 (2.0-8.3) x10*3/uL Absolute Nucleated RBC 0.000 0.000 (0.0-0.012) X10*3/uL Nucleated RBC % (auto) 0.0 0.0 (0.0-0.2) /100WBC Sodium 140 (135-145) mmol/L Potassium 4.0 (3.3-5.1) mmol/L Chloride 105 (96-108) mmol/L Carbon Dioxide 26 (22-29) mmol/L Anion Gap 13 (12-20) BUN 12 (9-16) mg/dL Creatinine 0.90 (0.5-1.4) mg/dL Estim Creat Clear Calc 55.2 Estimated GFR > 60 Random Glucose 85 (60-115) mg/dL Calcium 9.4 (8.4-10.2) mg/dL Urine Color Red A Urine Appearance Cloudy Urine pH 6.5 (5.0-9.0) Ur Specific [place] 1.015 (1.005-1.025) Urine Protein Trace (Neg-Trace) mg/dL Urine Glucose (UA) Negative (Negative) mg/dL Urine Ketones Negative (Negative) mg/dL Urine Blood Large (3+) H (Negative) Urine Nitrite Negative (Negative) Ur Leukocyte Esterase Small (1+) H (Negative) Urine RBC >20 H (0-2) /HPF Urine WBC 11-20 H (0-5) /HPF Ur Squamous Epith Cells 0-2 (0-2) /HPF Urine Bacteria None Seen (None Seen) Hyaline Casts 0-2 (0-2) /LPF Radiology Impression Discussion of test interpretation with radiology: I have reviewed the radiologist's reading. Radiologist Impression: US pelvis transabdominal and transvaginal with doppler interrogation Comparison: 12/17/2024 Findings: Transabdominal scanning performed for overall anatomy. Transvaginal scanning performed for additional detail. Anteverted uterus 7.7 cm in length. Normal echotexture. Left-sided intramural fibroids are present, measuring 12 x 13 x 11 mm, and 18 x 14 x 15 mm. Normal endometrium, 6 mm thickness. Trace amount of fluid is present within endometrial cavity. Ovaries are not visualized bilaterally. No gross adnexal lesions or collections. No free fluid Impression: 1. Uterine fibroids as described above. 2. Nonvisualization of the ovaries bilaterally. This document has been electronically signed by: Darvin Frey MD on 01/03/2025 19:57:43 External Record Review External record reviewed: Outpatient record and Prior outpatient labs Prescription Management I considered prescription management with: Pain Medication Discharge Plan Discharge Clinical Impression: Postmenopausal bleeding Patient Disposition: Home, Self-Care Instructions: Endometrial Biopsy (DC) Additional Instructions: Thank you for choosing [facility] Department for your care today. Thankfully your initial laboratory evaluation, ultrasound, urinalysis, and exam today are all reassuring. Additionally your repeat laboratory evaluation, 4 hours after the initial blood tests, did not show a concerning drop in your blood counts. At this time there is no indication for transfusion, admission to the hospital or continued ED observation, and it is safe to discharge you home. Please follow up with the your OBGYN Dr. Gil by calling Sunday to discuss your bleeding, ED visit, and to discuss moving up your scheduled follow up appointment if indicated. Please stay well hydrated and get plenty of rest. Please avoid any heavy lifting to avoid additional disruption of clots from your recent endometrial biopsy. Please monitor your bleeding and do not hesitate to return to the emergency department if you develop a significant increase in bleeding, or associated near fainting, fainting, or a sensation of a rapid heart rate. Please also follow up with your primary care physician for re-evaluation, additional management of your symptoms, and continued preventative care. If you do not have a primary care physician, please call the [facility] at [phone] to establish a new primary care physician. While waiting to establish your new primary care physician, you can call our Walk-in Care [facility] at [phone] for non-emergency needs. Please return to the emergency department if you develop a severe or sudden change in your symptoms, a fever over 100.4 that does not improve with Tylenol or Ibuprofen, recurrent vomiting, or any other new or worsening symptoms or concerns. Prescriptions: No Action ondansetron 4 mg tablet,disintegrating 4 mg PO Q8H PRN (Reason: nausea and vomiting) Qty: 20 0RF albuterol sulfate 90 mcg/actuation aerosol powdr breath activated 2 inh inhalation Q4H PRN (Reason: shortness of breath or wheezing) Qty: 1 0RF Rx Instructions: May dispense medication equivalent accepted by patient's insurance tramadol 50 mg tablet 50 mg PO Q8H PRN (Reason: pain) Qty: 9 0RF meclizine 25 mg tablet 25 mg PO TID PRN (Reason: dizziness) Qty: 15 0RF polyethylene glycol 3350 [Miralax] 17 gram/dose powder 17 g PO BID 4 Days Qty: 136 0RF senna 8.6 mg capsule 8.6 mg PO DAILY Qty: 14 0RF tranexamic acid 650 mg tablet 650 mg PO Q8H 3 Days Qty: 9 0RF Referrals: Jose Roberto Gil MD [Physician, DIRECTOR SUPPLY CHAIN] Clinical Impression: Postmenopausal bleeding Interventions: ED Discharge Assessment Last Done: 01/04/25 00:53 Discharge Date/Time: 01/04/25 01:06 Print Language: Upper Sorbian
[2025-01-03 19:41] LABS: MANUAL DIFF FLAG NO
[2025-01-03 20:05] LABS: Anion Gap 13 (12-20); Blood Urea Nitrogen 12 mg/dL (9-16); Calcium 9.4 mg/dL (8.4-10.2); Carbon Dioxide 26 mmol/L (22-29); Chloride 105 mmol/L (96-108); Creatinine Clr Calc Pharmacy 55.2; Estimated Glomerular Filt Rate > 60; Potassium 4.0 mmol/L (3.3-5.1); Sodium 140 mmol/L (135-145)
[2025-01-03 20:20] LABS: Hematocrit 40.3 % (37.0-47.0); Hemoglobin 14.2 g/dl (12.0-16.0); Imm Gran Abs Auto 0.04 X10*3/uL (0.00-0.03); Imm Gran Pct Auto 0.4 % (0.0-0.4); Lymphocytes Absolute Auto 1.9 X10*3/uL (1.2-4.9); Mean Corpuscular HGB Conc 35.2 g/dl (31.0-35.0); Mean Corpuscular Hemoglobin 27.7 pg (27.0-33.0); Mean Corpuscular Volume 78.6 fL (80.0-98.0); NRBC Abs Auto 0.000 X10*3/uL (0.0-0.012); NRBC Pct Auto 0.0 /100WBC (0.0-0.2); Platelet Count 233 X10*3/uL (160-400); Red Blood Count 5.13 X10*6/uL (4.20-5.50); White Blood Count 10.0 X10*3/uL (4.8-10.8)
--- OUTSIDE RECORDS SUMMARY | 2025-01-03 20:23 | XMS_ITS | Encounter Summary ---
Author Organization [employer] Address [address] [facility] [address] [place] [address] Care Team Providers Care Supervisor Dried Yeast Name Role Phone Akil Zee NP Primary Care Provider + [phone] Jacobo Rodríguez Unavailable Encounter Details Date Type Department Care Team (Late st Contact Info) Description 01/01/2025 Orders Only [place] [facility] [address] [place] [address] Akil Zee NP [address] [place] [address] Social History Tobacco Use Types Packs/Day Years [...] Care Team (Late st Contact Info) Description 01/08/2025 11:30 AM EST Office Visit [place] [facility] [address] [place] [address] Francisca Trinh LLD [address] [place] [address] 01/13/2025 12:30 PM EST Office Visit [place] [facility] [address] [place] [address] Akil Zee NP [address] [place] [address] documented as of this encounter Procedures Procedure Name Priority Date/Time Associated Diagnosis Comments CBC WITH AUTO DIFFERENTIAL Routine 12/17/2024 11:04 AM EDT documented in this encounter Results * CBC auto differential (12/17/2024 11:04 AM EDT) Blood Venous blood specimen / Unknown Akil Zee NP LAB BLOOD ORDERABLES Final R esult documented in this encounter Visit Diagnoses Not on filedocumented in this encounter Additional Health Concerns Assessment Noted Time PHQ-9 Depression Total Score: 18 023 12:29 PM EST documented as of this encounter Care Teams Supervisor Dried Yeast Relationship Specialty Start Date End Date Akil Zee NP [address] [place] [address] PCP - General Internal Medicine 02/24/22 Jacobo Rodríguez 12/18/24 documented as of this encounter
--- OUTSIDE RECORDS SUMMARY | 2025-01-03 20:23 | XMS_ITS | Encounter Summary ---
Author Organization [employer] Address [address] [facility] 7t [place] [address] Care Team Providers Care Composition Molder Name Role Phone Akil Zee NP Primary Care Provider + [phone] Jacobo Rodríguez Unavailable Encounter Details Date Type Department Care Team (Late st Contact Info) Description 01/01/2025 Telephone [facility] [facility] [address] [place] [address] Rayne Newman LPN Social History Tobacco Use Types Packs/Day Years [...] the past 12 months, has t he [employer], gas, oil or water [employer] threatened to shut off services in your [...] encounter Miscellaneous Notes * Telephone Encounter - Rayne Newman LPN - 01/01/2025 2:09 PM EST Images from the original note were not included. Called Ruth, appointment scheduled. UPHOLSTERY DEPARTMENT SUPERVISOR did an US and blood work to rule out uterine cancer. Waiting on results PRIYA Levy Triage Nurses Seen in ED and then by stroboscope operator. Pt declined hysterectomy. Please try to contact her and arrange visit with me (televisit ok) within the next month. If she has additional bleeding, she needs to call stroboscope operator immediately Thanks Akil Zee LONGSHORE EQUIPMENT OPERATOR documented in this encounter Plan of Treatment Upcoming Encounters Date Type Department Care Team (Late st Contact Info) Description 01/08/2025 11:30 AM EST Office Visit [place] [facility] [address] [place] [address] Francisca Trinh LLD [address] [place] [address] 01/13/2025 12:30 PM EST Office Visit [facility] [address] [place] [address] Akil Zee NP [address] [place] [address] documented as of this encounter Visit Diagnoses Not on filedocumented in this encounter Additional Health Concerns Assessment Noted Time PHQ-9 Depression Total Score: 18 023 12:29 PM EST documented as of this encounter Care Teams Composition Molder Relationship Specialty Start Date End Date Akil Zee NP [address] [place] [address] PCP - General Internal Medicine 02/24/22 Jacobo Rodríguez 12/18/24 documented as of this encounter
--- OUTSIDE RECORDS SUMMARY | 2025-01-03 20:23 | XMS_ITS | Encounter Summary ---
Author Organization [employer] Address [address] [place] [address] [address] [place] [address] Care Team Providers Care Container Coordinator Name Role Phone Akil Zee NP Primary Care Provider + [phone] Jacobo Rodríguez Unavailable Reason for Visit * Reason Comments Med Refill Encounter Details Date Type Department Care Team (Late st Contact Info) Description 12/14/2024 Refill [facility] [facility] [address] [place] [address] [facility] [address] [place] [address] Gastro-esophageal reflux disease without esophagitis Social History [...] Description 01/08/2025 11:30 AM EST Office Visit [place] [facility] [address] [place] [address] Francisca Trinh LLD [address] [place] [address] 01/13/2025 12:30 PM EST Office Visit [place] [facility] [address] [place] [address] Akil Zee NP [address] [place] [address] documented as of this encounter Visit Diagnoses Diagnosis Gastro-esophageal reflux disease without esophagitis documented in this encounter Additional Health Concerns Assessment Noted Time PHQ-9 Depression Total Score: 18 023 12:29 PM EST documented as of this encounter Care Teams Container Coordinator Relationship Specialty Start Date End Date Akil Zee NP [address] [place] [address] PCP - General Internal Medicine 02/24/22 Jacobo Rodríguez 12/18/24 documented as of this encounter
--- OUTSIDE RECORDS SUMMARY | 2025-01-03 20:23 | XMS_ITS ---
Author Organization [employer] Address [address] [place] [address] 7 [place] [address] Care Team Providers Care Production Line Solderer Name Role Phone Akil Zee NP Primary Care Provider + [phone] Jacobo Rodríguez Unavailable [facility] Complex Status:Outreach In Progress (Enrolling) Start date:12/18/2024 Enrollment reason:ADT Feed Overview [facility]. Evs C3 eligible Case Team Name Relationship Phone Jacobo Rodríguez(Responsible Staff) [phone] Continued Care and Services Coordination
--- OUTSIDE RECORDS SUMMARY | 2025-01-03 20:23 | XMS_ITS | Encounter Summary ---
Author Organization [employer] Address [address] [facility] [address]t [place] [address] Care Team Providers Care Drywaller Name Role Phone Akil Zee NP Primary Care Provider + [phone] Jacobo Rodríguez Unavailable Encounter Details Date Type Department Care Team (Late st Contact Info) Description 12/18/2024 Orders Only [place] [facility] [address] [place] [address] Akil Zee NP [address] [place] [address] Social History Tobacco Use Types Packs/Day Years [...] Description 01/08/2025 11:30 AM EST Office Visit [place] [facility] [address] [place] [address] Francisca Trinh LLD [address] [place] [address] 01/13/2025 12:30 PM EST Office Visit [facility] [facility] [address] [place] [address] Akil Zee NP [address] [place] [address] documented as of this encounter Procedures Procedure Name Priority Date/Time Associated Diagnosis Comments US PELVIS TRANSVAGINAL Routine 12/17/2024 9:48 AM EDT documented in this encounter Results * US Pelvis Transvaginal (12/17/2024 9:48 AM EDT) Anatomical Region Laterality Modality Pelvis Ultrasound us Akil Zee HIGHWAY CONSTRUCTION INSPECTOR IMG US PROCEDURES Final Resu lt documented in this encounter Visit Diagnoses Not on filedocumented in this encounter Additional Health Concerns Assessment Noted Time PHQ-9 Depression Total Score: 18 023 12:29 PM EST documented as of this encounter Care Teams Drywaller Relationship Specialty Start Date End Date Akil Zee NP [address] [place] [address] PCP - General Internal Medicine 02/24/22 Jacobo Rodríguez 12/18/24 documented as of this encounter
--- OUTSIDE RECORDS SUMMARY | 2025-01-03 20:23 | XMS_ITS | Encounter Summary ---
Author Organization [employer] Address [address] [facility] [address]t [place] [address] Care Team Providers Care Chemistry Teacher Name Role Phone Akil Zee NP Primary Care Provider + [phone] Jacobo Rodríguez Unavailable Reason for Visit * Reason Comments Med Refill Encounter Details Date Type Department Care Team (Late st Contact Info) Description 01/26/2022 Refill [facility] MED[facility] [address] [place] [address] Akil Zee NP [address] [place] [address] Allergic rhinitis, unspecified seasonality, unspecified trigger (Primary [...] Description 01/08/2025 11:30 AM EST Office Visit [facility] [address] [place] [address] Francisca Trinh LLD [address] [place] [address] 01/13/2025 12:30 PM EST Office Visit [place] [facility] [address] [place] [address] Akil Zee NP [address] [place] [address] documented as of this encounter Visit Diagnoses Diagnosis Allergic rhinitis, unspecified seasonality, unspecified trigger- Primary documented in this encounter Care Teams Chemistry Teacher Relationship Specialty Start Date End Date Akil Zee NP [address] [place] [address] PCP - General Internal Medicine 02/24/22 Jacobo Rodríguez 12/18/24 documented as of this encounter
--- OUTSIDE RECORDS SUMMARY | 2025-01-03 20:23 | XMS_ITS | Encounter Summary ---
Author Organization [employer] Address 75 [facility] 7t [place] [address] Care Team Providers Care Emu Farm Worker Name Role Phone Yayo, Akil PRIYA Primary Care Provider + [phone] Jacobo Rodríguez Unavailable Encounter Details Date Type Department Care Team ([facility] st Contact Info) Description 01/01/2025 Patient Outreach [facility] () Department [address] [phone] Jacobo Rodríguez Social History Tobacco Use Types Packs/Day Years [...] AM EST documented as of this encounter Progress Notes * Jacobo Rodríguez - 01/01/2025 9:10 AM EST 3rd outreach Unable to reach documented in this encounter Plan of Treatment Upcoming Encounters Date Type Department Care Team (Late st Contact Info) Description 01/08/2025 11:30 AM EST Office Visit [facility] 73 [place] [address] Francisca Trinh LLD 9 [place] [address] 01/13/2025 12:30 PM EST Office Visit [facility] MED[facility] 70 [place] [address] Akil Zee NP 70 [place] [address] documented as of this encounter Visit Diagnoses Not on filedocumented in this encounter Additional Health Concerns Assessment Noted Time PHQ-9 Depression Total Score: 18 023 12:29 PM EST documented as of this encounter Care Teams Emu Farm Worker Relationship Specialty Start Date End Date Akil Zee NP 70 [place] [address] PCP - General Internal Medicine 02/24/22 Jacobo Rodríguez 12/18/24 documented as of this encounter
--- OUTSIDE RECORDS SUMMARY | 2025-01-03 20:23 | XMS_ITS | Clinical Summary ---
Author Organization [employer] Address [address] [place] [address] 7t [place] [address] Care Team Providers Care Oil Pipeline Operator Name Role Phone Akil Zee NP Primary Care Provider + [phone] Jacobo Rodríguez Unavailable Allergies Active Allergy Reactions [...] Encounters Date Type Department Care Team Description 01/01/2025 Telephone [facility] 70 [place] [address] Rayne Newman LPN 01/01/2025 Orders Only [facility] [address] [place] [address] Akil Zee NP 01/01/2025 Patient Outreach [facility] () Department [address] [place] [phone] Jacobo Rodríguez 12/25/2024 [facility] Department [address] [place] [phone] Jacobo Rodríguez 12/18/2024 Patient Outreach [facility] () Department [address] [place] [phone] Jacobo Rodríguez c3 care management 12/18/2024 Orders Only [facility] [address] [place] [address] Akil Zee NP 12/18/2024 Telephone [facility] 70 [place] [address] Akil Zee NP ER Follow-up 12/17/2024 2:00 PM EDT Office Visit [facility] 70 [place] [address] Parris Mendez FNP Acute abdominal pain (Primary Dx); Abdominal distention; Uterine enlargement; Post-menopausal bleeding 12/16/2024 Telephone [facility] MEDICAL 73 [place] [address] Akil Zee NP Blood in Urine; Vaginal Bleeding 12/14/2024 Refill [facility] MEDICAL 70 [place] [address] Parris Mendez FNP Gastro-esophageal reflux disease without esophagitis 12/04/2024 10:00 AM EDT Office Visit [facility] DENTAL 73 [place] [address] Francisca Trinh LLD 11/13/2024 9:00 AM EDT Office Visit [facility] DENTAL [address] [place] [address] Francisca Trinh LLD from Last 3 Months [...] the past 12 months, has t he [employer], gas, oil or water [employer] threatened to shut off services in your [...] Description 01/08/2025 11:30 AM EST Office Visit [facility] DENTAL [address] [place] [address] Francisca Trinh LLD 9 [place] [address] 01/13/2025 12:30 PM EST Office Visit [facility] MEDICAL 70 [place] [address] Akil Zee, PRIYA 70 [place] [address] Health Maintenance Due Date Last Done Comments [...] 12/17/2024 2:34 PM EDT Acute abdominal pain CBC WITH AUTO DIFFERENTIAL Routine 12/17/2024 11:04 AM EDT US PELVIS TRANSVAGINAL Routine 9:48 AM EDT [...] (ABNORMAL) POCT urinalysis dipstick manually resulted (CPT 24759) (12/17/2024 2:34 PM EDT) Color, UA Yellow Clarity, UA Clear Glucose, UA Negative Bilirubin, UA Negative Ketones, UA Negative Spec Grav, UA 1.020 Blood, UA 2+(A) Negative, None Detected pH, UA 6.0 Protein, UA Moderate Urobilinogen, UA 4.0 Leukocytes, UA Negative Negative, Rare, Trace Nitrite, UA Negative Negative, None Detected Urine (Urine, Random) 12/17/2024 2:34 PM EDT [facility] POINT OF CARE TEST ENTER/ EDIT ORDERABLES Final Result * CBC auto differential (12/17/2024 11:04 AM EDT) Blood Venous blood specimen / Unknown Akil Zee DIGITAL SALES DIRECTOR LAB BLOOD ORDERABLES Final R esult * US Pelvis Transvaginal (12/17/2024 9:48 AM EDT) Anatomical Region Laterality Modality Pelvis Ultrasound Akil Zee NP IMG US PROCEDURES Final Resu lt * Referral to Ophthalmology (10/10/2024) Akil Zee NP OUTPATIENT REFERRAL ORDERABL ES Final Result * BI Mammogram Screening Tomosynthesis Bilateral (06/11/2023 2:09 PM EDT) Anatomical Region Laterality Modality Breast Bilateral Mammography Result [facility] Akil Zee NP IMG BI PROCEDURES Final Resu lt * Pap Smear (07/15/2019 12:00 AM EDT) Swab Result [facility] Provider LAB CYTOLOGY ORDERABLES F inal Result * HIV-1 antibody, EIA (04/26/2010) External HIV-1 Antibody Negative Blood Venous blood specimen / Unknown Result [facility] Historical Provider LAB BLOOD ORDERABLES Caren l Result from Last 3 Months or Most Recently Relevant to Health Maintenance Insurance [facility] C3 [place] STAND ADULT DENTAL - HSN FULL (MEDICAID) Care Teams Oil Pipeline Operator Relationship Specialty Start Date End Date Akil Zee NP [address] [place] [address] PCP - General Internal Medicine 02/24/22 Jacobo Rodríguez 12/18/24
--- OUTSIDE RECORDS SUMMARY | 2025-01-03 20:23 | XMS_ITS | Encounter Summary ---
Author Organization [email or web address] Address 75 [facility] 7t [place] [address] Care Team Providers Care Claim Rep Name Role Phone Akil Zee NP Primary Care Provider + [phone] Jacobo Rodríguez Unavailable Encounter Details Date Type Department Care Team (Late st Contact Info) Description 06/26/2023 Orders Only [place] [facility] [address] [place] [address] Akil Zee NP 70 [place] [address] Social History Tobacco Use Types Packs/Day Years [...] Description 01/08/2025 11:30 AM EST Office Visit [place] [facility] 73 [place] [address] Francisca Trinh LLD 9 [place] [address] 01/13/2025 12:30 PM EST Office Visit [facility] MEDICAL 70 [place] [address] Akil Zee NP 70 [place] [address] documented as of this encounter Procedures Procedure Name Priority Date/Time Associated Diagnosis Comments BI MAMMOGRAM SCREENING TOMOSYNTHESIS BILATERAL Routine 06/11/2023 2:09 PM EDT documented in this encounter Results * BI Mammogram Screening Tomosynthesis Bilateral (06/11/2023 2:09 PM EDT) Anatomical Region Laterality Modality Breast Bilateral Mammography Akil Zee NP IMG BI PROCEDURES Final Resu lt documented in this encounter Visit Diagnoses Not on filedocumented in this encounter Additional Health Concerns Assessment Noted Time PHQ-9 Depression Total Score: 18 023 12:29 PM EST documented as of this encounter Care Teams Claim Rep Relationship Specialty Start Date End Date Akil Zee NP 70 [place] [address] PCP - General Internal Medicine 02/24/22 Jacobo Rodríguez 12/18/24 documented as of this encounter
[2025-01-03 21:04] VITALS: BP 160/73; PULSE 84; RESP 16; TEMP 36.6; O2SAT 99
[2025-01-03 23:11] VITALS: BP 148/67; PULSE 71; RESP 18; O2SAT 100
[2025-01-03 23:21] LABS: Hematocrit 37.0 % (37.0-47.0); Hemoglobin 13.3 g/dl (12.0-16.0); Imm Gran Abs Auto 0.03 X10*3/uL (0.00-0.03); Imm Gran Pct Auto 0.3 % (0.0-0.4); Lymphocytes Absolute Auto 1.9 X10*3/uL (1.2-4.9); Mean Corpuscular HGB Conc 35.9 g/dl (31.0-35.0); Mean Corpuscular Hemoglobin 28.3 pg (27.0-33.0); Mean Corpuscular Volume 78.7 fL (80.0-98.0); NRBC Abs Auto 0.000 X10*3/uL (0.0-0.012); NRBC Pct Auto 0.0 /100WBC (0.0-0.2); Platelet Count 226 X10*3/uL (160-400); Red Blood Count 4.70 X10*6/uL (4.20-5.50); White Blood Count 9.6 X10*3/uL (4.8-10.8)
[2025-01-04 00:53] VITALS: BP 148/67; PULSE 71; RESP 18; TEMP 36.6; O2SAT 100
== END 2025-01-04 01:06 | disposition home or self-care (01) ==
PROVIDERS: Physician Assistant; Emergency Provider Emergency Medicine
DX: N95.0 Postmenopausal bleeding (principal); D25.1 Intramural leiomyoma of uterus; Z98.890 Other specified postprocedural states
CPT/HCPCS: 36415; 76830; 76856; 80048; 81001; 85025; 99284

== ENCOUNTER → 2025-01-03 18:10 | Outpatient (BNV) | payer MEDICAID, SELFPAY | PROVIDERS: Visit Provider Radiology Diagnostic Radiology | DX: N95.0 Postmenopausal bleeding (principal); D25.9 Leiomyoma of uterus, unspecified | CPT/HCPCS: 76830; 76856 ==

== ENCOUNTER 2025-01-05 15:47 | Outpatient (REF) | payer MEDICAID, SELFPAY ==
[2025-01-05 17:07] LABS: Hematocrit 41.5 % (37.0-47.0); Hemoglobin 14.5 g/dl (12.0-16.0); Mean Corpuscular HGB Conc 34.9 g/dl (31.0-35.0); Mean Corpuscular Hemoglobin 28.0 pg (27.0-33.0); Mean Corpuscular Volume 80.3 fL (80.0-98.0); NRBC Abs Auto 0.000 X10*3/uL (0.0-0.012); NRBC Pct Auto 0.0 /100WBC (0.0-0.2); Platelet Count 265 X10*3/uL (160-400); Red Blood Count 5.17 X10*6/uL (4.20-5.50); White Blood Count 9.6 X10*3/uL (4.8-10.8)
--- OUTSIDE RECORDS SUMMARY | 2025-01-05 17:46 | XMS_ITS | Encounter Summary ---
Author Organization [employer] Address 75 [facility] 7t [place] [address] Care Team Providers Care Supervisor Travel Trailer Name Role Phone Yayo, Akil PRIYA Primary Care Provider + [phone] Jacobo Rodríguez Unavailable Encounter Details Date Type Department Care Team ([facility] st Contact Info) Description 01/01/2025 Patient Outreach [facility] () Department [address] [phone] Jacobo Rodríguez Social History Tobacco [...] Description 01/08/2025 11:30 AM EST Office Visit [facility] 73 [place] [address] Francisca Trinh LLD 9 [place] [address] 01/13/2025 12:30 PM EST Office Visit [place] [facility] 70 [place] [address] Akil Zee NP 70 [place] [address] documented as of this encounter Visit Diagnoses Not on filedocumented in this encounter Additional Health Concerns Assessment Noted Time PHQ-9 Depression Total Score: 18 023 12:29 PM EST documented as of this encounter Care Teams Supervisor Travel Trailer Relationship Specialty Start Date End Date Akil Zee NP 70 [place] [address] PCP - General Internal Medicine 02/24/22 Jacobo Rodríguez 12/18/24 documented as of this encounter
--- OUTSIDE RECORDS SUMMARY | 2025-01-05 17:46 | XMS_ITS | Encounter Summary ---
Author Organization [employer] Address [address] [place] [address] 7t [place] [address] Care Team Providers Care Global Climate Change Researcher Name Role Phone Akil Zee NP Primary Care Provider + [phone] Jacobo Rodríguez Unavailable Reason for Visit * Reason Comments Med Refill Encounter Details Date Type Department Care Team (Late st Contact Info) Description 12/14/2024 Refill [facility] MED[facility] 70 [place] [address] [facility] 70 [place] [address] Gastro-esophageal reflux disease without esophagitis Social History [...] Description 01/08/2025 11:30 AM EST Office Visit [facility] 73 [place] [address] Francisca Trinh LLD 9 [place] [address] 01/13/2025 12:30 PM EST Office Visit [facility] 70 [place] [address] Akil Zee NP 70 [place] [address] documented as of this encounter Visit Diagnoses Diagnosis Gastro-esophageal reflux disease without esophagitis documented in this encounter Additional Health Concerns Assessment Noted Time PHQ-9 Depression Total Score: 18 023 12:29 PM EST documented as of this encounter Care Teams Global Climate Change Researcher Relationship Specialty Start Date End Date Akil Zee NP 70 [place] [address] PCP - General Internal Medicine 02/24/22 Jacobo Rodríguez 12/18/24 documented as of this encounter
--- OUTSIDE RECORDS SUMMARY | 2025-01-05 17:46 | XMS_ITS | Encounter Summary ---
Author Organization [employer] Address 75 [facility] 7t [place] [address] Care Team Providers Care Java Web User Interface Developer Name Role Phone Akil Zee NP Primary Care Provider + [phone] Jacobo Rodríguez Unavailable Encounter Details Date Type Department Care Team (Late st Contact Info) Description 06/26/2023 Orders Only [place] [facility] [address] [place] [address] Akil Zee NP 70 [place] [address] Social History Tobacco Use Types Packs/Day Years [...] Description 01/08/2025 11:30 AM EST Office Visit [place] [facility] 73 [place] [address] Francisca Trinh LLD 9 [place] [address] 01/13/2025 12:30 PM EST Office Visit [facility] MED[facility] 70 [place] [address] Akil Zee NP 70 [place] [address] documented as of this encounter Procedures Procedure [...] documented as of this encounter Care Teams Java Web User Interface Developer Relationship Specialty Start Date End Date Akil Zee NP 70 [place] [address] PCP - General Internal Medicine 02/24/22 Jacobo Rodríguez 12/18/24 documented as of this encounter
--- OUTSIDE RECORDS SUMMARY | 2025-01-05 17:46 | XMS_ITS | Encounter Summary ---
Author Organization [employer] Address 75 [facility] 7t [place] [address] Care Team Providers Care Hybrid Corn Breeder Name Role Phone Akil Zee NP Primary Care Provider + [phone] Jacobo Rodríguez Unavailable Reason for Visit * Reason Comments Med Refill Encounter Details Date Type Department Care Team (Late st Contact Info) Description 01/26/2022 Refill [facility] MEDICAL [address] [place] [address] Akil Zee NP 70 [place] [address] Allergic rhinitis, unspecified seasonality, unspecified trigger (Primary [...] Description 01/08/2025 11:30 AM EST Office Visit [facility] 73 [place] [address] Francisca Trinh LLD 9 [place] [address] 01/13/2025 12:30 PM EST Office Visit [facility] MED[facility] 70 [place] [address] Akil Zee NP 70 [place] [address] documented as of this encounter Visit Diagnoses Diagnosis Allergic rhinitis, unspecified seasonality, unspecified trigger- Primary documented in this encounter Care Teams Hybrid Corn Breeder Relationship Specialty Start Date End Date Akil Zee NP 70 [place] [address] PCP - General Internal Medicine 02/24/22 Jacobo Rodríguez 12/18/24 documented as of this encounter
--- OUTSIDE RECORDS SUMMARY | 2025-01-05 17:46 | XMS_ITS | Encounter Summary ---
Author Organization [employer] Address 75 [facility] 7t [place] [address] Care Team Providers Care Car Trimmer Name Role Phone Akil Zee NP Primary Care Provider + [phone] Jacobo Rodríguez Unavailable Encounter Details Date Type Department Care Team (Late st Contact Info) Description 12/18/2024 Orders Only [facility] [address] [place] [address] Akil Zee NP 70 [place] [address] Social History Tobacco Use Types Packs/Day Years [...] Description 01/08/2025 11:30 AM EST Office Visit [facility] 73 [place] [address] Francisca Trinh LLD 9 [place] [address] 01/13/2025 12:30 PM EST Office Visit [facility] MEDICAL [address] [place] [address] Akil Zee NP 70 [place] [address] documented as of this encounter Procedures Procedure Name Priority Date/Time Associated Diagnosis Comments US PELVIS TRANSVAGINAL Routine 12/17/2024 9:48 AM EDT documented in this encounter Results * US Pelvis Transvaginal (12/17/2024 9:48 AM EDT) Anatomical Region Laterality Modality Pelvis Ultrasound us Akil Zee CUSTOMER STRATEGY MANAGER IMG US PROCEDURES Final Resu lt documented in this encounter Visit Diagnoses Not on filedocumented in this encounter Additional Health Concerns Assessment Noted Time PHQ-9 Depression Total Score: 18 023 12:29 PM EST documented as of this encounter Care Teams Car Trimmer Relationship Specialty Start Date End Date Akil Zee NP 70 [place] [address] PCP - General Internal Medicine 02/24/22 Jacobo Rodríguez 12/18/24 documented as of this encounter
--- OUTSIDE RECORDS SUMMARY | 2025-01-05 17:46 | XMS_ITS | Clinical Summary ---
Author Organization [employer] Address [address] [place] [address] 7t [place] [address] Care Team Providers Care Settlement Worker Name Role Phone Akil Zee NP Primary Care Provider + [phone] Jacobo Rodríguez Unavailable Allergies Active Allergy Reactions [...] Type Department Care Team Description 01/01/2025 Telephone [facility] 70 [place] [address] Rayne Newman LPN 01/01/2025 Orders Only [facility] 58 [place] [address] Akil Zee NP 01/01/2025 Patient Outreach [facility] () Department [address] [place] [phone] Jacobo Rodríguez 12/25/2024 Patient Outreach [facility] Department [address] [place] [phone] Jacobo Rodríguez 12/18/2024 Patient Outreach [facility] Care [facility] () Department [address] [place] [phone] Jacobo Rodríguez c3 care management 12/18/2024 Orders Only [facility] [address] [place] [address] Akil Zee NP 12/18/2024 Telephone [facility] 70 [place] [address] Akil Zee NP ER Follow-up 12/17/2024 2:00 PM EDT Office Visit [facility] 70 [place] [address] Parris Mendez FNP Acute abdominal pain (Primary Dx); Abdominal distention; Uterine enlargement; Post-menopausal bleeding 12/16/2024 Telephone [facility] MEDICAL 73 [place] [address] Akil Zee NP Blood in Urine; Vaginal Bleeding 12/14/2024 Refill [facility] MED[facility] 70 [facility] [place] [address] Parris Mendez FNP Gastro-esophageal reflux disease without esophagitis 12/04/2024 10:00 AM EDT Office Visit [facility] DENTAL 73 [place] [address] Francisca Trinh LLD 11/13/2024 9:00 AM EDT Office Visit [facility] DENTAL [address] [place] [address] Francisca Trinh LLD from Last 3 Months [...] the past 12 months, has t he [employer], gas, oil or water [employer] threatened to shut off services in your [...] Description 01/08/2025 11:30 AM EST Office Visit [facility] DENTAL [address] [place] [address] Francisca Trinh LLD 9 [place] [address] 01/13/2025 12:30 PM EST Office Visit [facility] MEDICAL 70 [place] [address] Akil Zee, PRIYA 70 [place] [address] Health Maintenance Due Date Last Done Comments [...] (ABNORMAL) POCT urinalysis dipstick manually resulted (CPT 55883) (12/17/2024 2:34 PM EDT) Color, UA Yellow Clarity, UA Clear Glucose, UA Negative Bilirubin, UA Negative Ketones, UA Negative Spec Grav, UA 1.020 Blood, UA 2+(A) Negative, None Detected pH, UA 6.0 Protein, UA Moderate Urobilinogen, UA 4.0 Leukocytes, UA Negative Negative, Rare, Trace Nitrite, UA Negative Negative, None Detected Urine (Urine, Random) 12/17/2024 2:34 PM EDT [facility] POINT OF CARE TEST ENTER/ EDIT ORDERABLES Final Result * CBC auto differential (12/17/2024 11:04 AM EDT) Blood Venous blood specimen / Unknown Akil Zee HYDROPRESS OPERATOR LAB BLOOD ORDERABLES Final R esult * US Pelvis Transvaginal (12/17/2024 9:48 AM EDT) Anatomical Region Laterality Modality Pelvis Ultrasound Akil Zee NP IMG US PROCEDURES Final Resu lt * Referral to Ophthalmology (10/10/2024) Akil Zee NP OUTPATIENT REFERRAL ORDERABL ES Final Result * BI Mammogram Screening Tomosynthesis Bilateral (06/11/2023 2:09 PM EDT) Anatomical Region Laterality Modality Breast Bilateral Mammography Result [facility] Akil Zee NP IMG BI PROCEDURES Final Resu lt * Pap Smear (07/15/2019 12:00 AM EDT) Swab Result [facility] Provider LAB CYTOLOGY ORDERABLES F inal Result * HIV-1 antibody, EIA (04/26/2010) External HIV-1 Antibody Negative Blood Venous blood specimen / Unknown Result [facility] Historical Provider LAB BLOOD ORDERABLES Caren l Result from Last 3 Months or Most Recently Relevant to Health Maintenance Insurance [facility] C3 [place] STAND ADULT DENTAL - HSN FULL (MEDICAID) Care Teams Settlement Worker Relationship Specialty Start Date End Date Akil Zee NP 70 [facility] [address] PCP - General Internal Medicine 02/24/22 Jacobo Rodríguez 12/18/24
--- OUTSIDE RECORDS SUMMARY | 2025-01-05 17:46 | XMS_ITS | Encounter Summary ---
Author Organization [employer] Address 75 [facility] 7t [place] [address] Care Team Providers Care Lens Grinder Apprentice Name Role Phone Akil Zee NP Primary Care Provider + [phone] Jacobo Rodríguez Unavailable Encounter Details Date Type Department Care Team (Late st Contact Info) Description 01/01/2025 Telephone [facility] MEDICAL 70 [place] [address] Rayne Newman LPN Social History Tobacco Use [...] the past 12 months, has t he [email or web address], gas, oil or water [employer] threatened to shut off services in your [...] were not included. Called Ruth, appointment scheduled. CONTINUITY TESTER did an US and blood work to rule out uterine cancer. Waiting on results PRIYA Levy Triage Nurses Seen in ED and then by music therapist public school system. Pt declined hysterectomy. Please try to contact her and arrange visit with me (televisit ok) within the next month. If she has additional bleeding, she needs to call music therapist public school system immediately Thanks Akil Zee CORN LAB TECHNICIAN documented in this encounter Plan of Treatment Upcoming Encounters Date Type Department Care Team (Late st Contact Info) Description 01/08/2025 11:30 AM EST Office Visit [place] [facility] D[facility] 73 [place] [address] Francisca Trinh LLD 9 [place] [address] 01/13/2025 12:30 PM EST Office Visit [facility] MEDICAL 70 [place] [address] Akil Zee NP 70 [place] [address] documented as of this encounter Visit Diagnoses Not on filedocumented in this encounter Additional Health Concerns Assessment Noted Time PHQ-9 Depression Total Score: 18 023 12:29 PM EST documented as of this encounter Care Teams Lens Grinder Apprentice Relationship Specialty Start Date End Date Akil Zee NP 70 [place] [address] PCP - General Internal Medicine 02/24/22 Jacobo Rodríguez 12/18/24 documented as of this encounter
--- OUTSIDE RECORDS SUMMARY | 2025-01-05 17:46 | XMS_ITS | Encounter Summary ---
Author Organization [employer] Address 75 [facility] 7t [place] [address] Care Team Providers Care Sales Force Administrator Name Role Phone Akil Zee NP Primary Care Provider + [phone] Jacobo Rodríguez Unavailable Encounter Details Date Type Department Care Team (Late st Contact Info) Description 01/01/2025 Orders Only [place] [facility] [address] [place] [address] Akil Zee NP [address] [place] [address] Social History Tobacco Use Types Packs/Day Years [...] Description 01/08/2025 11:30 AM EST Office Visit [place] [facility] 73 [place] [address] Francisca Trinh LLD 9 [place] [address] 01/13/2025 12:30 PM EST Office Visit [facility] MED[facility] 70 [place] [address] Akil Zee NP [address] [place] [address] documented as of this encounter Procedures Procedure [...] documented as of this encounter Care Teams Sales Force Administrator Relationship Specialty Start Date End Date Akil Zee NP 70 [place] [address] PCP - General Internal Medicine 02/24/22 Jacobo Rodríguez 12/18/24 documented as of this encounter
--- OUTSIDE RECORDS SUMMARY | 2025-01-05 17:46 | XMS_ITS ---
Author Organization [employer] Address [address] [place] [address] 7 [place] [address] Care Team Providers Care Tender Labor Name Role Phone Akil Zee NP Primary Care Provider + [phone] Jacobo Rodríguez Unavailable [facility] Complex Status:Outreach In Progress (Enrolling) Start date:12/18/2024 Enrollment reason:ADT Feed Overview [facility]. Evs C3 eligible Case Team Name Relationship Phone Jacobo Rodríguez(Responsible Staff) [phone] Continued Care and Services Coordination
== END 2025-01-05 15:48 | disposition home or self-care (01) ==
LOC: HO.LAB 15:47
PROVIDERS: Visit Provider Obstetrics & Gynecology
DX: N95.0 Postmenopausal bleeding (principal)
CPT/HCPCS: 36415; 85027

== ENCOUNTER 2025-01-06 09:48 | Outpatient (AMB) | payer MEDICAID, SELFPAY ==
--- NOTE | 2025-01-06 09:59 | MHC.OFFVIS ---
Vital Signs 01/06/25 10:05 Height 5 ft 4 in Weight 137 lb BMI 23.5 BP 162/90 H Intake Visit Reasons: vaginal bleeding Hasher Machine Operator Required: Yes Hasher Machine Operator Language: Equipment Superintendent Services: Hasher Machine Operator Present (in person) Hasher Machine Operator Name: Reshma BETANCOURT Information Interpreted: non-clinical & clinical Psychological Assistant: Psychological Assistant Present (Reshma BETANCOURT) Accompanied by: Daughter Allergies Penicillins Allergy (Severe, Verified 01/06/25 10:07) ANAPHYLAXIS AND BLEEDING Post menopausal: Yes HPI Comments Details: The patient is presenting 5 days after endometrial biopsy. The patient complaining of vaginal bleeding, no feverishness chills or abdominal pain. The endometrial biopsy pathology report showed the following: Superficial fragments of benign endometrium, endocervical and atrophic squamous epithelium; mucoinflammatory material and blood; no atypia or hyperplasia identified. 01/05/2025 H&H was 14.5/41.5 PFSH Medical History Hx of ectopic Migraine PTSD (post-traumatic stress disorder) Hypothyroidism Anxiety Hyperlipidemia Depression Surgical History History of endometrial ablation Hx of cholecystectomy Family History Mother HTN (hypertension) Diabetes Father HTN (hypertension) Diabetes Maternal Grandmother Heart disease Social History Household Members: None Housing: Apartment Alcohol intake: never Patient Tobacco Use Status: Never used Tobacco Current occupational status: disabled Sexual orientation: Straight/Heterosexual Gender identity: Female Review of Systems Const All systems reviewed & are unremarkable except as noted in HPI and below Physical Exam General: Yes no CVA tenderness External Female Exam: normal external appearance and normal appearance of the urethra Speculum Exam - Vagina: normal appearance of the vagina, normal palpation, no lesions and no masses Speculum Exam - Cervix: normal appearance of the cervix, normal palpation, no lesions, no masses and nontender Bimanual exam- vagina & uterus: normal bimanual exam, normal palpation, uterine size normal, normal palpation, uterine shape normal, No Cervical tenderness present and non-tender Bimanual Exam- Adnexa, other: normal adnexae Back/Spine/Pelvis Back: no CVA tenderness Assessment & Plan Assessment & Plan (1) Postmenopausal bleeding: Code(s): N95.0 - Postmenopausal bleeding Category: Medical Plan: Discussed with the patient the results of the endometrial biopsy. Discussed with the patient the sensitivity, specificity, positive and negative predictive value, of endometrial biopsy in detecting endometrial pathology including but not limited to endometrial hyperplasia, cancer and other pathology; instructed the patient to call in case vaginal bleeding recurs, the next step will be to proceed with a diagnostic hysteroscopy/D&C for further endometrial sampling evaluation to rule out endometrial pathology. All questions answered and the patient verbalized understanding and agreed with the plan. Coding Level of Care Code Est Pt Level 3 (93091) Diagnoses Postmenopausal bleeding N95.0
[2025-01-06 10:05] VITALS: BP 162/90; BMI 23.5
--- OUTSIDE RECORDS SUMMARY | 2025-01-06 11:03 | XMS_ITS | Encounter Summary ---
Author Organization [employer] Address [address] [facility] 7t [place] [address] Care Team Providers Care Baby Attendant Name Role Phone Akil eZe NP Primary Care Provider + [phone] Jacobo Rodríguez Unavailable Encounter Details Date Type Department Care Team (Late st Contact Info) Description 12/18/2024 Orders Only [facility] [address] [place] [address] Akil Zee NP [address] [place] [address] Social History Tobacco Use Types Packs/Day Years [...] Description 01/08/2025 11:30 AM EST Office Visit [place] [facility] [address] [place] [address] Francisca Trinh LLD 9 [place] [address] 01/13/2025 12:30 PM EST Office Visit [facility] [address] [place] [address] Akil Zee NP 70 [place] [address] documented as of this encounter Procedures Procedure Name Priority Date/Time Associated Diagnosis Comments US PELVIS TRANSVAGINAL Routine 12/17/2024 9:48 AM EDT documented in this encounter Results * US Pelvis Transvaginal (12/17/2024 9:48 AM EDT) Anatomical Region Laterality Modality Pelvis Ultrasound us Akil Zee [employer] INTEGRATION SPECIALIST IMG US PROCEDURES Final Resu lt documented in this encounter Visit Diagnoses Not on filedocumented in this encounter Additional Health Concerns Assessment Noted Time PHQ-9 Depression Total Score: 18 023 12:29 PM EST documented as of this encounter Care Teams Baby Attendant Relationship Specialty Start Date End Date Akil Zee NP [address] [place] [address] PCP - General Internal Medicine 02/24/22 Jacobo Rodríguez 12/18/24 documented as of this encounter
--- OUTSIDE RECORDS SUMMARY | 2025-01-06 11:03 | XMS_ITS | Encounter Summary ---
Author Organization [employer] Address [address] [place] [address] 7t [place] [address] Care Team Providers Care Swimming Coach Name Role Phone Akil Zee NP Primary Care Provider + [phone] Jacobo Rodríguez Unavailable Reason for Visit * Reason Comments Med Refill Encounter Details Date Type Department Care Team (Late st Contact Info) Description 12/14/2024 Refill [facility] [address] [place] [address] [facility] [address] [place] [address] Gastro-esophageal reflux disease without esophagitis Social History [...] Description 01/08/2025 11:30 AM EST Office Visit [place] [facility] [address] [place] [address] Francisca Trinh LLD 9 [place] [address] 01/13/2025 12:30 PM EST Office Visit [place] [facility] [address] [place] [address] Akil Zee NP [address] [place] [address] documented as of this encounter Visit Diagnoses Diagnosis Gastro-esophageal reflux disease without esophagitis documented in this encounter Additional Health Concerns Assessment Noted Time PHQ-9 Depression Total Score: 18 023 12:29 PM EST documented as of this encounter Care Teams Swimming Coach Relationship Specialty Start Date End Date Akil Zee NP 70 [place] [address] PCP - General Internal Medicine 02/24/22 Jacobo Rodríguez 12/18/24 documented as of this encounter
--- OUTSIDE RECORDS SUMMARY | 2025-01-06 11:03 | XMS_ITS | Encounter Summary ---
Author Organization [employer] Address [address] [facility] 7t [place] [address] Care Team Providers Care Offset Printing Operator Name Role Phone Akil Zee NP Primary Care Provider + [phone] Jacobo Rodríguez Unavailable Encounter Details Date Type Department Care Team (Late st Contact Info) Description 06/26/2023 Orders Only [facility] [address] [place] [address] Akil Zee NP [address] [place] [address] Social History Tobacco Use Types Packs/Day Years [...] Description 01/08/2025 11:30 AM EST Office Visit [place] [facility] [address] [place] [address] Francisca Trinh LLD 9 [place] [address] 01/13/2025 12:30 PM EST Office Visit [facility] 70 [place] [address] Akil Zee NP [address] [place] [address] documented as of this encounter Procedures Procedure [...] documented as of this encounter Care Teams Offset Printing Operator Relationship Specialty Start Date End Date Akil Zee NP 70 [place] [address] PCP - General Internal Medicine 02/24/22 Jacobo Rodríguez 12/18/24 documented as of this encounter
--- OUTSIDE RECORDS SUMMARY | 2025-01-06 11:03 | XMS_ITS | Encounter Summary ---
Author Organization [employer] Address [address] [facility] 7t [place] [address] Care Team Providers Care Application Release Manager Name Role Phone Yayo, Akil PRIYA Primary Care Provider + [phone] Jacobo Rodríguez Unavailable Encounter Details Date Type Department Care Team ([facility] st Contact Info) Description 01/01/2025 Patient Outreach [facility] () Department [address] [phone] Jacobo Rodríguez Social History Tobacco [...] Description 01/08/2025 11:30 AM EST Office Visit [facility] [address] [place] [address] Francisca Trinh LLD 9 [place] [address] 01/13/2025 12:30 PM EST Office Visit [place] [facility] [address] [place] [address] Akil Zee NP [address] [place] [address] documented as of this encounter Visit Diagnoses Not on filedocumented in this encounter Additional Health Concerns Assessment Noted Time PHQ-9 Depression Total Score: 18 023 12:29 PM EST documented as of this encounter Care Teams Application Release Manager Relationship Specialty Start Date End Date Akil Zee NP [address] [place] [address] PCP - General Internal Medicine 02/24/22 Jacobo Rodríguez 12/18/24 documented as of this encounter
--- OUTSIDE RECORDS SUMMARY | 2025-01-06 11:03 | XMS_ITS | Clinical Summary ---
Author Organization [employer] Address [address] [place] [address] 7t [place] [address] Care Team Providers Care Musical Instrument Mechanic Name Role Phone Akil Zee NP Primary Care Provider + [phone] Jacobo Rodríguez Unavailable Allergies Active Allergy Reactions [...] Type Department Care Team Description 01/01/2025 Telephone [facility] 70 [place] [address] Rayne Newman LPN 01/01/2025 Orders Only [facility] [address] [place] [address] Akil Zee NP 01/01/2025 Patient Outreach [facility] () Department [address] [place] [phone] Jacobo Rodríguez 12/25/2024 [facility] Outreach [facility] Department [address] [place] [phone] Jacobo Rodríguez 12/18/2024 Patient Outreach [facility] () Department [address] [place] [phone] Jacobo Rodríguez c3 care management 12/18/2024 Orders Only [facility] [address] [place] [address] Akil Zee NP 12/18/2024 Telephone [facility] 70 [place] [address] Akil Zee NP ER Follow-up 12/17/2024 2:00 PM EDT Office Visit [facility] 70 [place] [address] Parris Mendez FNP Acute abdominal pain (Primary Dx); Abdominal distention; Uterine enlargement; Post-menopausal bleeding 12/16/2024 Telephone [facility] [address] [place] [address] Akil Zee NP Blood in Urine; Vaginal Bleeding 12/14/[address] [facility] [address] [facility] [place] [address] Parris Mendez FNP Gastro-esophageal reflux disease without esophagitis 12/04/2024 10:00 AM EDT Office Visit [facility] D[facility] [address] [place] [address] Francisca Trinh LLD 11/13/2024 9:00 AM EDT Office Visit [facility] [address] [place] [address] Francisca Trinh LLD from Last 3 Months [...] the past 12 months, has t he [employer], gas, oil or water [employer] threatened to shut off services in your [...] Visit [facility] DENTAL [address] [place] [address] Francisca Trinh LLD 9 [place] [address] 01/13/2025 12:30 PM EST Office Visit [facility] 70 [place] [address] Akil Zee, PRIYA [address] [place] [address] Health Maintenance Due Date Last Done Comments [...] (ABNORMAL) POCT urinalysis dipstick manually resulted (CPT 64405) (12/17/2024 2:34 PM EDT) Color, UA Yellow Clarity, UA Clear Glucose, UA Negative Bilirubin, UA Negative Ketones, UA Negative Spec Grav, UA 1.020 Blood, UA 2+(A) Negative, None Detected pH, UA 6.0 Protein, UA Moderate Urobilinogen, UA 4.0 Leukocytes, UA Negative Negative, Rare, Trace Nitrite, UA Negative Negative, None Detected Urine (Urine, Random) 12/17/2024 2:34 PM EDT [facility] POINT OF CARE TEST ENTER/ EDIT ORDERABLES Final Result * CBC auto differential (12/17/2024 11:04 AM EDT) Blood Venous blood specimen / Unknown Akil Zee BABYSITTER LAB BLOOD ORDERABLES Final R esult * US Pelvis Transvaginal (12/17/2024 9:48 AM EDT) Anatomical Region Laterality Modality Pelvis Ultrasound Akil Zee NP IMG US PROCEDURES Final Resu lt * Referral to Ophthalmology (10/10/2024) Akil Zee NP OUTPATIENT REFERRAL ORDERABL ES Final Result * BI Mammogram Screening Tomosynthesis Bilateral (06/11/2023 2:09 PM EDT) Anatomical Region Laterality Modality Breast Bilateral Mammography Result [facility] Akil Zee NP IMG BI PROCEDURES Final Resu lt * Pap Smear (07/15/2019 12:00 AM EDT) Swab Result [facility] Provider LAB CYTOLOGY ORDERABLES F inal Result * HIV-1 antibody, EIA (04/26/2010) External HIV-1 Antibody Negative Blood Venous blood specimen / Unknown Result [facility] Historical Provider LAB BLOOD ORDERABLES Caren l Result from Last 3 Months or Most Recently Relevant to Health Maintenance Insurance [facility] C3 [place] STAND ADULT DENTAL - HSN FULL (MEDICAID) Care Teams Musical Instrument Mechanic Relationship Specialty Start Date End Date Akil Zee NP [address] [place] [facility] [address] PCP - General Internal Medicine 02/24/22 Jacobo Rodríguez 12/18/24
--- OUTSIDE RECORDS SUMMARY | 2025-01-06 11:03 | XMS_ITS | Encounter Summary ---
Author Organization [employer] Address [address] [facility] 7t [place] [address] Care Team Providers Care Transfer Coordinator Name Role Phone Akil Zee NP Primary Care Provider + [phone] Jacobo Rodríguez Unavailable Reason for Visit * Reason Comments Med Refill Encounter Details Date Type Department Care Team (Late st Contact Info) Description 01/26/2022 Refill [facility] MEDICAL [address] [place] [address] Akil Zee NP [address] [place] [address] Allergic rhinitis, unspecified seasonality, unspecified trigger (Primary [...] Description 01/08/2025 11:30 AM EST Office Visit [facility] [address] [place] [address] Francisca Trinh LLD 9 [place] [address] 01/13/2025 12:30 PM EST Office Visit [place] [facility] 70 [place] [address] Akil Zee NP [address] [place] [address] documented as of this encounter Visit Diagnoses Diagnosis Allergic rhinitis, unspecified seasonality, unspecified trigger- Primary documented in this encounter Care Teams Transfer Coordinator Relationship Specialty Start Date End Date Akil Zee NP [address] [place] [address] PCP - General Internal Medicine 02/24/22 Jacobo Rodríguez 12/18/24 documented as of this encounter
--- OUTSIDE RECORDS SUMMARY | 2025-01-06 11:03 | XMS_ITS | Encounter Summary ---
Author Organization [email or web address] Address [address] [facility] 7t [place] [address] Care Team Providers Care Roll Over Press Operator Name Role Phone Akil Zee NP Primary Care Provider + [phone] Jacobo Rodríguez Unavailable Encounter Details Date Type Department Care Team (Late st Contact Info) Description 01/01/2025 Orders Only [facility] [address] [place] [address] Akil Zee NP [address] [place] [address] Social History Tobacco Use Types Packs/Day Years [...] Description 01/08/2025 11:30 AM EST Office Visit [place] 73 [place] [address] Francisca Trinh LLD 9 [place] [address] 01/13/2025 12:30 PM EST Office Visit [facility] 70 [place] [address] Akil Zee NP [address] [place] [address] documented as of this encounter Procedures Procedure [...] documented as of this encounter Care Teams Roll Over Press Operator Relationship Specialty Start Date End Date Akil Zee NP 70 [place] [address] PCP - General Internal Medicine 02/24/22 Jacobo Rodríguez 12/18/24 documented as of this encounter
--- OUTSIDE RECORDS SUMMARY | 2025-01-06 11:03 | XMS_ITS ---
Author Organization [employer] Address [address] [place] [address] 7 [place] [address] Care Team Providers Care Control Technician Name Role Phone Akil Zee NP Primary Care Provider + [phone] Jacobo Rodríguez Unavailable [facility] Complex Status:Outreach In Progress (Enrolling) Start date:12/18/2024 Enrollment reason:ADT Feed Overview [facility]. Evs C3 eligible Case Team Name Relationship Phone Jacobo Rodríguez(Responsible Staff) [phone] Continued Care and Services Coordination
--- OUTSIDE RECORDS SUMMARY | 2025-01-06 11:03 | XMS_ITS | Encounter Summary ---
Author Organization [employer] Address [address] [facility] 7t [place] [address] Care Team Providers Care Farm Equipment Mechanic Apprentice Name Role Phone Akil Zee NP Primary Care Provider + [phone] Jacobo Rodríguez Unavailable Encounter Details Date Type Department Care Team (Late st Contact Info) Description 01/01/2025 Telephone [facility] [address] [place] [address] Rayne Newman LPN Social History Tobacco Use [...] the past 12 months, has t he [email or web address], gas, oil or water [employer] threatened to shut off services in your [...] were not included. Called Ruth, appointment scheduled. OIL LEASE BROKER did an US and blood work to rule out uterine cancer. Waiting on results PRIYA Levy Triage Nurses Seen in ED and then by mobile application tester. Pt declined hysterectomy. Please try to contact her and arrange visit with me (televisit ok) within the next month. If she has additional bleeding, she needs to call mobile application tester immediately Thanks Akil Zee [employer] documented in this encounter Plan of Treatment Upcoming Encounters Date Type Department Care Team (Late st Contact Info) Description 01/08/2025 11:30 AM EST Office Visit [place] [facility] [address] [place] [address] Francisca Trinh LLD 9 [place] [address] 01/13/2025 12:30 PM EST [facility] 70 [place] [address] Akil Zee NP [address] [place] [address] documented as of this encounter Visit Diagnoses Not on filedocumented in this encounter Additional Health Concerns Assessment Noted Time PHQ-9 Depression Total Score: 18 023 12:29 PM EST documented as of this encounter Care Teams Farm Equipment Mechanic Apprentice Relationship Specialty Start Date End Date Akil Zee NP [address] [place] [address] PCP - General Internal Medicine 02/24/22 Jacobo Rodríguez 12/18/24 documented as of this encounter
== END 2025-01-06 10:26 | disposition home or self-care (01) ==
LOC: HO.HWS 09:48
PROVIDERS: Visit Provider Obstetrics & Gynecology
DX: N95.0 Postmenopausal bleeding (principal)
CPT/HCPCS: 99213

== ENCOUNTER → 2025-01-06 09:48 | Outpatient (BNVA) | payer MEDICAID, SELFPAY | PROVIDERS: Visit Provider Obstetrics & Gynecology | DX: Z71.2 Person consulting for explanation of examination or test findings (principal); N95.0 Postmenopausal bleeding | CPT/HCPCS: 99212 ==